=== PATIENT | female | born 1970 | race Caucasian/White ===

== ENCOUNTER 2021-10-16 03:15 | Day surgery (SDC) | payer BC, OTHER, SELFPAY ==
[2021-09-29 10:38] VITALS: BMI 32.3
[2021-10-16 08:16] VITALS: BMI 32.6
--- NOTE | 2021-10-16 08:34 | WPDANESEPPF ---
Anes - Initial Pre Proc Eval Procedure: Operation Date: 10/16/21 09:30 Proposed Procedures p Screening Colonoscopy - Naren Mcgill MD Date/Time: 10/16/21 08:34 Surgeon: Naren Mcgill MD Pre Op Diagnosis: neoplasm screening Patient Data Age: 51 Gender: F Height: 1.65 m Weight: 89 kg Allergies Allergy/AdvReac Type Severity Reaction Status Date / Time Penicillins Allergy Unknown Other Verified 09/29/21 10:35 Home Medications Medication Instructions Recorded Confirmed Type cetirizine 10 mg tablet (Zyrtec) 10 mg PO DAILY 09/29/21 09/29/21 History drospirenone (contraceptive) 4 mg 1 tablet PO DAILY 09/29/21 09/29/21 History (28) tablet (Slynd) ergocalciferol (vitamin D2) 1,250 1 cap PO USEASDIRECTD 09/29/21 09/29/21 History mcg (50,000 unit) capsule fluoxetine 20 mg capsule 20 mg PO DAILY 09/29/21 09/29/21 History ibuprofen 600 mg tablet 600 mg PO Q6H PRN Pain 09/29/21 09/29/21 History lisinopril 20 mg tablet 20 mg PO DAILY 09/29/21 09/29/21 History multivitamin with minerals-folic 1 tablet PO DAILY 09/29/21 09/29/21 History acid 0.4 mg tablet omega-3 fatty acids-fish oil 684 1 cap PO DAILY 09/29/21 10/16/21 History mg-1,200 mg capsule,delayed release rosuvastatin 10 mg tablet 10 mg PO DAILY 09/29/21 09/29/21 History Patient hx anesthesia problems: none Family hx anesthesia problems: none Results Review: All pre-operative results and documents have been reviewed as part of the pre-operative evaluation. [facility] Past Medical History Medical History (Updated 10/16/21 @ 08:54 by Naren Mcgill MD) Depression Hyperlipidemia Hypertension Family History Family History (Updated 06/27/17 @ 08:38 by DOCTOR UNKNOWN) Father Hypertension Family history of arthritis Family history of malignant neoplasm Family history of mental disorder Mother Hypertension Social History Social History Smoking status: Former smoker Tobacco type: cigarettes Smoking end date: 04/29/09 Alcohol intake: current Drinks per week: 10 Living arrangements: with family Spiritual care concerns: No Anes - Eval Final PreProcedure Day of Procedure 10/16/21 08:34 Patient weight: obese Heart: regular rate and rhythm Lungs: clear to auscultation Airway: Mallampati scale class II Neurological: alert and oriented Last oral intake: >/= 8 hours ASA classification: III Emergent: no Anesthetic plan: proceed Anesthesia type and monitoring: general GIVS and standard monitoring Results Review: All pre-operative results and documents have been reviewed as part of the pre-operative evaluation. Informed Consent: The patient's anesthetic plan and its attendant risks and benefits were discussed with the patient/family/POA. Questions were solicited and answers provided to the satisfaction of the patient/family/POA.
[2021-10-16 08:38] VITALS: BP 119/82; PULSE 74; RESP 18; TEMP 36.3; O2SAT 100; BMI 32.6
--- NOTE | 2021-10-16 08:52 | PM.IMHP ---
H&P: HPI History of Present Illness Date/Time: 10/16/21 08:52 Chief Complaint: Family history of colon polyps. Neoplasia screening. Narrative: This is a 51-year-old white female patient presents for screening colonoscopy. Patient's current Weight, appetite and bowel movements are normal. She denies abdominal pain. Family history is significant that her mother had colon polyps. Patient has a previous colonoscopy 2012 that was unremarkable. Review of Systems Review of Systems: review of systems noncontributory. [facility] Past Medical History Medical History (Updated 10/16/21 @ 08:54 by Naren Mcgill MD) Depression Hyperlipidemia Hypertension Family History Family History (Updated 06/27/17 @ 08:38 by DOCTOR UNKNOWN) Father Hypertension Family history of arthritis Family history of malignant neoplasm Family history of mental disorder Mother Hypertension Social History Social History Smoking status: Former smoker Tobacco type: cigarettes Smoking end date: 04/29/09 Alcohol intake: current Drinks per week: 10 Living arrangements: with family Spiritual care concerns: No Meds Home Medications and Allergies Home Medications Medication Instructions Recorded Confirmed Type cetirizine 10 mg tablet (Zyrtec) 10 mg PO DAILY 09/29/21 09/29/21 History drospirenone (contraceptive) 4 mg 1 tablet PO DAILY 09/29/21 09/29/21 History (28) tablet (Slynd) ergocalciferol (vitamin D2) 1,250 1 cap PO USEASDIRECTD 09/29/21 09/29/21 History mcg (50,000 unit) capsule fluoxetine 20 mg capsule 20 mg PO DAILY 09/29/21 09/29/21 History ibuprofen 600 mg tablet 600 mg PO Q6H PRN Pain 09/29/21 09/29/21 History lisinopril 20 mg tablet 20 mg PO DAILY 09/29/21 09/29/21 History multivitamin with minerals-folic 1 tablet PO DAILY 09/29/21 09/29/21 History acid 0.4 mg tablet omega-3 fatty acids-fish oil 684 1 cap PO DAILY 09/29/21 10/16/21 History mg-1,200 mg capsule,delayed release rosuvastatin 10 mg tablet 10 mg PO DAILY 09/29/21 09/29/21 History Allergies Allergy/AdvReac Type Severity Reaction Status Date / Time Penicillins Allergy Unknown Other Verified 09/29/21 10:35 Vital Signs Vital Signs - 24 hr 10/16/21 08:38 Temperature 97.3 F L Pulse Rate 74 Respiratory Rate 18 Blood Pressure 119/82 Pulse Oximetry 100 Oxygen Delivery Room Air Exam Narrative: Physical exam reveals patient to be alert. Vital signs stable. HEENT exam is unremarkable. Patient is anicteric. Lungs are clear to auscultation and to percussion. Heart is without murmur or extra sounds. Abdominal exam bowel sounds are present soft nontender with no organomegaly. Digital external rectal exam is normal. Assessment and Plan Assessment and plan (1) Family history of colonic polyps: Code(s): Z83.71 - Family history of colonic polyps Status: Acute Assessment and Plan: Patient's mother has had colon polyps. For this reason as well as her age screening colonoscopy is advised. Further recommendations will be given after colonoscopy.
[2021-10-16] MEDS: SIMETHICONE ORAL SUSPENSION 20 MG/0.3 ML 30 ML BOTTLE 0.6 ML IRRIGATION (09:14)
[2021-10-16] MEDS: LACTATED RINGERS 1,000 ML 150 ML IV CONT (09:21)
[2021-10-16 09:24] VITALS: BP 120/81; PULSE 59; RESP 23; O2SAT 100
[2021-10-16 09:34] VITALS: BP 133/93; PULSE 59; RESP 20; O2SAT 100
[2021-10-16 09:44] VITALS: BP 141/94; PULSE 64; RESP 20; O2SAT 100
== END 2021-10-16 09:46 | disposition home or self-care (01) ==
PROVIDERS: PCP Physician Assistant; Visit Provider Internal Medicine Gastroenterology
PROC: 0DJD8ZZ Inspection of Lower Intestinal Tract, Via Natural or Artificial Opening Endoscopic (ICD-10-PCS; CPT 45378; principal; 2021-10-16 09:30)
DX: Z12.11 Encounter for screening for malignant neoplasm of colon (principal); K63.5 Polyp of colon; Z83.71 Family history of colonic polyps; K64.8 Other hemorrhoids; F32.A Depression, unspecified; E78.5 Hyperlipidemia, unspecified; I10 Essential (primary) hypertension; Z87.891 Personal history of nicotine dependence; E66.8 Other obesity; Z68.32 Body mass index [BMI] 32.0-32.9, adult
CPT/HCPCS: 45385; 88305; J2704; J7120

== ENCOUNTER → 2021-12-15 07:57 | Outpatient (CLI) | payer BC, OTHER, SELFPAY ==
--- NOTE | ~2021-12-15 | US_ITS ---
EXAMINATION: US right upper quadrant DATE: 12/15/2021 08:23 INDICATION: Right upper quadrant pain TECHNIQUE: Multiple grayscale and Doppler ultrasound images of the abdomen were obtained. COMPARISON: None available FINDINGS: Bowel gas obscures visualization of the pancreas. The visualized portions of the pancreas a re unremarkable. The liver is normal with normal echogenicity and echotexture. No surface nodularity. Normal hepatopetal flow in the main portal vein. There appears to be a stone near the neck of the ga llbladder. There is no gallbladder wall thickening or pericholecystic fluid. The normal common bile d uct measures 4 mm. There was no sonographic [place] sign. IMPRESSION: 1. Probable stone near the gallbladder neck without findings to suggest cholecystitis. Reviewed, dictated and finalized at location A. IMPRESSION: 1. Probable stone near the gallbladder neck without findings to suggest cholecy stitis.
== END ==
PROVIDERS: PCP Physician Assistant; Visit Provider Physician Assistant
DX: R10.11 Right upper quadrant pain (principal)
CPT/HCPCS: 76705

== ENCOUNTER 2021-12-22 07:42 | Outpatient (CLI) | payer BC, OTHER, SELFPAY ==
--- NOTE | 2021-12-22 07:49 | ECG_ITS ---
Measurements Intervals [place] Rate: 63 P: 3 MD: 162 QRS: 13 QRSD: 85 T: 4 QT: 394 QTc: 406 Interpretive Statements SINUS RHYTHM LOW VOLTAGE IN THE LIMB LEADS OTHERWISE WITHIN NORMAL LIMITS NO PREVIOUS ECG AVAILABLE FOR COMPARISON Electronically Signed On 12-22-2021 12:48:09 CDT by Rogerio Reynolds M.D.
[2021-12-22 08:18] LABS: Basophils Absolute Auto 0.1 K/mm3 (0.0-0.1); Basophils Percent Auto 0.7 % (0.2-1.2); Eosinophils Absolute Auto 0.6 K/mm3 (0-0.3); Hematocrit 39.1 % (37.0-47.0); Hemoglobin 13.1 g/dL (12.0-15.0); Immature Granulocyte Absolute 0.02 K/mm3 (0.00-0.031); Immature Granulocyte Percent A 0.3 % (0-0.5); Lymphocytes Absolute Auto 1.54 K/mm3 (0.9-3.2); Lymphocytes Percent Auto 22.1 % (18.3-44.2); Mean Corpuscular HGB Conc 33.5 g/dl (32-36); Mean Corpuscular Hemoglobin 31.7 pg (26-34); Mean Corpuscular Volume 94.7 fl (80-100); Mean Platelet Volume 9.6 fl (7.4-10.4); Monocytes Absolute Auto 0.5 K/mm3 (0.1-0.6); Monocytes Percent Auto 7.4 % (2.6-8.5); Neutrophils Absolute Auto 4.3 K/mm3 (1.3-6.7); Neutrophils Percent Auto 61.5 % (45.5-73.1); Platelet Count Result 216 k/mm3 (150-375); Red Blood Count 4.13 M/mm3 (4.2-5.4)
[2021-12-22 08:32] LABS: Alanine Aminotransferase 25 U/L (6-35); Albumin Level 4.6 g/dL (3.5-5.1); Alkaline Phosphatase 52 U/L (38-126); Amylase 68 U/L (30-110); Aspartate Amino Transferase 27 U/L (14-36); Bilirubin,Total 0.5 mg/dL (0.2-1.3); Lipase 85 U/L (23-300)
== END 2021-12-22 07:43 | disposition home or self-care (01) ==
LOC: ANHSURGERY 07:46
PROVIDERS: PCP Physician Assistant; Visit Provider Surgery
DX: K80.10 Calculus of gallbladder with chronic cholecystitis without obstruction (principal)
CPT/HCPCS: 36415; 80076; 82150; 83690; 85025; 93005

== ENCOUNTER 2021-12-25 02:06 | Day surgery (SDC) | payer BC, OTHER, SELFPAY ==
[2021-12-20 12:12] VITALS: BMI 33.3
--- NOTE | 2021-12-20 12:23 | PC.NURSE ---
Report to the Outpatient Waiting Room, entrance under the green pavilion located off [facility], at time 7:30 on date 12/25/21. OR Time: 9:30. - You and your visitor will be asked to self-screen and do not enter if you have any COVID symptoms. - Only one visitor and NO children visitors are allowed at this time. - The patient visitor is requested to leave or wait in car when not with patient due to restrictions. - A mask is required within the hospital. Patients may have clear liquids (water, carbonated beverages, clear teas, apple juice) until 3 hours prior to surgery (6:30) with a maximum of 20 ounces. - No food from midnight until time of surgery Take the following medications with a SIP of water the morning of surgery: FLUOXETINE Medications to discontinue per physician: VITAMINS/SUPPLEMENTS Date to take last dose: 12/21/21 Please no make-up, nail finnish, hairspray, perfume, deodorant, or body powder the day of surgery. No jewelry (including any body piercings) or valuables the day of surgery, leave them at home. Please take a shower or bath the night before, or the morning of, surgery with an antibacterial soap (HIBICLENS). Wear comfortable, loose fitting clothing. - Jewelry must be removed prior to entering the operating room. Rings and piercings that are not removed may be cut off. - The hospital will not accept responsibility for valuables. - Please leave all valuables, including medications, at home the day of surgery. If you are going home after surgery, a licensed class c truck driver must drive you home. - NO public transportation without another adult. - We recommend that an adult stay with you for 24 hours following discharge. - We also recommend that you do not drive, make important decision, drink alcoholic beverages, or take any drugs that were not prescribed by your health care provider for at least 24 hours after your discharge time. Follow any additional instructions given to you from your surgeon. If you or anyone in your household have experienced Covid symptoms in the past week, please notify your surgeon or the nurse liaison at the phone number below for possible testing. Telephone instructions given to PT Jeff VILLAR and asked if any additional questions and then verbalized understanding. Patient advised to call surgeon office or pre surgery nurse liaison [phone] if any additional questions.
[2021-12-25] VITALS (8 sets, daily range): BP systolic 130–161; BP diastolic 79–99; PULSE 54–67; RESP 10–20; TEMP 36.3; O2SAT 98–100
[2021-12-25] MEDS: ACETAMINOPHEN 500 MG TABLET 1000 MG PO (08:00)
[2021-12-25] MEDS: LACTATED RINGERS 1,000 ML 30 ML IV CONT ×2 (08:06→10:16)
[2021-12-25] MEDS: KETOROLAC 15 MG/ML VIAL (*BKC) IV PUSH (08:31)
--- NOTE | 2021-12-25 08:37 | WPDANESEPPF ---
Anes - Initial Pre Proc Eval Procedure: Operation Date: 12/25/21 09:30 Proposed Procedures p Laparoscopic Cholecystectomy, Possible Intraoperative Cholangiogram, Possible Open - Julio Allen MD Date/Time: 12/25/21 08:37 Surgeon: Julio Allen MD Pre Op Diagnosis: chronic cholecystitis with cholelithiasis Patient Data Age: 51 Gender: F Height: 1.65 m Weight: 89.85 kg Last Vital Signs Temp 36.3 C L 12/25/21 08:11 Pulse 67 12/25/21 08:11 Resp 16 12/25/21 08:11 BP 155/84 H 12/25/21 08:11 Pulse Ox 99 12/25/21 08:11 O2 Del Method Room Air 12/25/21 08:11 Allergies Allergy/AdvReac Type Severity Reaction Status Date / Time Penicillins Allergy Unknown Other Verified 12/25/21 07:48 Home Medications Medication Instructions Recorded Confirmed Type cetirizine 10 mg tablet (Zyrtec) 10 mg PO DAILY 09/29/21 12/25/21 History drospirenone (contraceptive) 4 mg 1 tablet PO DAILY 09/29/21 12/25/21 History (28) tablet (Slynd) ergocalciferol (vitamin D2) 1,250 1 cap PO USEASDIRECTD 09/29/21 12/25/21 History mcg (50,000 unit) capsule fluoxetine 20 mg capsule 20 mg PO DAILY 09/29/21 12/25/21 History ibuprofen 600 mg tablet 600 mg PO Q6H PRN Pain 09/29/21 12/25/21 History lisinopril 20 mg tablet 20 mg PO DAILY 09/29/21 12/25/21 History multivitamin with minerals-folic 1 tablet PO DAILY 09/29/21 12/25/21 History acid 0.4 mg tablet omega-3 fatty acids-fish oil 684 1 cap PO DAILY 09/29/21 12/25/21 History mg-1,200 mg capsule,delayed release rosuvastatin 10 mg tablet 10 mg PO DAILY 09/29/21 12/25/21 History Patient hx anesthesia problems: none and other (motion sickness) Family hx anesthesia problems: none Results Review: All pre-operative results and documents have been reviewed as part of the pre-operative evaluation. [facility] Past Medical History Medical History Anxiety Arthritis Depression Hyperlipidemia Hypertension Surgical History Surgical History H/O section Hx of tonsillectomy Family History Family History Father Hypertension Family history of arthritis Family history of malignant neoplasm Family history of mental disorder Mother Hypertension Social History Social History Smoking status: Former smoker Tobacco type: cigarettes Smoking end date: 04/29/10 Additional smoking assessment comments: SOCIAL SMOKER - ONLY ON WEEKENDS - QUIT 2010 Alcohol intake: current Drinks per week: 6 Substance use: never Substance use type: does not use Living arrangements: with family Spiritual care concerns: No Anes - Eval Final PreProcedure Day of Procedure 12/25/21 08:37 Patient weight: obese Heart: regular rate and rhythm Lungs: decreased breath sounds Airway: Mallampati scale class II Neurological: alert and oriented Last oral intake: >/= 8 hours ASA classification: III Emergent: no Anesthetic plan: proceed Anesthesia type and monitoring: general ETT and standard monitoring Results Review: All pre-operative results and documents have been reviewed as part of the pre-operative evaluation. Informed Consent: The patient's anesthetic plan and its attendant risks and benefits were discussed with the patient/family/POA. Questions were solicited and answers provided to the satisfaction of the patient/family/POA.
--- NOTE | 2021-12-25 08:42 | WPDHPUPDATE1 ---
History and Physical Update Update Date/Time: 12/25/21 08:42 History and Physical has been reviewed, including an updated exam of the patient. There are NO changes in the patient's condition. Risks, benefits, and alternatives have been discussed and questions answered. Patient agrees to proceed with procedure.
[2021-12-25] MEDS: SCOPOLAMINE 1.5 MG PATCH TRANSDERM (08:50)
[2021-12-25] MEDS: ceFAZolin 2 GM/D5W 50 ML 2 GM/50 ML BAG IVPB (08:58)
--- NOTE | 2021-12-25 10:24 | W.PM.PROC2 ---
Procedure Note - Detailed Date of Procedure 12/25/21 Pre-op Diagnosis chronic cholecystitis with cholelithiasis Post-op Diagnosis Same Procedure Performed Laproscopic Cholecystectomy Surgeon Julio Allen MD Compounding Assistant Mary [email or web address].OR assistant director of public works Anesthesia General Indications Patient has been having intermittent episodes of right upper quadrant epigastric pain. (See H&P for further details). Patient has cholelithiasis by ultrasound. Findings Unremarkable gallbladder. Upon removal with careful palpation there does seem to be at least 1 small stone in the gallbladder. Description of Procedure Patient was seen preoperatively in the holding area and risks, benefits and alternatives confirmed. Patient was taken to the operating room and general anesthesia was induced. A time out was then preformed with the surgery team confirming patient and site of surgery. The abdomen was prepped and draped in the usual sterile fashion. Incision was made just below the umbilicus with an 11 blade knife. I placed 2 stay sutures of O- Vicryl on either side of the mid-line fascia beneath the umbilicus and was then able to slide in the [place] cannula through the fascial defect into the peritoneum. First under low flow and then under high flow the abdomen was insufflated with carbon dioxide never exceeding a pressure of 14. Three 5 mm trocars were then introduced under direct vision. The following trocars were introduced under direct vision: a 5 mm in the epigastrium and two 5 mm trocars along the right costal margin laterally in the subcostal area. There were not any adhesions to the underside of the gallbladder. I then carefully used the L-shaped cautery and the [place] dissector to dissect out the triangle of [place]. I then was able to dissect out both the cystic duct and cystic artery and identify a window of safety. The gall bladder was grasped and the cystic duct and artery were dissected free and clipped with an 5 mm endo-clip cut plug packer. The cystic duct and artery were clipped with use of 2 clips on the patient's side 1 on the gallbladder side utilizing a 5 mm endoclip-cut plug packer. The cystic duct was then transected. The cystic artery was also transected at this point. The gall bladder was removed using electrocautery and then removed from the abdomen using a large 10 mm grasper via the umbilical incision. The trocars were removed visualizing hemostasis and the remaining gas evacuated. The large trocar site at the umbilicus was closed with use of the 2 stay sutures of 0 Vicryl mentioned above and also a figure of 8 O-Vicryl suture. The 2 stay sutures mentioned above on either side of the fascia were also tied together to help approximate this midline fascia. Further local anesthetic was placed into each incision for postop pain control. The skin incisions were closed with subcuticular suture of 4-0 Monocryl. Surgical glue then was applied to all the incisions. Patient tolerated the procedure well was taken to the recovery room in good condition. Implants none Estimated Blood Loss -5.0 Drains No Packing No Pathology Yes (Gallbladder) Complications No immediate complications Condition Stable Disposition PACU [facility] Billing Surgery - Charge Forward: Surgery Billing ( Laparoscopic cholecystectomy only)
[2021-12-25] MEDS: fentaNYL CITRATE INJ (*CRX) 100 MCG/2 ML VIAL 25 MCG IV PUSH (10:38)
--- NOTE | 2021-12-25 10:50 | SUR.OPER ---
1039: Simple mask removed.
--- NOTE | 2021-12-25 10:51 | SUR.PHASEI ---
1039: Simple mask removed.
[2021-12-25] MEDS: oxyCODONE HCL (*CRX) 5 MG TAB IR PO (11:19)
== END 2021-12-25 12:15 | disposition home or self-care (01) ==
PROVIDERS: PCP Physician Assistant; Visit Provider Surgery
PROC: 0FT44ZZ Resection of Gallbladder, Percutaneous Endoscopic Approach (ICD-10-PCS; CPT 47562; principal; 2021-12-25 09:30)
DX: K80.10 Calculus of gallbladder with chronic cholecystitis without obstruction (principal); I10 Essential (primary) hypertension; E78.5 Hyperlipidemia, unspecified; F41.9 Anxiety disorder, unspecified; F32.A Depression, unspecified; Z87.891 Personal history of nicotine dependence; E66.9 Obesity, unspecified; Z68.33 Body mass index [BMI] 33.0-33.9, adult
CPT/HCPCS: 47562; 88304; A9270; J0330; J0690; J1100; J1170; J1885; J2210; J2250; J2405; J2704; J2710; J2765; J3010; J7030; J7120

== ENCOUNTER 2022-03-12 08:37 | Emergency (ER) | payer BC, OTHER, SELFPAY ==
--- NOTE | 2022-03-12 08:40 | ED.EAR ---
HPI - Ear Problem General Chief complaint: Ear Stated complaint: Left Ear Pain Time Seen by Provider: 03/12/22 08:40 History of Present Illness HPI Narrative: patient is a 51-year-old female who presents to urgent care complaints of left ear pain. Patient states it started after having sinus congestion, cough and a lot of runny nose for the last 10 days. Patient denies any fevers. States that she has been using [id number] medications for relief. States that it here had a bloody drainage today. No other acute complaints. No acute distress noted. Patient aware the plan of care. Some parts of this dictation were generated by voice recognition software and may contain typographical and/or grammatical inaccuracies. Related Data Home Medications Medication Instructions Recorded Confirmed cetirizine 10 mg tablet (Zyrtec) 10 mg PO DAILY 09/29/21 03/12/22 drospirenone (contraceptive) 4 mg 1 tablet PO DAILY 09/29/21 03/12/22 (28) tablet (Slynd) ergocalciferol (vitamin D2) 1,250 1 cap PO USEASDIRECTD 09/29/21 03/12/22 mcg (50,000 unit) capsule fluoxetine 20 mg capsule 20 mg PO DAILY 09/29/21 03/12/22 ibuprofen 600 mg tablet 600 mg PO Q6H PRN Pain 09/29/21 01/10/22 lisinopril 20 mg tablet 20 mg PO DAILY 09/29/21 03/12/22 multivitamin with minerals-folic 1 tablet PO DAILY 09/29/21 03/12/22 acid 0.4 mg tablet omega-3 fatty acids-fish oil 684 1 cap PO DAILY 09/29/21 03/12/22 mg-1,200 mg capsule,delayed release rosuvastatin 10 mg tablet 10 mg PO DAILY 09/29/21 03/12/22 Allergies Allergy/AdvReac Type Severity Reaction Status Date / Time Penicillins Allergy Unknown Other Verified 03/12/22 08:54 Review of Systems Review of Systems: CONSTITUTIONAL: Denies fever, chills, or sweats. EYES: Denies visual changes, redness, or discharge. ENT: Reports of sinus congestion, postnasal drainage, rhinorrhea and left otalgia CARDIOVASCULAR: Denies chest pain, palpitations, or edema. RESPIRATORY: reports a nonproductive cough without dyspnea GASTROINTESTINAL: Denies abdominal pain, nausea, vomiting, or diarrhea. GENITOURINARY: Denies dysuria or hematuria. SKIN: Denies rash or itching. MUSCULOSKELETAL: Denies back pain, joint pain, or myalgia. NEUROLOGIC: Denies headache, numbness, or weakness. All other systems reviewed are negative, except as documented in HPI. [facility] Past Medical History Medical History (Updated 03/12/22 @ 08:59 by DENNY Cervantes) Anxiety Arthritis Depression Hyperlipidemia Hypertension Surgical History Surgical History (Updated 01/10/22 @ 08:33 by Cindy Hartmann) H/O section Hx laparoscopic cholecystectomy Performed by Dr. Allen on 12/25/21 Hx of tonsillectomy Family History Family History Father Hypertension Family history of arthritis Family history of malignant neoplasm Family history of mental disorder Mother Hypertension Social History Social History Smoking status: Former smoker Tobacco type: cigarettes Smoking end date: 04/29/10 Additional smoking assessment comments: SOCIAL SMOKER - ONLY ON WEEKENDS - QUIT 2010 Alcohol intake: current Drinks per week: 6 Substance use: never Substance use type: does not use Spiritual care concerns: No Comments At the time of my signature, I reviewed and agree with the nursing past medical, surgical, social, and family history. There is no relevant family history pertinent to the patient complaint. Exam Narrative: GENERAL: This is a well-nourished, well-developed patient, in no apparent distress. HEAD: normocephalic, atraumatic. EYES: PERRL. Sclera clear/white. Vision is grossly intact. EARS: External ears normal, right auditory canals clear and without drainage, spontaneous rupture with clear drainage to the left. Right TM normal without perforation. Hearing grossly intact. NOSE: Exte
[2022-03-12 08:42] VITALS: BP 141/90; PULSE 77; RESP 20; TEMP 36.7; O2SAT 98
== END 2022-03-12 09:04 | disposition home or self-care (01) ==
PROVIDERS: Emergency Provider Nurse Practitioner Family; PCP Physician Assistant
DX: H72.92 Unspecified perforation of tympanic membrane, left ear (principal); J32.9 Chronic sinusitis, unspecified; Z87.891 Personal history of nicotine dependence; M19.90 Unspecified osteoarthritis, unspecified site; E78.5 Hyperlipidemia, unspecified; I10 Essential (primary) hypertension; F41.9 Anxiety disorder, unspecified; F32.A Depression, unspecified
CPT/HCPCS: 99213; G0463

== ENCOUNTER → 2022-11-12 13:26 | Outpatient (CLI) | payer BC, OTHER, SELFPAY ==
--- NOTE | ~2022-11-12 | MM_ITS ---
EXAMINATION: MM screening elda BI w porter HISTORY: Screening TECHNIQUE: Craniocaudal and mediolateral oblique 3-D tomosynthesis images were obtained and synthetic 2-D images were generated. CAD analysis was submitted and interpreted. COMPARISON: No prior mammogram is available for comparison at this institution. BREAST PARENCHYMAL COMPOSITION: There are scattered areas of fibroglandular density. FINDINGS: There is focal asymmetry medially in the right breast on CC view. There is no mammographic evidence for malignancy in the left breast. IMPRESSION: 1. Focal right breast asymmetry. 2. Additional mammographic views and possible breast ultrasound are recommended. BI-RADS Category 0: Incomplete: Needs additional imaging evaluation. Reviewed, dictated and finalized at location A. IMPRESSION: 1. Focal right breast asymmetry. 2. Additional mammographic views and possible breast ultrasound are recommended . BI-RADS Category 0: Incomplete: Needs additional imaging evaluation.
== END ==
PROVIDERS: PCP Physician Assistant; Visit Provider Physician Assistant
DX: Z12.31 Encounter for screening mammogram for malignant neoplasm of breast (principal); R92.8 Other abnormal and inconclusive findings on diagnostic imaging of breast
CPT/HCPCS: 77063; 77067

== ENCOUNTER 2023-03-24 18:49 | Emergency (ER) | payer BC, OTHER, SELFPAY ==
[2023-03-24 18:55] VITALS: BP 171/95; PULSE 77; RESP 16; TEMP 36.4; O2SAT 99
--- NOTE | 2023-03-24 18:58 | ED.EAR ---
HPI - Ear Problem General Chief complaint: Ear Stated complaint: Ear Pain Source: patient and RN notes reviewed History of Present Illness HPI Narrative: 52 yo F presents to urgent care with complaints of left ear pain starting today. Denies any fevers, chills, N/V/D, chest pain, SOB, or sore throat. Pt states she is prone to ear infections this time of year. Pt did take ibuprofen and Tylenol earlier today with minimal relief. Related Data Home Medications Medication Instructions Recorded Confirmed cetirizine 10 mg tablet (Zyrtec) 10 mg PO DAILY 09/29/21 03/12/22 drospirenone (contraceptive) 4 mg 1 tablet PO DAILY 09/29/21 03/12/22 (28) tablet (Slynd) ergocalciferol (vitamin D2) 1,250 1 cap PO USEASDIRECTD 09/29/21 03/12/22 mcg (50,000 unit) capsule ibuprofen 600 mg tablet 600 mg PO Q6H PRN Pain 09/29/21 01/10/22 lisinopril 20 mg tablet 20 mg PO DAILY 09/29/21 03/12/22 multivitamin with minerals-folic 1 tablet PO DAILY 09/29/21 03/12/22 acid 0.4 mg tablet omega-3 fatty acids-fish oil 684 1 cap PO DAILY 09/29/21 03/12/22 mg-1,200 mg capsule,delayed release rosuvastatin 10 mg tablet 10 mg PO DAILY 09/29/21 03/12/22 Allergies Allergy/AdvReac Type Severity Reaction Status Date / Time Penicillins Allergy Unknown Other Verified 03/12/22 08:54 Review of Systems Review of Systems: CONSTITUTIONAL: Denies fever, chills, or sweats. EYES: Denies visual changes, redness, or discharge. ENT: Denies sore throat CARDIOVASCULAR: Denies chest pain, palpitations, or edema. RESPIRATORY: Denies cough or dyspnea. GASTROINTESTINAL: Denies abdominal pain, nausea, vomiting, or diarrhea. GENITOURINARY: Denies dysuria or hematuria. SKIN: Denies rash or itching. MUSCULOSKELETAL: Denies back pain, joint pain, or myalgia. NEUROLOGIC: Denies headache, numbness, or weakness. Pertinent positives per HPI. [facility] Past Medical History Medical History (Updated 03/24/23 @ 19:02 by Evelia Ortega APRN) Anxiety Arthritis Depression Hyperlipidemia Hypertension Surgical History Surgical History (Updated 01/10/22 @ 08:33 by Cindy Hartmann) H/O section Hx laparoscopic cholecystectomy Performed by Dr. Allen on 12/25/21 Hx of tonsillectomy Family History Family History Father Hypertension Family history of arthritis Family history of malignant neoplasm Family history of mental disorder Mother Hypertension Social History Social History Smoking status: Former smoker Tobacco type: cigarettes Smoking end date: 04/29/10 Additional smoking assessment comments: SOCIAL SMOKER - ONLY ON WEEKENDS - QUIT 2010 Alcohol intake: current Drinks per week: 6 Substance use: never Substance use type: does not use Living arrangements: with family Spiritual care concerns: No Comments At the time of my signature, I reviewed and agree with the nursing past medical, surgical, social, and family history. There is no relevant family history pertinent to the patient complaint. Exam Narrative: GENERAL: This is a well-nourished, well-developed patient, in no apparent distress. HEAD: normocephalic, atraumatic. EYES: Sclera clear/white. Vision is grossly intact. EARS: External ears normal, auditory canals clear and without drainage, Right TM normal without perforation. Hearing grossly intact. left TM erythremic and bulging. NOSE: External nose normal with no obvious nasal discharge, nares without redness, no rhinorrhea. THROAT: Mucous membranes moist, posterior pharynx clear. NECK: Neck supple, non-tender without lymphadenopathy, masses or thyromegaly. CARDIOVASCULAR: Regular rate and rhythm without murmurs, gallops, or rubs. RESPIRATORY: Clear to auscultation. Breath sounds equal bilaterally. No wheezes, rales, or rhonchi. GASTROINTESTINAL: Abdomen soft, non-tender, nondistended. Bowel sounds are a
== END 2023-03-24 19:10 | disposition home or self-care (01) ==
PROVIDERS: Emergency Provider Nurse Practitioner Family; PCP Physician Assistant
DX: H66.90 Otitis media, unspecified, unspecified ear (principal); E78.5 Hyperlipidemia, unspecified; I10 Essential (primary) hypertension; Z87.891 Personal history of nicotine dependence
CPT/HCPCS: 99213; G0463

== ENCOUNTER 2023-12-06 07:43 | Outpatient (CLI) | payer BC, OTHER, SELFPAY ==
--- NOTE | ~2023-12-06 | XR_ITS ---
XR lumbar spine 2-3V 12/06/2023 08:05 Indication: Low back pain Procedure: 3 views lumbar spine Comparison: No prior studies for comparison. Findings: There is disc narrowing at all lumbar levels. Vertebral body heights are maintained. Normal lumbar lordosis. No evidence for spondylolysis or spondylolisthesis. There is facet hypertrophy at L 3-4, L4-5 and L5-S1. There are calcific densities overlying the right colon, possibly bowel content. There are cholecystec samantha clips. Impression: 1: Moderate lumbar spondylosis. Reviewed, dictated and finalized at location B. Impression: 1: Moderate lumbar spondylosis.
== END 2023-12-06 07:44 | disposition home or self-care (01) ==
PROVIDERS: PCP Physician Assistant; Visit Provider Physician Assistant
DX: M47.896 Other spondylosis, lumbar region (principal)
CPT/HCPCS: 72100

== ENCOUNTER 2023-12-31 09:36 | Outpatient (CLI) | payer BC, OTHER, SELFPAY ==
--- NOTE | 2023-12-31 11:30 | NEURO_ITS ---
Impression: # Complains of paresthesia of lower extremities. Non-diabetic. # Normal motor and sensory Nerve Conduction Study. # Normal needle/EMG exam. # Clinical correlation recommended. Nerve Conduction Studies Anti Sensory Summary Table Stim Site NR Peak (ms) P-T Amp (?V) Site1 Site2 Delta-P (ms) Dist (cm) Solomon (m/s) Left Sup Fibular Anti Sensory (Ant Lat Mall) 14 cm 3.2 7.6 14 cm Ant Lat Mall 3.2 16.0 50 Right Sup Fibular Anti Sensory (Ant Lat Mall) 14 cm 3.8 8.6 14 cm Ant Lat Mall 3.8 16.0 42 Left Sural Anti Sensory (Lat Mall) Calf 3.8 8.4 Calf Lat Mall 3.8 16.0 42 Right Sural Anti Sensory (Lat Mall) Calf 3.9 1.2 Calf Lat Mall 3.9 16.0 41 Motor Summary Table Stim Site NR Onset (ms) O-P Amp (mV) Site1 Site2 Delta-0 (ms) Dist (cm) Solomon (m/s) Left Peroneal Motor (Vastus Med) Ankle 4.4 2.8 Popit Ankle 8.1 40.0 49 Popit 12.5 3.1 Right Peroneal Motor (Vastus Med) Ankle 4.3 1.5 Popit Ankle 7.6 36.0 47 Popit 11.9 1.8 Left Tibial Motor (Abd Bentley Brev) Ankle 4.5 7.1 Knee Ankle 8.2 40.0 49 Knee 12.7 4.2 Right Tibial Motor (Abd Bentley Brev) Ankle 4.4 3.2 Knee Ankle 7.7 36.0 47 Knee 12.1 2.6 F Wave Studies NR F-Lat (ms) L-R F-Lat (ms) Left Peroneal (Mrkrs) (EDB) 48.91 0.15 Right Peroneal (Mrkrs) (EDB) 48.76 0.15 Left Tibial (Mrkrs) (Abd Hallucis) 50.35 0.35 Right Tibial (Mrkrs) (Abd Hallucis) 50.01 0.35 EMG Side Muscle Nerve Root Ins Act Fibs Amp Dur Recrt Comment Right AntTibialis Dp Br Fibular L4-5 Nml Nml Nml Nml Nml Right Gastroc Tibial S1-2 Nml Nml Nml Nml Nml Right Fibularis Long Sup Br Fibular L5-S1 Nml Nml Nml Nml Nml Right Flex Dig Long Tibial L5-S2 Nml Nml Nml Nml Nml Right Ext Dig Brev Dp Br Fibular L5, S1 Nml Nml Nml Nml Nml Right QuadratusFem QuadFemoris L4-5, S1 Nml Nml Nml Nml Nml Left AntTibialis Dp Br Fibular L4-5 Nml Nml Nml Nml Nml Left Gastroc Tibial S1-2 Nml Nml Nml Nml Nml Left Fibularis Long Sup Br Fibular L5-S1 Nml Nml Nml Nml Nml Left Flex Dig Long Tibial L5-S2 Nml Nml Nml Nml Nml Left Ext Dig Brev Dp Br Fibular L5, S1 Nml Nml Nml Nml Nml Left QuadratusFem QuadFemoris L4-5, S1 Nml Nml Nml Nml Nml MTDD
== END 2023-12-31 09:37 | disposition home or self-care (01) ==
LOC: ANHNEURO 09:38
PROVIDERS: PCP Physician Assistant; Visit Provider Physician Assistant
DX: R20.2 Paresthesia of skin (principal)
CPT/HCPCS: 95886; 95910

== ENCOUNTER 2024-07-24 10:34 | Outpatient (CLI) | payer BC, OTHER, SELFPAY ==
--- NOTE | ~2024-07-24 | MM_ITS ---
EXAMINATION: MM screening [facility] BI w porter HISTORY: Screening TECHNIQUE: Craniocaudal and mediolateral oblique 3-D tomosynthesis images were obtained and synthetic 2-D images were generated. CAD analysis was submitted and interpreted. COMPARISON: 11/12/2022 and dating back to 07/29/2018 BREAST PARENCHYMAL COMPOSITION: There are scattered areas of fibroglandular density. FINDINGS: Redemonstration of asymmetry within the lower inner right breast, unchanged from prior. Punctate and bulky calcifications are detected bilaterally, stable and benign in appearance. Stable parenchymal pattern without suspicious microcalcifications, architectural distortion, discrete masses or significant asymmetry. IMPRESSION: 1. No mammographic evidence of malignancy. 2. Recommend routine screening mammography in one year. BI-RADS Category 2: Benign finding(s). Reviewed, dictated and finalized at location A.
== END 2024-07-24 10:35 | disposition home or self-care (01) ==
LOC: MICIMG 10:35
PROVIDERS: PCP Physician Assistant; Visit Provider Obstetrics & Gynecology Gynecology
DX: Z12.31 Encounter for screening mammogram for malignant neoplasm of breast (principal)
CPT/HCPCS: 77063; 77067

== ENCOUNTER 2024-08-06 12:44 | Outpatient (CLI) | payer BC, OTHER, SELFPAY ==
--- NOTE | ~2024-08-06 | US_ITS ---
US transvaginal Ordering provider: Wen Moura, GEOTECHNICAL DEPARTMENT MANAGER History: . abn uterine and vaginal bleeding . Comparison: None. Technique: endovaginal ultrasound of the pelvis (Doppler ultrasound interrogation techniques used as needed for this exam.) FINDINGS: CERVIX: Normal. UTERUS: Measures 9.8x 5.2x 7.1 cm in length which is within normal limits and is anteverted. Heterog eneous area seen in the uterus measuring 3.4 x 3.4 x 3.6 cm. This may represent a fibroid. Follow-up advised. ENDOMETRIUM: Normal in thickness measuring 12.6 mm. No endometrial masses, cysts or fluid. CUL DE SAC: No free fluid. RIGHT OVARY: Normal in size measuring 2.3x 1.1x 1.9 cm. Normal echotexture. Doppler vascular flow pre sent. LEFT OVARY: Normal in size measuring 4.4x 2.6x 3.6 cm Normal echotexture. Doppler vascular flow prese nt. Simple cyst measuring 3.8 x 1.8 x 2.9 cm. ADNEXA: Normal. No mass. IMPRESSION: Fibroid uterus. Slightly thickened endometrium. Follow-up and further evaluation advised. Right ovari an cyst. Otherwise, normal pelvic ultrasound. Reviewed, dictated and finalized at location A. IMPRESSION: Fibroid uterus. Slightly thickened endometrium. Follow-up and further evaluatio n advised. Right ovarian cyst. Otherwise, normal pelvic ultrasound.
== END 2024-08-06 12:45 | disposition home or self-care (01) ==
PROVIDERS: PCP Physician Assistant; Visit Provider Nurse Practitioner
DX: N93.8 Other specified abnormal uterine and vaginal bleeding (principal); D25.9 Leiomyoma of uterus, unspecified
CPT/HCPCS: 76830

== ENCOUNTER 2024-09-01 08:27 | Outpatient (CLI) | payer BC, OTHER, SELFPAY ==
--- OUTSIDE RECORDS SUMMARY | 2024-09-01 08:43 | XMS_ITS | Clinical Summary ---
Author Organization [facility] Address [address] [place] [phone] Phone Care Team Providers Care Woven Label Designer Name Role Phone Unavailable Primary Care Provider Unavailabl e Encounters Date Type Department Care Team Description 08/11/2024 External Device Data [facility] ABSTRACTION Provider, Abstract 07/15/2024 External Device Data [facility] ABSTRACTION Provider, Abstract 07/04/2024 External Device Data [facility] ABSTRACTION Provider, Abstract 07/03/2024 External Device Data [facility] ABSTRACTION Provider, Abstract 06/30/2024 External Device Data [facility] ABSTRACTION Provider, Abstract 06/16/2024 External Device Data [facility] ABSTRACTION Provider, Abstract from Last 3 Months Immunizations Immunization Administration Dates Next Due INFLUENZA VACCINE QUADRIVALE NT 3 YR UP PF IM 02/10/2018 INFLUENZA VACCINE QUADRIVALE NT 6 MOS UP PF IM 02/06/2023,01/24/2022,02/08/2021,2019 INFLUENZA VACCINE TRIVALENT SPLIT VIRUS, (6 MOS UP), 0.5ML (PF), IM 02/05/2024 Social History Tobacco Use Types Packs/Day Years Used Date Smoking Tobacco: Never Assessed Comments Unknown Sex and Gender Information Value Date Recorded Sex Assigned at Not on file Legal Sex Female 2:37 PM [employer] Gender Identity Not on file Sexual Orientation Not on file Plan of Treatment Health Maintenance Due Date Last Done Comments DTAP/TDAP/TD VACCINES (1 - Tdap) 1991 HEPATITIS B VACCINES (1 of 3 - 19+ 3-dose series) 1991 HPV/Cotest (21-29) 1993 CERVICAL CANCER SCREENING 2002 HPV/Cotest (30-65) 2002 PAP SMEAR 2002 BREAST CANCER SCREENING 2012 FIT-DNA Q 3 years 2017 FIT/FOBT Q 1 year 2017 Flex Sig/CT Colonography Q 5 years 2017 ZOSTER VACCINE (1 of 2) 2022 COLORECTAL SCREENING 04/28/2024 04/28/2014 Colorectal Cancer Screening 04/28/2024 INFLUENZA VACCINE Completed 02/05/2024, , 01/24/2022, Additional history exists Insurance [facility] [employer] CHOICE
--- OUTSIDE RECORDS SUMMARY | 2024-09-01 08:44 | XMS_ITS | Data Portability ---
Author Organization [place] - [email or web address], Main Office Address [address] [place] [address] Assessment Encounter Date Assessment Date Assessment LastModified by Organization Details LastModified Time 08/30/2022 08/30/2022 colonoscopy dec 2021, sessile polyp repeat 5 years. [email or web address] Not available 08/30/2022 09:24:45 Plan of Treatment Reminders Order Date Submit Date Provider Last Modified By Organization Details Last Modified Time Details Appointments None recorded. Lab vitamin D, 25-hydroxy, total, serum 2022 023 [employer] [facility], [address], [place], [address], 3 09:13:43 CMP, serum or plasma 2022 023 [employer] [facility], [address], [place], [address], 3 09:13:41 CBC w/ auto diff 2022 023 [employer] [facility], [address], [place], [address], 3 09:13:44 TSH + free T4, serum 2022 023 [employer] [facility], [address], [place], [address], 3 09:13:39 HbA1c (hemoglobin A1c), blood 2022 023 [employer] [facility], [address], [place], [address], 3 09:13:42 lipid panel, serum 2022 023 [employer] [facility], [address], [place], [address], 3 09:13:41 Referral None recorded. Procedures None recorded. Surgeries None recorded. Imaging MAMMO, screening, digital, bilateral 2022 023 [email or web address], [address], [address] [address], [place], [address], 3 12:50:15 Medication Orders phentermine 37.5 mg capsule 2022 023 [id number], [address], [place], [place], [id number], 3 14:17:58 phentermine 37.5 mg capsule 2022 023 [id number], [address], [place], [place], [id number], 3 15:04:46 Patient TargetsNo targets recorded. Patient InstructionsNo instructions recorded. Reason for Referral None Reported. Results Created Date Observation Date Name Description Value Unit Range Abnormal Flag Note LastModifiedBy Organization Detail LastModifiedTime 09/06/19 23 09/06/2022 TSH+F REE T4 TSH 4.51 mIU/L high Refer ence Range > or = 20 Years 0.40- 4.50 Pregn gunnar Range s First trime ster 0.26- 2.66 Secon d trime ster 0.55- 2.73 Third trime ster 0.43- 2.91 Not Available [facility] [address] [place], [address], 09/06/2022 09:13:39 09/06/19 23 09/06/2022 TSH+F REE T4 T4, free 1.0 NG/dL 0.8-1. 8 normal Not Available [address], [address], 09/06/2022 09:13:39 09/06/19 23 09/06/2022 LIPID PANEL WITH RATIO S cholesterol, total 177 mg/dL <200 normal Not Available [address], [address], 09/06/2022 09:13:41 09/06/1909/06/2022 LIPID PANEL WITH RATIO S HDL cholesterol 55 mg/dL > or = 50 normal Not Available [address], [address], 09/06/2022 09:13:41 09/06/1909/06/2022 LIPID PANEL WITH RATIO S triglyceride s 114 mg/dL <150 normal Not Available [address], [address], 09/06/2022 09:13:41 09/06/1909/06/2022 LIPID PANEL WITH RATIO S LDL-choleste rol 101 mg/dL _(dania c) high Refer ence range : <100 Mitch able range <100 mg/dL for prima ry preve ntion ; <70 mg/dL for patie nts with CHD or diabe tic patie nts with > or = 2 CHD risk facto rs. LDL-C is now calcu lated using the Katie n-Hop kins calcu mikayla n, which is a valid ated novel tez gaona than the Fried efra equat ion in the estim ation of LDL-C . Katie herrera SS et al. SHAYNA. 2013; 310(1 9): 2061- 2068 (http ://ed ucati on.Qu estDi agnos tics. com/f aq/FA Q164) Not Available [address] [place], [address], 09/06/2022 09:13:41 09/06/1909/06/2022 LIPID PANEL WITH RATIO S chol/HDLC ratio 3.2 (calc ) <5.0 normal Not Available [facility] [address], [address], 09/06/2022 09:13:41 09/06/1909/06/2022 LIPID PANEL WITH RATIO S LDL/HDL ratio 1.8 (calc ) Below avera ge Risk: <2.34 Hannacroix ge Risk: 2.35- 4.12 Moder ate Risk: 4.13- 5.56 High Risk: >5.57 Not Available [facility] [address], [address], 09/06/2022 09:13:41 09/06/1909/06/2022 LIPID PANEL WITH RATIO S non HDL cholesterol 122 mg/dL _(dania c) <130 normal For patie nts with diabe aditi plus 1 major ASCVD risk facto r, treat ing to a non-H DL-C goal of <100 mg/dL (LDL- C of <70 mg/dL ) is consi lela das pemere c optio n. Not Available [address], [address], 09/06/2022 09:13:41 09/06/1909/06/2022 COMPR EHENS BEVERLEY METAB OLIC PANEL glucose 82 mg/dL 65-99 normal Fasti ng refer ence inter jeffrey Not Available [facility] [address], [address], 09/06/2022 09:13:41 09/06/1909/06/2022 COMPR EHENS BEVERLEY METAB OLIC PANEL urea nitrogen (BUN) 14 mg/dL 7-25 normal Not Available [facility] [address] [place], [address], 09/06/2022 09:13:41 09/06/19 23 09/06/2022 COMPR EHENS BEVERLEY METAB OLIC PANEL creatinine 0.97 mg/dL 0.50-1 .03 normal Not Available [address], [address], 09/06/2022 09:13:41 09/06/19 23 09/06/2022 COMPR EHENS BEVERLEY METAB OLIC PANEL eGFR 71 mL/mi n/1.7 3m2 > or = 60 normal The eGFR is based on the CKD-E PI 2020 equat ion. To calcu late the new eGFR from a previ ous Creat inine or Cysta tin C resul t, go to https ://maira echevarria/darien lima s/ kdoqi /gfr% 5Fcal culat or Not Available [address], [address], 09/06/2022 09:13:41 09/06/19 23 09/06/2022 COMPR EHENS BEVERLEY METAB OLIC PANEL BUN/creatini ne ratio NOT APPLIC ABLE (calc ) 6-22 Not Available [address], [address], 09/06/2022 09:13:41 09/06/19 23 09/06/2022 COMPR EHENS BEVERLEY METAB OLIC PANEL sodium 138 mmol/ L 135-14 6 normal Not Available [address], [address], 09/06/2022 09:13:41 09/06/19 23 09/06/2022 COMPR EHENS BEVERLEY METAB OLIC PANEL potassium 4.6 mmol/ L 3.5-5. 3 normal Not Available [address], [address], 09/06/2022 09:13:41 09/06/19 23 09/06/2022 COMPR EHENS BEVERLEY METAB OLIC PANEL chloride 102 mmol/ L 98-110 normal Not Available [address], [address], 09/06/2022 09:13:41 09/06/19 23 09/06/2022 COMPR EHENS BEVERLEY METAB OLIC PANEL carbon dioxide 27 mmol/ L 20-32 normal Not Available [address], [address], 09/06/2022 09:13:41 09/06/19 23 09/06/2022 COMPR EHENS BEVERLEY METAB OLIC PANEL calcium 10.2 mg/dL 8.6-10 .4 normal Not Available [address], [address], 09/06/2022 09:13:41 09/06/19 23 09/06/2022 COMPR EHENS BEVERLEY METAB OLIC PANEL protein, total 7.0 g/dL 6.1-8. 1 normal Not Available [address], [address], 09/06/2022 09:13:41 09/06/19 23 09/06/2022 COMPR EHENS BEVERLEY METAB OLIC PANEL albumin 5.0 g/dL 3.6-5. 1 normal Not Available [address], [address], 09/06/2022 09:13:41 09/06/19 23 09/06/2022 COMPR EHENS BEVERLEY METAB OLIC PANEL globulin 2.0 g/dL_ (calc ) 1.9-3. 7 normal Not Available [address], [address], 09/06/2022 09:13:41 09/06/19 23 09/06/2022 COMPR EHENS BEVERLEY METAB OLIC PANEL albumin/glob ulin ratio 2.5 (calc ) 1.0-2. 5 normal Not Available [address], [address], 09/06/2022 09:13:41 09/06/19 23 09/06/2022 COMPR EHENS BEVERLEY METAB OLIC PANEL bilirubin, total 0.5 mg/dL 0.2-1. 2 normal Not Available [address] [address] [place], [address], 09/06/2022 09:13:41 09/06/19 23 09/06/2022 COMPR EHENS BEVERLEY METAB OLIC PANEL alkaline phosphatase 45 U/L 37-153 normal Not Available [address] [address] [place], [address], 09/06/2022 09:13:41 09/06/19 23 09/06/2022 COMPR EHENS BEVERLEY METAB OLIC PANEL AST 21 U/L 10-35 normal Not Available [address], [address], 09/06/2022 09:13:41 09/06/19 23 09/06/2022 COMPR EHENS BEVERLEY METAB OLIC PANEL ALT 23 U/L 6-29 normal Not Available [address], [address], 09/06/2022 09:13:41 09/06/1909/06/2022 HEMOG LOBIN A1C hemoglobin A1C 4.9 %_of_ total _HGB <5.7 normal For the purpo se of jesus marshall for the prese nce of diabe aditi: <5.7% Consi stent with the absen ce of diabe aditi 5.7-6 .4% Consi stent with incre ased risk for diabe aditi (pred iabet es) > or =6.5% Consi stent with diabe aditi This assay resul t is consi stent with a decre ased risk of diabe aditi. Curre ntly, no conse nsus exist s mona kramer use of hemog lobin A1c for diagn osis of diabe aditi in child casey. Accor ding to Ameri can Diabe aditi Assoc iatio n (ADA) guide lines , hemog lobin A1c <7.0% repre sents optim al contr ol in non-p regna nt diabe tic patie nts. Diffe rent ri cs may apply to speci fic patie nt popul ation s. Stand ards of Medic al Care in Diabe aditi(A DA). Not Available [facility] [address] [address] [place], [address], 09/06/2022 09:13:42 09/06/1909/06/2022 VITAM IN D,25- OH,TO MANDY,I A vitamin D,25-oh,tota l,ia 104 NG/mL 30-100 high Vitam in D Statu s 25-OH Vitam in D: Defic iency : <20 ng/mL Insuf ficie ncy: 20 - 29 ng/mL Optim al: > or = 30 ng/mL For 25-OH Vitam in D testi ng on patie nts on D2-you pplem entat ion and patie nts for whom quant itati on of D2 and D3 fract ions is requi red, the [facility] e[facility](TM ) 25-OH VIT D, (D2,D 3), LC/MS /MS is recom juan d: order code 82944 (sue ents >2yrs ). See Note 1 Note 1 For addit ional infor colin gaspar refer to http: //robert herrera.Joseph stDia gnost ics.c om/fa q/FAQ 199 (This link is being provi ded for infor garo swift/ allen wooten purpo ses only. ) Not Available [facility] [address] [address] [place], [address], 09/06/2022 09:13:43 09/06/1909/06/2022 CBC (INCL UDES DIFF/ PLT) white blood cell count 5.2 thous and/u L 3.8-10 .8 normal Not Available [facility] [address] [address] [place], [address], 09/06/2022 09:13:44 09/06/19 23 09/06/2022 CBC (INCL UDES DIFF/ PLT) red blood cell count 4.16 phoebe on/uL 3.80-5 .10 normal Not Available [address], [address], 09/06/2022 09:13:44 09/06/19 23 09/06/2022 CBC (INCL UDES DIFF/ PLT) hemoglobin 13.3 g/dL 11.7-1 5.5 normal Not Available [address], [address], 09/06/2022 09:13:44 09/06/1909/06/2022 CBC (INCL UDES DIFF/ PLT) hematocrit 40.5 % 35.0-4 5.0 normal Not Available [address], [address], 09/06/2022 09:13:44 09/06/19 23 09/06/2022 CBC (INCL UDES DIFF/ PLT) MCV 97.4 fL 80.0-1 00.0 normal Not Available [address], [address], 09/06/2022 09:13:44 09/06/1909/06/2022 CBC (INCL UDES DIFF/ PLT) MCH 32.0 pg 27.0-3 3.0 normal Not Available [address], [address], 09/06/2022 09:13:44 09/06/1909/06/2022 CBC (INCL UDES DIFF/ PLT) MCHC 32.8 g/dL 32.0-3 6.0 normal Not Available [address], [address], 09/06/2022 09:13:44 09/06/1909/06/2022 CBC (INCL UDES DIFF/ PLT) RDW 12.5 % 11.0-1 5.0 normal Not Available [facility] [address], [address], 09/06/2022 09:13:44 09/06/1909/06/2022 CBC (INCL UDES DIFF/ PLT) platelet count 237 thous and/u L 140-40 0 normal Not Available [address], [address], 09/06/2022 09:13:44 09/06/19 23 09/06/2022 CBC (INCL UDES DIFF/ PLT) MPV 10.4 fL 7.5-12 .5 normal Not Available [address], [address], 09/06/2022 09:13:44 09/06/19 23 09/06/2022 CBC (INCL UDES DIFF/ PLT) absolute neutrophils 3333 cells /uL 1500-7 800 normal Not Available [address], [address], 09/06/2022 09:13:44 09/06/19 23 09/06/2022 CBC (INCL UDES DIFF/ PLT) absolute lymphocytes 1414 cells /uL 850-39 00 normal Not Available [address], [address], 09/06/2022 09:13:44 09/06/1909/06/2022 CBC (INCL UDES DIFF/ PLT) absolute monocytes 354 cells /uL 200-95 0 normal Not Available [facility] [address], [address], 09/06/2022 09:13:44 09/06/1909/06/2022 CBC (INCL UDES DIFF/ PLT) absolute eosinophils 78 cells /uL 15-500 normal Not Available [facility] [address], [address], 09/06/2022 09:13:44 09/06/19 23 09/06/2022 CBC (INCL UDES DIFF/ PLT) absolute basophils 21 cells /uL 0-200 normal Not Available [address], [address], 09/06/2022 09:13:44 09/06/19 23 09/06/2022 CBC (INCL UDES DIFF/ PLT) neutrophils 64.1 % normal Not Available [facility] [address], [address], 09/06/2022 09:13:44 09/06/19 23 09/06/2022 CBC (INCL UDES DIFF/ PLT) lymphocytes 27.2 % normal Not Available [facility] [address], [address], 09/06/2022 09:13:44 09/06/19 23 09/06/2022 CBC (INCL UDES DIFF/ PLT) monocytes 6.8 % normal Not Available [address], [address], 09/06/2022 09:13:44 09/06/19 23 09/06/2022 CBC (INCL UDES DIFF/ PLT) eosinophils 1.5 % normal Not Available [address], [address], 09/06/2022 09:13:44 09/06/19 23 09/06/2022 CBC (INCL UDES DIFF/ PLT) basophils 0.4 % normal Not Available [address], [address], 09/06/2022 09:13:44 11/13/19 23 11/12/2022 MAMMO , jesus marshall, digit al, bilat eral No observ ation record ed. [email or web address] [facility] [address], [place], [address], 04/30/2023 13:42:22 11/21/1911/12/2022 MAMMO , scree rolando, digit al, bilat eral No observ ation record ed. [email or web address] [facility] [address], [place], [address], 04/30/2023 13:42:22 Result Notes None recorded. Problems Name Problem SNOMED Code Status Onset Date Resolution Date Notes Provider Name and Address Organization Details Recorded Time Benign hypertensi on 47478461 Active Not Available [facility] 3 17:44:46 Dysfunctio n of left eustachian tube 4481747582877 106 Active 2022 Not Available [facility] 3 17:44:46 Serous otitis media of left ear 8872097493833 103 Active 2022 Not Available [facility] 3 17:44:46 Benign essential hypertensi on 3161086 Active 2021 Not Available [facility] 3 17:44:46 Lumbar radiculopa thy 793633089 Active Not Available [facility] 3 17:44:46 Gallstone 986589420 Active 2021 Not Available [facility] 3 17:44:46 Mixed hyperlipid emia 687729254 Active 2021 Not Available [facility] 3 17:44:46 Right upper quadrant pain 624983783 Active 2021 Not Available [facility] 3 17:44:46 Lower urinary tract symptoms 972655227 Active 2021 Not Available [facility] 3 17:44:46 Vitamin D deficiency 15431857 Active Not Available [facility] 3 17:44:46 Pain of hip region 00893551 Active Not Available [facility] 3 17:44:46 Cough 78470883 Active 2021 Not Available [facility] 3 17:44:46 Hyperlipid emia 52237964 Active Not Available [facility] 3 17:44:47 Liver enzymes level above reference range 037474773 Active Not Available [facility] 17:44:47 Neck pain 13934976 Active Not Available [facility] 17:44:47 Upper respirator y infection 01207561 Active 2022 AKIKO Lov[address] [facility], [address], [place], [address] , [facility] [employer] [facility] 15:48:45 Problem Notes None recorded. Procedures Surgical History Date Name Laterality Status Provider Name and Address Organization Details Recorded Time 12/26/19 22 Cholecystectomy completed Not Available [facility] 06/27/2022 17:43:23 04/29/19 15 Date of Last Colonoscopy completed Not Available [facility] 06/27/2022 17:43:23 Orthopedic Surgery completed Not Available [facility] 06/27/2022 17:43:23 completed Not Available [facility] 06/27/2022 17:43:23 Imaging Results Imaging Date Name Status LastModified by Organiz ation Details LastModified Time 11/12/2022 MAMMO, screening, digital, bilateral completed [email or web address] [facility] [address], [place], [address], 04/30/2023 13:42:22 11/12/2022 MAMMO, screening, digital, bilateral completed [email or web address] [facility] [address], [place], [address], 04/30/2023 13:42:22 Procedure Notes None recorded. Medical Equipment None Reported. Allergies Allergen ID Allergen Name Allergen Category Reaction Reaction Severity Criticality Documentation Date Start Date Code Code System Note Provider Name and Address Organization Details Recorded Time 13592 Product containin g penicilli n (product) medicatio n Not available Not available Not available 06/27/2022 57938 8001 SNOMED Not Available [facility] 17:46:17 Medications Name Sig Start Date Stop Date Status Note LastModified by Organization Details LastModified Time multivitami n tablet Take 1 tablet every day by oral route. 12/25 completed Not Available Not Available Not Available amoxicillin 500 mg capsule TAKE 1 CAPSULE BY MOUTH EVERY 12 HOURS active Not Available Not Available No t Available Mirena 21 mcg/24 hr (up to 8 years) 52 mg intrauterin e device Take by intrauter ine route. 07/02 completed Not Available Not Available Not Available doxycycline hyclate 100 mg capsule active Not Available Not Available N ot Available azithromyci n 250 mg tablet TAKE 2 TABLETS BY MOUTH FOR 1 DAY THEN TAKE 1 TABLET BY MOUTH DAILY FOR 4 DAYS 05/15 completed Not Available Not Available Not Available hydrocodone 5 mg-acetamin ophen 325 mg tablet TAKE 1 TABLET BY MOUTH EVERY 6 HOURS NEEDED FOR PAIN 08/30 completed Not Available Not Available Not Available phenazopyri dine 200 mg tablet TK 1 T PO TID PRF BLADDER SPASMS FOR UP TO 2 DAYS 10/07 completed Not Available Not Available Not Available lisinopril 20 mg tablet TAKE 1 TABLET DAILY active Not Available Not Available No t Available prednisone 20 mg tablet TAKE 2 TABLETS BY MOUTH EVERY DAY FOR 5 DAYS active Not Available Not Available No t Available valacyclovi r 500 mg tablet TAKE 1 TABLET BY MOUTH TWICE DAILY FOR 3 DAYS WITH EACH OUTBREAK active Not Available Not Available No t Available ciprofloxac in 500 mg tablet TK 1 T PO Q 12 H active Not Available Not Available No t Available methocarbam ol 750 mg tablet Take 1 tablet 3 times a day by oral route as needed. active Not Available Not Available No t Available meclizine 25 mg tablet 05/17 completed Not Available Not Available Not Available lisinopril 10 mg tablet TAKE 1 TABLET DAILY 08/18 completed Not Available Not Available Not Available prednisone 50 mg tablet Take 1 tablet every day by oral route for 5 days. 08/29 completed Not Available Not Available Not Available fluoxetine 10 mg capsule TAKE 1 CAPSULE BY MOUTH EVERY DAY active Not Available Not Available No t Available codeine 10 mg-guaifene sin 100 mg/5 mL oral liquid TAKE 10 ML BY MOUTH EVERY 4 TO 6 HOURS NEEDED 06/11 completed Not Available Not Available Not Available pravastatin 20 mg tablet TAKE 1 TABLET BY MOUTH EVERY EVENING 08/30 completed Not Available Not Available Not Available ergocalcife rol (vitamin D2) 1,250 mcg (50,000 unit) capsule TAKE 1 CAPSULE BY MOUTH 2 TIMES A MONTH 10/10 completed Not Available Not Available Not Available methylpredn isolone 4 mg tablets in a dose pack FOLLOW PACKAGE DIRECTION S 05/15 completed Not Available Not Available Not Available cefdinir 300 mg capsule TAKE 1 CAPSULE BY MOUTH EVERY 12 HOURS active Not Available Not Available No t Available fluoxetine 20 mg capsule TAKE ONE CAPSULE BY MOUTH EVERY DAY 08/30 completed Not Available Not Available Not Available phentermine 37.5 mg capsule TAKE 1 CAPSULE BY MOUTH EVERY DAY 2022 active Not Available Not Available Not Avai lable rosuvastati n 10 mg tablet 1 tablet by mouth daily active Not Available Not Available No t Available nitrofurant oin monohydrate /macrocryst als 100 mg capsule TAKE 1 CAPSULE BY MOUTH EVERY 12 HOURS 05/15 completed Not Available Not Available Not Available Zyrtec takes daily 2015 active Not Available Not Available Not Avai lable Wharton 3 470 mg daily, otc 2020 active Not Available Not Available Not Avai lable Wharton 3 Fish Oil takes one daily 12/25 completed Not Available Not Available Not Available Mucinex takes as needed. 11/13 completed Not Available Not Available Not Available ProAir HFA 90 mcg/actuati on aerosol inhaler Inhale by inhalatio n route as needed for 16 days. active Not Available Not Available No t Available diclofenac 1 % topical gel APPLY 2 GRAMS TO RIGHT CALF QID 01/14 completed Not Available Not Available Not Available Calcium Magnesium takes daily, otc 10/10 completed Not Available Not Available Not Available Slynd 4 mg (28) tablet TAKE 1 TABLET BY MOUTH EVERY DAY active Not Available Not Available No t Available Probiotic (with Vitamin D3) otc, takes daily 2020 active Not Available Not Available Not Avai lable BinaxNOW COVID-19 Ag Self Test kit TEST DIRECTED TODAY 05/15 completed Not Available Not Available Not Available Vitals Date Recorded Body mass index (BMI) Body height Oxygen saturation Oxygen saturation in Arterial blood by Pulse oximetry Heart rate Body temperature Body weight Systolic blood pressure Diastolic blood pressure Provider Name and Address Organization Details Last Updated DateTime 3 34.1 kg/m2 165.1 cm 99 % 99 % 67 /min 97.8 [degF] 34316.4 4 g 124 mm[Hg] 80 mm[Hg] Not Available [facility] 3 17:44:21 Date Recorded Body mass index (BMI) Body height Oxygen saturation Oxygen saturation in Arterial blood by Pulse oximetry Heart rate Body temperature Body weight Systolic blood pressure Diastolic blood pressure Provider Name and Address Organization Details Last Updated DateTime 3 33.9 kg/m2 165.1 cm 99 % 99 % 70 /min 96.8 [degF] 82614.8 4 g 124 mm[Hg] 70 mm[Hg] Not Available [facility] 3 17:44:21 Date Recorded Body height Body temperature Body mass index (BMI) Body weight Respiratory rate Oxygen saturation Oxygen saturation in Arterial blood by Pulse oximetry Heart rate Systolic blood pressure Diastolic blood pressure Provider Name and Address Organization Details Last Updated DateTime 3 165.1 cm 97.8 [degF] 33.4 kg/m2 30434.0 7 g 16 /min 98 % 98 % 93 /min 122 mm[Hg] 80 mm[Hg] BOLIVAR Mclaughlin [place] [employer] [facility] [email or web address] 3 09:22:22 Date Recorded Body height Body temperature Body mass index (BMI) Body weight Respiratory rate Oxygen saturation Oxygen saturation in Arterial blood by Pulse oximetry Heart rate Systolic blood pressure Diastolic blood pressure Provider Name and Address Organization Details Last Updated DateTime 3 165.1 cm 97.2 [degF] 32.4 kg/m2 67144.5 1 g 16 /min 98 % 98 % 84 /min 128 mm[Hg] 80 mm[Hg] BOLIVAR Mclaughlin [employer] [facility] [employer] [facility] 3 14:45:51 Date Recorded Systolic blood pressure Diastolic blood pressure Provider Name and Address Organization Details Last Updated DateTime 10/10/2022 118 mm[Hg] 80 mm[Hg] AKIKO Lovell [address] [place] [address], [address], [place] [employer] [facility] [email or web address] 10/10/2022 15:04:50 Date Recorded Body height Body mass index (BMI) Body weight Body temperature Heart rate Oxygen saturation Oxygen saturation in Arterial blood by Pulse oximetry Systolic blood pressure Diastolic blood pressure Provider Name and Address Organization Details Last Updated DateTime 165.1 cm 32 kg/m2 12243.7 4 g 98.3 [degF] 86 /min 99 % 99 % 130 mm[Hg] 86 mm[Hg] Maria Victoria Ward RN [facility] [employer] [facility] 14:03:11 Social History Question Answer Notes LastModified by Organizat ion Details LastModified Time Tobacco Smoking Status Former Smoker Maria Victoria Ward RN null, [facility] [employer] [facility] 11/12/2022 13:58:15 What Is Your Level Of Alcohol Consumption? Occasional [id number] Information not available 06/27/2022 What Is Your Level Of Caffeine Consumption? Heavy [id number] Information not available 06/27/2022 How Much Tobacco Do You Chew? None [id number] Information not available 06/27/2022 In The 14 Days Before Symptom Onset, Have You Had Close Contact With A Laboratory-confir med COVID-19 While That Case Was Ill? No [email or web address] Information not available 11/12/2022 In The 14 Days Before Symptom Onset, Have You Had Close Contact With A Person Who Is Under Investigation For COVID-19 While That Person Was Ill? No Information not available 11/12/2022 Are You Currently Employed? Yes [email or web address] Information not available 11/12/2022 What Type Of Diet Are You Following? REGULAR [id number] Information not available 06/27/2022 Which Illicit Or Recreational Drugs Have You Used? None [email or web address] Information not available 11/12/2022 Do You Or Have You Ever Used E-cigarettes Or Vape? 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 No [email or web address] Information no t available 11/12/2022 Do You Use Insect Repellent Routinely? No [email or web address] Information not available 11/12/2022 What Was The Date Of Your Most Recent Tobacco Screening? 08/18/2020 [email or web address] Information not available 11/12/2022 What Is Your Relationship Status? [id number] Information not available 06/27/2022 Do You Use Your Seat Belt Or Car Seat Routinely? Yes [email or web address] Information not available 11/12/2022 Do You Have Smoke And Carbon Monoxide Detectors In Your Home? Yes [email or web address] Information not available 11/12/2022 At What Age Did You Start Smoking Tobacco? 17 [email or web address] Information not available 11/12/2022 Do You Or Have You Ever Used Smokeless Tobacco? Never Used Smokeless Tobacco [id number] Information not available 06/27/2022 How Much Tobacco Do You Smoke? 1 PPW [id number] Information not available 06/27/2022 Do You Use Any Illicit Or Recreational Drugs? No [email or web address] Information not available 11/12/2022 Do You Use Sunscreen Routinely? Yes Information not available 11/12/2022 Have You Recently Traveled Abroad? No [email or web address] Information not available 11/12/2022 Do You Have Any Dietary Restrictions? No [email or web address] Information not available 11/12/2022 Do You Or Have You Ever Used Any Other Forms Of Tobacco Or Nicotine? No [email or web address] Information not available 11/12/2022 Sex: Unknown Functional Status Question Answer Note LastModified by Organizat ion Details LastModified Time What is your exercise level? Occasional [id number] Information not available 06/27/2022 Mental Status None recorded. Family History Relationship Description Onset Age of this Age Resolved Age Notes LastModified by Organization Details LastModified Time Mother Hypertensive disorder [id number] Not available 06/27/2022 17:43:25 Medical History Condition Response HEADACHES/MIGRAINES Y DIZZINESS Y HYPERTENSION Y HIGH CHOLESTEROL / HYPERLIPIDEMIA Y BRONCHITIS Y BACK / NECK PROBLEMS Y Gynecological History Statement/Question Response Date of Last Mammogram 05/30/2018 Date of Last Colonoscopy 04/29/2014 Date of LMP 12/29/2018 Most Recent Bone Density Sexually Active? Y Date of Last Pap 05/30/2019 Current Control Method Condoms Obstetrics History GPAL:G 2 P 0 0 0 1 Type Value Living 1 Total 2 Immunizations Vaccine Type Date Status Note Provider Nam e and Address Organization Details Recorded Time influenza, unspecified formulation 5 completed Not Available [facility] 06/27/2022 17:46:15 influenza, unspecified formulation 6 completed Not Available [facility] 06/27/2022 17:46:16 Past Encounters Encounter ID Performer Location Encounter Start Date Encounter Closed Date Diagnosis/Indication Diagnosis SNOMED-CT Code Diagnosis ICD10 Code Diagnosis Note [id number] AKIKO Lovell [facility] [place] [address] [place] [address] 08/18/2020 00:00:00 08/24/2020 13:35:08 [id number] Rogerio Olea MD [facility] [place] [address] [place] [address] 08/18/2021 00:00:00 08/18/2021 09:37:08 [id number] AKIKO Lovell [facility] [place] [address], [address] [place] [address] [place] [address] 05/15/2022 00:00:00 05/29/2022 20:47:33 [id number] AKIKO Lovell [facility] [place] [address] [facility] [place] [address] 06/12/2022 00:00:00 06/26/2022 19:40:13 [id number] AKIKO Lovell [facility] [place] [address], [address] [place] [address] [place] [address] 08/30/2022 09:16:57 08/30/2022 09:38:33 Adult health examination 344773503 Z00.01 annual wellness exam completed Benign hypertension 1072 5009 I10 stable on lisinopril 20mg daily Hyperlipidemia 04236954 E78.5 stable on crestor 10mg daily. due for fasting lipids. Diabetes m ellitus screening 066002815 Z13.1 screening diabetes due. Long-term drug therapy [id number] Z79.899 routine CMP, CBC, TFTs Vitamin D deficiency 347 18758 E55.9 screening vit D lab is due and requested. on supplement . [id number] AKIKO Lovell [facility] [place] [address] [facility] [place] [address] 10/10/2022 14:37:55 10/10/2022 15:07:45 Benign hypertension 40617401 I10 stable on lisinopril 20mg daily . blood pressure is normal today without concern. Body mass index 30+ - obesity 644405899 Z68.32 refill phentermin e and will take over management [id number] AKIKO Lovell [facility] [place] [address] [place] [address] 11/12/2022 13:57:16 11/12/2022 14:20:01 Benign hypertension 40627325 I10 stable on lisinopril 20mg daily . blood pressure is normal today without concern. Body mass index 30+ - obesity 419973142 Z68.32 refill phentermin e and will take over management Screening mammography 24 661523 Z12.31 mammogram is due Health Concerns Section Related Observation LastModified by Organization Detai ls LastModified Time None Recorded Concern Status LastModified by Organization Details LastModified Time None Recorded Advance Directives Directive None Recorded Payers Encounter Date Sequence Insurance Name Policy Number Policy Ibrahim Covered Member ID Ibrahim Member ID Guarantor Name 08/30/2022 1 [place] [id number] Eura K Menezes [id number] Eura K Menezes 08/30/[address] [facility] [id number] [facility] [id number] Eura K Menezes 10/10/2022 1 [place] [id number] Eura K Menezes [id number] Eura K Menezes 10/10/[address] [facility] [id number] [facility] [id number] Eura K Menezes 11/12/2022 1 [place] [id number] Eura K Menezes [id number] Eura K Menezes 11/12/[address] [facility] [id number] [facility] [id number] Eura K Menezes Notes Date Note Type Note Provider Name and Address Organization Details Recorded Time 3 text/html EaracheReported bypatient.Location:left Quality:aching; sharp Severity:same Duration:intermittent Context:no sick contacts; no recent swimming/water in ear; no exposure to second hand smoke; no head trauma; not grinding teeth; no recent air travel; ruptured ear drum in 03/20 Modifying Factors:does not hurt to lie on, or pull on ear; nothing makes it worse Associated Symptoms:hearing loss;popping noise in the ears Not Available [employer] 05/29/2022 20:47:33 3 text/html EaracheReported bypatient.Location:left Quality:aching; sharp Severity:same; moderate Duration:intermittent Context:no sick contacts; no recent swimming/water in ear; no exposure to second hand smoke; no head trauma; not grinding teeth; no recent air travel; ruptured ear drum in 03/20 Modifying Factors:hurts to lie on, or pull on ear Associated Symptoms:hearing loss;discharge from the ears;popping noise in the ears;ears feel full;itching (pruritus) Not Available [employer] 06/26/2022 19:40:13 3 text/html HyperlipidemiaReported bypatient.Duration:chronic Control:usually well controlled Current Therapy:currently taking: (rosuvastatin 10mg) Compliance:compliant; compliant with diet; exercises Complications:no coronary artery disease; no peripheral artery disease; no cardiovascular disease Risk Factors:hypertensionHypert ensionReported bypatient.Duration:has noted for years Onset/Timing:better Alleviating Factors:medication Associated Symptoms:no shortness of breath; no fatigue; no palpitations; no decline in exercise capacity; no snoring Wellness AKIKO Lovell [address], [place], [address], [employer] 09/26/2022 00:12:54 3 text/html Generic HPI TemplateReported bypatient.Notes:Pt states she was at the weight clinic and her BP was elevated so they wouldn't fill her weight loss med. She wants to know if you will increase her BP med and sign off that she's ok to continue med. AKIKO Lovell [address], [place], [address], [facility] 10/26/2022 22:11:40 3 text/html Elevated Blood PressureReported bypatient.Onset/Timing:bet ter Alleviating Factors:medication Associated Symptoms:no shortness of breath; no fatigue; no palpitations; no decline in exercise capacity; no snoring pt here for bp f/u AKIKO Lovell [address] [facility], [facility] [address], [place], [address], [facility] 11/26/2022 00:39:00 OBGyn Episode No OBEpisode recorded.
--- OUTSIDE RECORDS SUMMARY | 2024-09-01 08:44 | XMS_ITS | Clinical Summary ---
Author Organization [facility] Address [address] [place] [address] Care Team Providers Care Robotics Systems Engineer Name Role Phone Delphinejanene Ayanna WHARTON Primary Care Pr ovider Allergies Active Allergy Reactions Criticality Noted Date Comments Penicillins Unknown 02/05/2018 Pt has reaction as a young child Medications rosuvastatin (CRESTOR) 10 mg tablet 0 01/27/2018 Active ergocalciferol (VITAMIN D) 50,000 unit capsule TK ONE C PO 3 TIMES A MONTH 3 01/27/2018 Active lisinopril (PRINIVIL,ZESTRI L) 10 mg tablet Take 10 mg by mouth daily. Active cetirizine (ZyrTEC) 10 mg tablet Take 10 mg by mouth daily. Active Active Problems No known active problems Surgical History Surgery Date Site/Laterality Comments TONSILLECTOMY 04/29/1979 - 04/28/1980 SECTION 04/29/2001 - 04/28/2002 Medical History Medical History Date Comments Hypertension Environmental allergies Elevated cholesterol Vitamin D deficiency 01/2018 Family History Medical History Relation Name Comments Cancer Father Lung cancer Father Prostate cancer Father Breast cancer Maternal Grandmother Cancer Maternal Grandmother Breast cancer Mother's Sister Cancer Mother's Sister Relation Name Status Comments Father Maternal Grandmother Mother Alive Mother's Sister Social History Tobacco Use Types Packs/Day Years Used Date Smoking Tobacco: Former Cigarettes Q uit: 03/02/2011 Smokeless Tobacco: Never Alcohol Use Standard Drinks/Week Comments Yes 0 (1 standard drink = 0.6 oz pur e alcohol) Personal Safety Answer Date Recorded Getting School Help Needed Not on file 07/12 Comments Unknown Sex and Gender Information Value Date Recorded Sex Assigned at Not on file Legal Sex Female 6:17 PM UPHOLSTERY TECH Gender Identity Not on file Sexual Orientation Not on file Obstetrics History Last Filed Vital Signs Vital Sign Reading Time Taken Comments Blood Pressure 154/96 04/26/2019 11:32 AM UPHOLSTERY TECH Pulse 92 04/26/2019 11:32 AM UPHOLSTERY TECH Temperature 36.8 C (98.3 F) 04/26/2019 11:32 AM UPHOLSTERY TECH Respiratory Rate 16 04/26/2019 11:32 AM UPHOLSTERY TECH Oxygen Saturation 97% 04/26/2019 11:32 AM UPHOLSTERY TECH Inhaled Oxygen Concentration - - Weight 83.5 kg (184 lb) 04/26/2019 11:32 AM UPHOLSTERY TECH Height 166.4 cm (5' 5.5 ) 04/26/2019 11:32 AM CS T Body Mass Index 30.15 04/26/2019 11:32 AM UPHOLSTERY TECH Plan of Treatment Not on [place] [address] [facility] ACCESS CHOICE [facility] Care Teams Robotics Systems Engineer Relationship Specialty Start Date End Date Ayanna Ford PA PCP - General Physician Legal Stenographer 01/30/18
--- OUTSIDE RECORDS SUMMARY | 2024-09-01 08:44 | XMS_ITS | Referral Summary ---
Author Organization [facility] Address [address] [place] [address] Care Team Providers Care Plastic Sheets Supervisor Name Role Phone Delphinejanene Ayanna WHARTON Primary [...] Active Active Problems No known active problems Social History Tobacco Use Types Packs/Day Years [...] on file Legal Sex Female 6:17 PM MEAT PACKER Gender Identity Not on file Sexual Orientation Not on file Last Filed Vital Signs Vital Sign Reading Time Taken Comments Blood Pressure 154/96 04/26/2019 11:32 AM MEAT PACKER Pulse 92 04/26/2019 11:32 AM MEAT PACKER Temperature 36.8 C (98.3 F) 04/26/2019 11:32 AM MEAT PACKER Respiratory Rate 16 04/26/2019 11:32 AM MEAT PACKER Oxygen Saturation 97% 04/26/2019 11:32 AM MEAT PACKER Inhaled Oxygen Concentration - - Weight 83.5 kg (184 lb) 04/26/2019 11:32 AM MEAT PACKER Height 166.4 cm (5' 5.5 ) 04/26/2019 11:32 AM CS T Body Mass Index 30.15 04/26/2019 11:32 AM MEAT PACKER Plan of Treatment Not on file Insurance [facility] ACCESS CHOICE Member Subscriber Plan / Payer ( fective 2017-Present) Name:Stanton Menezes Relation to Subscriber:Self Name:Stanton Menezes Payer ID:[id number] (NAIC) Type:[facility] Address: [id number] [place] [id number] [facility] Care Teams Plastic Sheets Supervisor Relationship Specialty Start Date End Date Ayanna Ford PA PCP - General Physician Protection Engineer 10/4/18
--- OUTSIDE RECORDS SUMMARY | 2024-09-01 08:44 | XMS_ITS | Data Portability ---
[facility] Address [address] [place] [address] Care Team Providers Care Word Processor Name Role Phone ERNESTO REAL Primary Care Provider Assessment No assessment recorded. Plan of Treatment Reminders Order Date Submit Date Provider Last Modified By Organization Details Last Modified Time Details Appointments ANY 15 2024 08:15A M AKIKO Lovell Not available Not available Not available Lab urinalysi s, dipstick 2023 [email or web address] In-Office Order, Internal Use Only DO Not Attach Compendium DO Not Attach Compendium, Do Not Delete/merge, [id number] 03/04/2024 15:31:23 TSH + free T4, serum 2023 [employer] [facility], [address], [place], [address], 04/08/2024 11:42:13 T3, free, serum or plasma 2023 [employer] [facility], [address], [place], [address], 04/08/2024 11:42:13 Referral None recorded. Procedures nerve conductio n study/EMG , lower extremity (PROC) 2023 [facility] (Cardiology & Emg), [address], [place], [address], 01/10/2024 11:44:09 Surgeries None recorded. Imaging CT, abdomen + pelvis, w/o contrast 2023 024 [email or web address] [facility], [address], [place], [address], 06/10/2024 13:20:19 CT, abdomen + pelvis, w/o contrast 2023 024 [email or web address] [facility], [address], [place], [address], 05/08/2024 16:42:54 XR, lumbosacr al spine, 2 or 3 view 2023 024 [facility] (Imaging), [address], [place], [address], 12/06/2023 14:50:33 Medication Orders Macrobid 100 mg capsule 2023 025 [place] [id number], [address], [place], [place], [id number], 06/09/2024 09:14:01 lisinopri l 30 mg tablet 2023 [facility]24 [id number], [address], [place], [place], [id number], 04/20/2024 11:24:47 Macrobid 100 mg capsule 2023 024 [email or web address] [facility] #[id number], [address], [place], [place], [id number], 06/09/2024 09:13:51 Wegovy 0.25 mg/0.5 mL subcutane ous pen injector [address] [facility] #[id number], [address], [place], [place], [id number], 06/09/2024 09:14:09 hydrochlo rothiazid e 12.5 mg tablet 2023 024 [email or web address] #[id number], [address] , [place], [place], [id number], 06/09/2024 09:06:51 Patient TargetsNo targets recorded. Patient Instructions Encounter Date Encounter Id Patient Instructions Last Modified By Organization Details Last Modified Time 10/21/2023 [id number] A healthy lifestyle: care instructions Not available 10/21/2023 11:32:18 03/04/2024 [id number] A healthy lifestyle: care instructions Not available 03/04/2024 15:20:47 04/20/2024 [id number] A healthy lifestyle: care instructions Not available 04/20/2024 11:24:41 Reason for Referral None Reported. Results Created Date Observation Date Name Description Value Unit Range Abnormal Flag Note LastModifiedBy Organization Detail LastModifiedTime 03/04/2003/04/2024 urina lysis , dipst ick Leukocytes Trace Not Available In-Offi ce Order Internal Use Only DO Not Attach Compendium DO Not Attach Compendium, Do Not Delete/merge, [id number] 03/04/2024 15:30:39 03/04/2003/04/2024 urina lysis , dipst ick Nitrite negati ve Not Available In-Office Order Internal Use Only DO Not Attach Compendium DO Not Attach Compendium, Do Not Delete/merge, [id number] 03/04/2024 15:30:39 03/04/2003/04/2024 urina lysis , dipst ick Urobilinogen .2 Not Available In-Of fice Order Internal Use Only DO Not Attach Compendium DO Not Attach Compendium, Do Not Delete/merge, [id number] 03/04/2024 15:30:39 03/04/2003/04/2024 urina lysis , dipst ick Protein 30 Not Available In-Office Order Internal Use Only DO Not Attach Compendium DO Not Attach Compendium, Do Not Delete/merge, [id number] 03/04/2024 15:30:39 03/04/20 24 03/04/2024 urina lysis , dipst ick pH 8.5 Not Available In-Office Order Internal Use Only DO Not Attach Compendium DO Not Attach Compendium, Do Not Delete/merge, 03/04/2024 15:30:39 03/04/20 24 03/04/2024 urina lysis , dipst ick Blood Non-He molyze d: Trace Not Available In-Office Order Internal Use Only DO Not Attach Compendium DO Not Attach Compendium, Do Not Delete/merge, [id number] 03/04/2024 15:30:39 03/04/20 24 03/04/2024 urina lysis , dipst ick Specific [place] 1.015 Not Available In-Off ice Order Internal Use Only DO Not Attach Compendium DO Not Attach Compendium, Do Not Delete/merge, 03/04/2024 15:30:39 03/04/20 24 03/04/2024 urina lysis , dipst ick Ketone Negati ve Not Available In-Office Order Internal Use Only DO Not Attach Compendium DO Not Attach Compendium, Do Not Delete/merge, [id number] 03/04/2024 15:30:39 03/04/20 24 03/04/2024 urina lysis , dipst ick Bilirubin Negati ve Not Available In-Office Order Internal Use Only DO Not Attach Compendium DO Not Attach Compendium, Do Not Delete/merge, 03/04/2024 15:30:39 03/04/20 24 03/04/2024 urina lysis , dipst ick Glucose Negati ve Not Available In-Office Order Internal Use Only DO Not Attach Compendium DO Not Attach Compendium, Do Not Delete/merge, [id number] 03/04/2024 15:30:39 03/04/20 24 03/04/2024 urina lysis , dipst ick Appearance Clear Not Available In-Offi ce Order Internal Use Only DO Not Attach Compendium DO Not Attach Compendium, Do Not Delete/merge, 03/04/2024 15:30:39 03/04/20 24 03/04/2024 urina lysis , dipst ick Color Yellow Not Available In-Office Order Internal Use Only DO Not Attach Compendium DO Not Attach Compendium, Do Not Delete/merge, [id number] 03/04/2024 15:30:39 12/06/19 24 12/06/2023 XR, lumbo sacra l spine , 2 or 3 view No observ ation record ed. [facility] [address], [place], [address], 12/09/2023 16:12:34 01/10/20 24 12/31/2023 nerve condu ction study /EMG, lower extre mity (PROC ) No observ ation record ed. [facility] (Cardiology [facility] Em[facility]) [address], [place], [address], 01/14/2024 11:17:24 05/07/19 25 11/12/2022 MAMMO , scree rolando, digit al, bilat eral No observ ation record ed. BARCODE Not Available 2024 19:59:42 07/25/19 25 07/24/2024 MAMMO , scree rolando, digit al, bilat eral No observ ation record ed. [email or web address] [facility] [address], [place], [address], 07/25/2024 20:30:18 08/08/19 25 08/06/2024 US, trans vagin al No observ ation record ed. [email or web address] [facility] [address], [place], [address], 08/18/2024 14:23:23 Result Notes None recorded. Problems Name Problem SNOMED Code Status Onset Date Resolution Date Notes Provider Name and Address Organization Details Recorded Time Body mass index 30+ - obesity 458924842 Active 2023 AKIKO Lovell Attn: Paul dallas,[address] [facility], [place], [address], [facility] 11:18:16 Obesity 726424675 Active 2023 AKIKO Lovell Attn: Accountporsche g,[address] [facility], [place], [address], [facility] - [facility] 4 11:18:17 Hyperlipide maggi 66466197 Active 2023 AKIKO Lovell Attn: Accountporsche g,[address] [facility], [place], [address], [place] - [facility] 4 11:18:55 Benign essential hypertensio n 0681750 Active 2023 AKIKO Lovell Attn: Accountin g,[address] [facility], [place], [address], [facility] - [facility] 4 11:18:56 Hypothyroid ism 09404734 Active 2023 AKIKO Lovell Attn: Paul g,[address] [place], [address], [facility] - [facility] 4 11:18:58 Long-term drug therapy Active 2023 AKIKO Lovell Attn: Accountporsche g,[address] [facility], [place], [address], [facility] - [facility] 4 11:18:59 Positive screening for depression on PHQ-9 (Patient Health Questionnai re 9) 3279524383101 00 Active 2023 AKIKO Lovell Attn: Kulwinderporsche g,[address] [place], [address], [facility] - [facility] 4 16:32:16 Lower urinary tract symptoms 966652009 Active 2023 AKIKO Lovell Attn: Accountporsche g,[address] [place], [address], [facility] - [facility] 4 11:21:24 Problem Notes None recorded. Procedures Surgical History Date Name Laterality Status Provider Name and Address Organization Details Recorded Time 04/29/19 Cholecystectomy completed Swathi Hernandez [place] - [place] 10/21/2023 11:03:07 04/29/19 04 Knee Surgery completed Swathi Hernandez [place] - [facility] 10/21/2023 11:03:00 04/29/19 02 section completed Swathi Hernandez MA [place] - [place] 10/21/2023 11:03:16 04/29/19 02 colonoscopy completed Swathi Hernandez [place] - [facility] 10/21/2023 11:06:52 Imaging Results Imaging Date Name Status LastModified by Organization Details LastModified Time 12/06/2023 XR, lumbosacral spine, 2 or 3 view completed [facility] [address], [place], [address], 12/09/2023 16:12:34 12/31/2023 nerve conduction study/EMG, lower extremity (PROC) completed [facility] (Cardiology [facility] Emg) [address], [place], [address], 01/14/2024 11:17:24 11/12/2022 MAMMO, screening, digital, bilateral completed [facility] Information not available 05/07/2024 19:59:42 07/24/2024 MAMMO, screening, digital, bilateral completed [email or web address] [facility] [address], [place], [address], 07/25/2024 20:30:18 08/06/2024 US, transvaginal completed [email or web address] [facility] [address], [place], [address], 08/18/2024 14:23:23 Procedure Notes None recorded. Medical Equipment None Reported. Allergies Allergen ID Allergen Name Allergen Category Reaction Reaction Severity Criticality Documentation Date Start Date Code Code System Note Provider Name and Address Organization Details Recorded Time 853270 Product containin g penicilli n (product) medicatio n other mild low 10/21/2023 60713 9281 SNOMED Don't remem sade OSMAN Hawkins, [place] - [place] 10:56:22 Medications Name Sig Start Date Stop Date Status Note LastModified by Organization Details LastModified Time amoxicill in 500 mg capsule TAKE 1 CAPSULE BY MOUTH EVERY 12 HOURS 10/20 completed Patient stated she is not taking this medicati on. Not Available Not Available Not Available aspirin 325 mg tablet Take 1 tablet every day by oral route. active otc, before bed Not Available Not Available Not Available lisinopri l 20 mg tablet Take 1 tablet every day by oral route. 04/20 completed Not Available Not Available Not Available prednison e 20 mg tablet TAKE 2 TABLETS BY MOUTH EVERY DAY FOR 5 DAYS 10/20 completed Patient stated she is not taking this medicati on. Not Available Not Available Not Available valacyclo vir 500 mg tablet Take by oral route for 15 days. active Not Available Not Available No t Available levothyro xine 50 mcg tablet Take 1 tablet every day by oral route for 90 days. active Not Available Not Available No t Available fluoxetin e 10 mg capsule TAKE 1 CAPSULE BY MOUTH EVERY DAY 10/20 completed Not Available Not Available Not Available lisinopri l 30 mg tablet Take 1 tablet every day by oral route. active Not Available Not Available No t Available cefdinir 300 mg capsule TAKE 1 CAPSULE BY MOUTH EVERY 12 HOURS 10/20 completed Patient stated she is not taking this medicati on. Not Available Not Available Not Available phentermi ne 37.5 mg capsule TAKE 1 CAPSULE BY MOUTH EVERY DAY 10/20 completed Not Available Not Available Not Available rosuvasta tin 10 mg tablet Take 1 tablet every day by oral route for 90 days. active Not Available Not Available No t Available nitrofura ntoin monohydra te/macroc rystals 100 mg capsule Take 1 capsule every 12 hours by oral route. 06/09 completed Not Available Not Available Not Available magnesium active otc Not Available Not Arlene ilable Not Available B Complex active otc Not Available Not Arlene ilable Not Available zinc active otc Not Available Not Availa ble Not Available fiber active otc Not Available Not Availa ble Not Available Vitamin D3 active otc Not Available Not Available Not Available [employer] 3 Fish Oil active otc Not Available Not Available Not Available Desiccate d Liver-Vit salcedo B12 active otc Not Available Not Available Not Available hydrochlo rothiazid e 12.5 mg tablet Take 1 tablet every day by oral route for 90 days. active Not Available Not Available No t Available Slynd 4 mg (28) tablet TAKE 1 TABLET BY MOUTH EVERY DAY 10/20 completed Patient stated she is not taking this medicati on. Not Available Not Available Not Available Wegovy 0.25 mg/0.5 mL subcutane ous pen injector Inject 0.25 mg every week by subcutan eous route. 06/09 completed Not Available Not Available Not Available Vitals Date Recorded Body weight Body mass index (BMI) Body height Heart rate Oxygen saturation Oxygen saturation in Arterial blood by Pulse oximetry Systolic blood pressure Diastolic blood pressure Provider Name and Address Organization Details Last Updated DateTime 4 83131.9 2 g 35.7 kg/m2 165.1 cm 71 /min 97 % 97 % 132 mm[Hg] 74 mm[Hg] Swathi Hernandez MA [facility] 4 11:09:24 Date Recorded Respiratory rate Systolic blood pressure Diastolic blood pressure Provider Name and Address Organization Details Last Updated DateTime 10/21/2023 18 /min 140 mm[Hg] 90 mm[Hg] AKIKO Lovell Attn: Accounting, [address] [place], [address], [facility] 10/21/2023 11:30:14 Date Recorded Body height Body mass index (BMI) Body weight Respiratory rate Oxygen saturation Oxygen saturation in Arterial blood by Pulse oximetry Heart rate Systolic blood pressure Diastolic blood pressure Provider Name and Address Organization Details Last Updated DateTime 4 165.1 cm 33.9 kg/m2 51299.8 4 g 18 /min 98 % 98 % 72 /min 138 mm[Hg] 88 mm[Hg] Jaylin Moses MA [facility] 4 09:40:51 Date Recorded Systolic blood pressure Diastolic blood pressure Provider Name and Address Organization Details Last Updated DateTime 11/19/2023 140 mm[Hg] 90 mm[Hg] AKIKO Lovell Attn: Accounting, [place], [address], [facility] 11/19/2023 09:57:15 Date Recorded Body height Body mass index (BMI) Body weight Respiratory rate Oxygen saturation Oxygen saturation in Arterial blood by Pulse oximetry Heart rate Systolic blood pressure Diastolic blood pressure Provider Name and Address Organization Details Last Updated DateTime 4 165.1 cm 34.4 kg/m2 67870.6 2 g 18 /min 97 % 97 % 84 /min 142 mm[Hg] 80 mm[Hg] Jaylin Moses MA [facility] 4 15:01:13 Date Recorded Systolic blood pressure Diastolic blood pressure Provider Name and Address Organization Details Last Updated DateTime 03/04/2024 150 mm[Hg] 90 mm[Hg] AKIKO Lovell Attn: Accounting,[address] [place], [address], [facility] 03/04/2024 15:15:27 Date Recorded Body height Body mass index (BMI) Body weight Oxygen saturation Oxygen saturation in Arterial blood by Pulse oximetry Heart rate Systolic blood pressure Diastolic blood pressure Provider Name and Address Organization Details Last Updated DateTime 4 165.1 cm 33.6 kg/m2 65279.6 6 g 98 % 98 % 84 /min 146 mm[Hg] 82 mm[Hg] Jaylin Moses MA [facility] 4 11:09:25 Date Recorded Systolic blood pressure Diastolic blood pressure Provider Name and Address Organization Details Last Updated DateTime 04/20/2024 138 mm[Hg] 90 mm[Hg] AKIKO Lovell Attn: Accounting,[address] [place], [address], [facility] 04/20/2024 11:19:33 Date Recorded Body height Body mass index (BMI) Body weight Oxygen saturation Oxygen saturation in Arterial blood by Pulse oximetry Heart rate Systolic blood pressure Diastolic blood pressure Provider Name and Address Organization Details Last Updated DateTime 5 165.1 cm 34.1 kg/m2 59643.0 8 g 99 % 99 % 68 /min 130 mm[Hg] 82 mm[Hg] Jaylin Moses MA [facility] 5 09:09:24 Date Recorded Respiratory rate Systolic blood pressure Diastolic blood pressure Provider Name and Address Organization Details Last Updated DateTime 06/09/2024 16 /min 122 mm[Hg] 80 mm[Hg] AKIKO Lovell Attn: [address]ing[address] , [place], [address], [place] - [place] 06/09/2024 09:15:35 Social History Question Answer Notes LastModified by Organizat ion Details LastModified Time Tobacco Smoking Status Former Smoker Swathi BirchOSMAN singh [facility], [place] - [place] 10/21/2023 11:00:28 Do You Have An Advance Directive? No Information not available 10/21/2023 What Is Your Level Of Alcohol Consumption? Moderate Information not available 10/21/2023 How Many Years Have You Consumed Alcohol? 30 Information not available 10/21/2023 Are You Blind Or Do You Have Difficulty Seeing? No Information not available 10/21/2023 What Is Your Level Of Caffeine Consumption? Heavy Coffee Information not available 10/21/2023 In The 14 Days Before Symptom Onset, Have You Had Close Contact With A Laboratory-confi rmed COVID-19 While That Case Was Ill? No Information not available 10/18/2023 In The 14 Days Before Symptom Onset, Have You Had Close Contact With A Person Who Is Under Investigation For COVID-19 While That Person Was Ill? No Information not available 10/18/2023 Have You Been To An Area Known To Be High Risk For COVID-19? No Information not available 10/18/2023 Are You Currently Employed? Yes Information not available 10/21/2023 Are You Deaf Or Do You Have Serious Difficulty Hearing? No Information not available 10/21/2023 What Type Of Diet Are You Following? REGULAR Information not available 10/21/2023 What Is The Highest Grade Or Level Of School You Have Completed Or The Highest Degree You Have Received? 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 No Information not available 10/21/2023 What Was The Date Of Your Most Recent Tobacco Screening? 06/09/2024 Information not available 06/09/2024 What Is Your Current Pack Years? 10packyears Information not available 10/21/2023 What Is Your Relationship Status? Information not available 10/21/2023 Do You Use Your Seat Belt Or Car Seat Routinely? Yes Information not available 10/18/2023 Do You Have Smoke And Carbon Monoxide Detectors In Your Home? Yes Information not available 10/18/2023 How Much Tobacco Do You Smoke? 1 PPW Information not available 10/21/2023 Do You Feel Stressed (tense, Restless, Nervous, Or Anxious, Or Unable To Sleep At Night)? [id number] Information not available 10/21/2023 Do You Use Any Illicit Or Recreational Drugs? No Information not available 10/21/2023 Do You Use Sunscreen Routinely? Yes Information not available 10/21/2023 Has Tobacco Cessation Counseling Been Provided? Yes Information not available 10/18/2023 On What Date Was Tobacco Cessation Counseling Provided? 06/09/2024 Information not available 06/09/2024 How Many Years Have You Smoked Tobacco? 25 Information not available 10/21/2023 Do You Or Have You Ever Used Any Other Forms Of Tobacco Or Nicotine? No Information not available 10/21/2023 Sex: Female Functional Status Question Answer Note LastModified by Organization D etails LastModified Time Are you able to care for yourself? Yes Information not available 10/21/2023 What is your exercise level? Moderate Information not available 10/21/2023 Mental Status None recorded. Family History Relationship Description Onset Age of this Age Resolved Age Notes LastModified by Organization Details LastModified Time Father Depressive disorder mebyma Not available 2023 11:05:49 Father Hypertensive disorder mebyma Not available 2023 11:06:01 Father Hypercholest erolemia mebyma Not available 2023 11:06:09 Father Malignant neoplasm of prostate mebyma Not available 2023 11:06:17 Mother Hypertensive disorder mebyma Not available 2023 11:06:01 Mother Hypercholest erolemia mebyma Not available 2023 11:06:09 Brother Hypertensive disorder mebyma Not available 2023 11:06:01 Medical History Condition Response High Blood Pressure Y Depression Y Muscle, Joint, or Bone Problems Y High Cholesterol Y Thyroid Problems Y Allergies Y Gynecological History Statement/Question Response Menses Monthly N Date of LMP Obstetrics History GPAL:G 1 P 1 0 0 1 Type Value Full Term 1 Living 1 Total 1 Immunizations Vaccine Type Date Status Note Provider Nam e and Address Organization Details Recorded Time COVID-19, mRNA, LNP-S, PF, 100 mcg/0.5mL dose or 50 mcg/0.25mL dose 04/30/2021 completed OSMAN [place], [place] [facility] 11/18/2023 13:27:35 COVID-19, mRNA, LNP-S, PF, 30 mcg/0.3 mL dose 08/12/2020 [place] O[place]AN [place] [facility] 11/18/2023 13:27:35 COVID-19, mRNA, LNP-S, PF, 30 mcg/0.3 mL dose 09/02/2020 [place] OSMAN [place] [facility] 11/18/2023 13:27:35 Influenza, split virus, quadrivalent, PF 01/24/2022 [place] O[place]AN [place] [facility] 11/18/2023 13:27:35 Influenza, split virus, quadrivalent, PF 02/06/2023 [place] OSMAN [place] [facility] 11/18/2023 13:27:35 Influenza, split virus, trivalent, PF 02/05/2024 completed OSMAN Parker, [place] - [facility] 04/20/2024 11:07:16 Past Encounters Encounter ID Performer Location Encounter Start Date Encounter Closed Date Diagnosis/Indication Diagnosis SNOMED-CT Code Diagnosis ICD10 Code Diagnosis Note [id number] Rogerio Olea MD [facility] [place] [address] [place] [address] 10/21/2023 10:45:53 10/21/2023 11:37:29 Body mass index 30+ - obesity 645566966 Z68.35 BMI is 35.7 Obesity 732912418 E66.8 discussed healthy diet, exercise, controllin g carbohydra aditi and added sugars in the diet Adult [facility] th examination 885635216 Z00.01 Annual wellness exam completed Benign ess ential hypertension 2768024 I10 Start hydrochlor othiazide 12.5 mg daily for blood pressure control. Blood pressure is 140/90 on exam today Hyperlipidemia 83817644 E78.5 Patient is stable on rosuvastat in 10 mg daily and labs are currently up-to-date and stable. We will check to see if gynecology ordered a fasting lipid panel or if that is still to complete. Hypothyroidism 60046118 E03.9 Patient is now taking levothyrox ine 50 mcg daily that was initiated and ordered by gynecology when her TSH was elevated above 6.00 Long-term drug therapy 417227401 Z79.899 Positive s creening for depression on PHQ-9 (Patient Health Questionnaire 9) 2870458710 61242 Z13.31 patient was on fluoxetine in the past and does not want to take medication any more , she feels fine and stable. [id number] Rogerio Olea MD [facility] [employer] [address] [place] [address] 11/19/2023 09:29:51 11/19/2023 10:00:24 Paresthesia of lower extremity 499128810 R20.2 Patient is having paresthesi as of the lower extremity with some pain and discomfort as well. We will refer her for bilateral lower extremity nerve conduction study. Lumbar radiculopathy 128 829649 M54.16 Paresthesi as of the lower extremitie s could potentiall y be from lumbar radiculopa thy. Low back pain 042445704 M54.50 We will check an x-ray of the lumbar sacral spine to evaluate for lumbar radiculopa thy causes Benign ess ential hypertension 0426029 I10 Blood pressure is borderline but stable at 1 40/90 today. She is on lisinopril 20 mg daily and hydrochlor othiazide 12.5 mg daily. [id number] Rogerio Olea MD [facility] [employer] [address] [place] [address] 03/04/2024 14:40:44 03/09/2024 16:13:55 Body mass index 30+ - obesity 971245657 Z68.35 BMI is 34.4. start Wegovy injectable therapy. no personal or family hx of Medullary thyroid cancer or MEN conditions . Obesity 493882370 E66.9 discussed healthy diet, exercise, controllin g carbohydra aditi and added sugars in the diet Benign ess ential hypertension 0136204 I10 now on hydrochlor othiazide 12.5 mg daily for blood pressure control. still elevated today. Patient will need to work on decreasing sodium in the diet and increasing exercise. Continue hydrochlor othiazide 12.5 mg daily and lisinopril 20 mg daily and monitor home blood pressures. She would like to try and manage this with lifestyle modificati ons versus increased medicine. Hyperlipidemia 02905303 E78.5 lipid panel on statin Hypothyroidism 08156004 E03.9 Patient is now taking levothyrox ine 50 mcg daily due for updated labs Long-term drug therapy [id number] Z79.899 Lower urin vinny tract symptoms [id number] R39.9 Some positive findings on urine dipstick today we will start Macrobid 100 mg twice daily for 7 days Right flank pain 7840111 [address]10[address] scan abdomen and pelvis without contrast to rule out any renal stone. [id number] Rogerio Olea MD [facility] [place] [address] [place] [address] 04/20/2024 10:58:47 04/20/2024 15:10:07 Benign essential hypertension 7408152 I10 boost to lisinopril 30mg daily. continue hctz 12.5mg daily. Lower urin vinny tract symptoms [id number] R39.9 Patient has lower urinary tract symptoms of frequency and some dysuria. We will empiricall y treat her with Macrobid 100 mg daily Right flank pain 0175975 [address] scan abdomen and pelvis without contrast to rule out any renal stone. Hyperlipidemia 38555586 E78.5 Continue rosuvastat in 10 mg daily. Labs are up-to-date with her gynecologi st she will get us a copy Body mass index 30+ - obesity 157699029 Z68.35 BMI is 34.4. Hypothyroidism 84489210 E03.9 Patient is now taking levothyrox ine 50 mcg daily . Labs are up-to-date and reviewed today Obesity 109797194 E66.9 discussed healthy diet, exercise, controllin g carbohydra aditi and added sugars in the diet Long-term drug therapy 675184187 Z79.157 [id number] Rogerio Olea MD [facility] - Brittanie Martin [address] [place] [address] 06/09/2024 08:57:23 06/09/2024 09:27:12 Benign essential hypertension 5119824 I10 Continue lisinopril 30 mg daily and hydrochlor othiazide 12.5 mg daily. Blood pressure is 122/80 today and she is feeling very good with his improvemen t in blood pressure. We will see her in 6 months for her annual wellness. Long-term drug therapy 159815279 Z79.899 Body mass index 30+ - obesity 420892800 Z68.35 BMI is 34.1 Obesity 023464551 E66.9 discussed healthy diet, exercise, controllin g carbohydra aditi and added sugars in the diet Health Concerns Section Related Observation LastModified by Organization Detai ls LastModified Time None Recorded Concern Status LastModified by Organization Details LastModified Time None Recorded Advance Directives Directive N: Payers Encounter Date Sequence Insurance Name Policy Number Policy Ibrahim Covered Member ID Ibrahim Member ID Guarantor Name 10/21/2023 1 [place] [id number] Eura K Menezes [id number] Eura Menezes 10/21/2023 2 UMR [id number] Eura Menezes [id number] Eura Menezes 11/19/2023 1 [place] [id number] Eura K Menezes [id number] Eura Menezes 11/19/2023 2 UMR [id number] Eura Menezes [id number] Eura Menezes 03/04/2024 1 [place] [id number] Eura K Menezes [id number] Eura Menezes 03/04/2024 2 UMR [id number] Eura Menezes [id number] Eura Menezes 04/20/2024 1 [place] [id number] Stanton Menezes [id number] Brendaa Menezes 04/20/2024 2 UMR [id number] Brendaa Menezes [id number] Brendaa Menezes 06/09/[address] [facility]: (PPO) [id number] Stanton Menezes [id number] Stanton Choetes 06/09/2024 2 UMR [id number] Stanton Menezes [id number] Brendaa Menezes Notes Date Note Type Note Provider Name and Address Organization Details Recorded Time 024 text/ht ml Anxiety/DepressionReported bypatient.Notes:History of fluoxetine use but she is now off of medication and feeling quite fine and stable without any complaints in her mood.HyperlipidemiaReported bypatient.Notes:Patient is taking rosuvastatin 10 mg daily and is not sure but thinks that Gynecology may have ordered cholesterol lab work.HypertensionReported bypatient.Notes:Patient is taking lisinopril 20 mg daily with borderline blood pressure control today.ThyroidReported bypatient.Notes:Patient is newly placed on levothyroxine 50 mcg daily from Gynecology upon lab review that they ordered. AKIKO Lovell Attn: Accounting, [address] [place], [address], [facility] [place] 11/02/2023 16:33:52 024 text/ht ml HypertensionReported bypatient.Notes:Patient is taking lisinopril 20 mg daily with borderline blood pressure control today. pt. states that she started the New bp med prescribed to her on her last visit it has helped with the swelling; states that she is still in Pain; states that it has gone into her back as well as her butt. States that its also sensitive the touch states that it is much better today but over the week it was hard; is still having some numbness/tingling in both feet/legs AKIKO Lovell Attn: Accounting, [address] [facility], [place], [address], [facility] [place] 11/28/2023 00:25:07 024 text/ht ml Abdominal PainReported bypatient.Location:Right flank Quality:pain;dull Severity:mild Duration:intermittent Onset/Timing:wax/wane Modifying Factors:nothing gives relief Associated Symptoms:no fever; no chills; no blood in the urine; no heartburn; no shortness of breath; Some lower urinary tract symptoms that seem like a UTI Other:denies possible pregnancyHyperlipidemiaReported bypatient.Notes:Patient is taking rosuvastatin 10 mg daily and is not sure but thinks that Gynecology may have ordered cholesterol lab work.HypertensionReported bypatient.Notes:Patient is taking lisinopril 20 mg daily with borderline blood pressure control today.ThyroidReported bypatient.Notes:Patient is newly placed on levothyroxine 50 mcg daily from Gynecology upon lab review that they ordered. AKIKO Lovell Attn: Accounting, [address] [place], [address], [facility] [place] 03/23/2024 09:04:30 024 text/ht ml Abdominal PainReported bypatient.Location:RUQ; Right flank Quality:pain;dull Severity:mild Duration:intermittent Onset/Timing:wax/wane Modifying Factors:nothing gives relief Associated Symptoms:no fever; no chills; no blood in the urine; no heartburn; no shortness of breath; Some lower urinary tract symptoms that seem like a UTI Other:denies possible pregnancyHyperlipidemiaReported bypatient.Notes:Patient is taking rosuvastatin 10 mg daily and is not sure but thinks that Gynecology may have ordered cholesterol lab work.HypertensionReported bypatient.Notes:Patient is taking lisinopril 20 mg daily with borderline blood pressure control today.ThyroidReported bypatient.Notes:Patient is newly placed on levothyroxine 50 mcg daily from Gynecology upon lab review that they ordered. AKIKO Lovell Attn: Accounting, [address] [place], [address], [facility] [place] 04/28/2024 22:55:56 025 text/ht ml HypertensionReported bypatient.Notes:Patient is now taking higher dose lisinopril 30 mg daily and hydrochlorothiazide 12.5 mg daily and is here specifically for blood pressure follow-up. She has been feeling really well overall AKIKO Lovell Attn: Accounting, [address] [facility], [place], [address], [place] [facility] 06/09/2024 09:20:41 OBGyn Episode No OBEpisode recorded.
[2024-09-01 09:01] LABS: Anion Gap 6 mmol/L (4-12); Blood Urea Nitrogen 19 mg/dL (7-17); Calcium 9.3 mg/dL (8.4-10.2); Carbon Dioxide 30 mmol/L (22-30); Chloride 100 mmol/L (98-107); Estimated Glomerular Filt Rate 60; Glucose 126 mg/dL (65-110); Sodium 136 mmol/L (137-145)
== END 2024-09-01 08:28 | disposition home or self-care (01) ==
LOC: ANHSURGERY 08:31
PROVIDERS: Anesthesiology; PCP Physician Assistant; Visit Provider Obstetrics & Gynecology Gynecology
DX: Z79.899 Other long term (current) drug therapy (principal); Z01.818 Encounter for other preprocedural examination
CPT/HCPCS: 36415; 80048

== ENCOUNTER 2024-09-07 01:02 | Day surgery (SDC) | payer BC, OTHER, SELFPAY ==
[2024-08-27 10:25] VITALS: BMI 33.3
--- NOTE | 2024-08-27 10:25 | PC.NURSE ---
Report to the Outpatient Waiting Room, entrance under the green pavilion located off [facility], at time _1015_ on date _[id number]_. Planned Procedure Time: _1215_.? Time changes happen often and if your time is changed the preop area will call you the afternoon before. - You and your visitor will be asked to self-screen and do not enter if you have any COVID symptoms. Please call surgeon if you need to reschedule. - A mask is optional within the hospital at this time. Patients may have clear liquids (water, carbonated beverages, clear teas, apple juice) until 3 hours prior to surgery with a maximum of 20 ounces. - No food from midnight until time of surgery and no smoking, or chewing tobacco (or any form of nicotine). No chewing gum, candy or mints. Take only the following medications with a SIP of water on the morning of surgery: ___Levothyroxine__ DO NOT STOP ANY OF YOUR OTHER PRESCRIPTION MEDICATIONS PRIOR TO SURGERY EXCEPT THE FOLLOWING Hold all vitamins and supplements for 3 days per anesthesiologist. Medications to discontinue per physician Date to take last felr___[id number]___ Please no make-up, nail english, hairspray, perfume, deodorant, or body powder the day of surgery.? No jewelry (including any body piercings) or valuables the day of surgery, leave them at home.? Please take a shower or bath the night before, or the morning of, surgery with an antibacterial soap.? Wear comfortable, loose fitting clothing. - Jewelry must be removed prior to entering the operating room.? Rings and piercings that are not removed may be cut off. - The hospital will not accept responsibility for valuables.? - Please leave all valuables, including medications, at home the day of surgery. If you are going home after surgery, a licensed commercial driver's license driver must drive you home.? - NO public transportation without another adult if you receive anesthesia. - We recommend that an adult stay with you for 24 hours following discharge. - We also recommend that you do not drive, make important decision, drink alcoholic beverages, or take any drugs that were not prescribed by your health care provider for at least 24 hours after your discharge time. Follow any additional instructions given to you from your surgeon. Telephone instructions given to __Kay__and asked if any additional questions and then verbalized understanding. Patient advised to call surgeon office or pre surgery nurse liaison [phone] if any additional questions.
--- OUTSIDE RECORDS SUMMARY | 2024-09-07 01:06 | XMS_ITS | Referral Summary ---
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 Gender Identity Not on file Sexual Orientation Not on file Last Filed Vital Signs Vital Sign Reading Time Taken Comments Blood Pressure 154/96 04/26/2019 11:32 AM ESE TEACHER Pulse 92 04/26/2019 11:32 AM ESE TEACHER Temperature 36.8 C (98.3 F) 04/26/2019 11:32 AM ESE TEACHER Respiratory Rate 16 04/26/2019 11:32 AM ESE TEACHER Oxygen Saturation 97% 04/26/2019 11:32 AM ESE TEACHER Inhaled Oxygen Concentration - - Weight 83.5 kg (184 lb) 04/26/2019 11:32 AM ESE TEACHER Height 166.4 cm (5' 5.5 ) 04/26/2019 11:32 AM CS T Body Mass Index 30.15 04/26/2019 11:32 AM ESE TEACHER Plan of Treatment Not on file Insurance [facility] ACCESS CHOICE Member Subscriber Plan / Payer ( fective 2017-Present) Name:Stanton Menezes Relation to Subscriber:Self Name:Stanton Menezes Payer ID:[id number] (NAIC) Type:[facility] Address: [address] [place] [phone] [facility] Care Teams Machinist Mate Relationship Specialty Start Date End Date Ayanna Ford PA PCP - General Physician Associate Media Planner 10/4/18
--- OUTSIDE RECORDS SUMMARY | 2024-09-07 01:06 | XMS_ITS | Data Portability ---
Author Organization [facility], Main Office Address [address] [place] [address] Assessment Encounter Date Assessment Date Assessment LastModified by Organization Details LastModified Time 08/30/2022 08/30/2022 colonoscopy dec 2021, sessile polyp repeat 5 years. [email or web address] Not available 08/30/2022 09:24:45 Plan of Treatment Reminders Order Date Submit Date Provider Last Modified By Organization Details Last Modified Time Details Appointments None recorded. Lab vitamin D, 25-hydroxy, total, serum 2022 023 [employer] [facility], [address], [place], [address], 3 09:13:43 CMP, serum or plasma 2022 023 [employer] [facility], [address], [place], [address], 3 09:13:41 CBC w/ auto diff 2022 023 [employer] [facility], [address], [place], [address], 3 09:13:44 TSH + free T4, serum 2022 023 [employer] [facility], [address], [place], [address], 3 09:13:39 HbA1c (hemoglobin A1c), blood 2022 023 [employer] [facility], [address], [place], [address], 3 09:13:42 lipid panel, serum 2022 023 [employer] [facility], [address], [place], [address], 3 09:13:41 Referral None recorded. Procedures None recorded. Surgeries None recorded. Imaging MAMMO, screening, digital, bilateral 2022 023 [email or web address], [address], [place] [address], [place], [address], 3 12:50:15 Medication Orders phentermine 37.5 mg capsule 2022 023 JACHIN [id number], [address], [place], [place], [id number], 3 14:17:58 phentermine 37.5 mg capsule 2022 023 JACHIN [id number], [address], [place], [place], [id number], 3 15:04:46 Patient TargetsNo targets recorded. Patient [...] Third trime ster 0.43- 2.91 Not Available [facility] [address] [place], [address], 09/06/2022 09:13:39 09/06/19 23 09/06/2022 TSH+F REE T4 T4, free 1.0 NG/dL 0.8-1. 8 normal Not Available [address], [address], 09/06/2022 09:13:39 09/06/19 23 09/06/2022 LIPID PANEL WITH RATIO S cholesterol, total 177 mg/dL <200 normal Not Available [address], [address], 09/06/2022 09:13:41 09/06/1909/06/2022 LIPID PANEL WITH RATIO S HDL cholesterol 55 mg/dL > or = 50 normal Not Available [address], [address], 09/06/2022 09:13:41 09/06/1909/06/2022 LIPID PANEL WITH RATIO S triglyceride s 114 mg/dL <150 normal Not Available [address], [address], 09/06/2022 09:13:41 09/06/1909/06/2022 LIPID PANEL WITH RATIO [...] agnos tics. com/f aq/FA Q164) Not Available [address] [place], [address], 09/06/2022 09:13:41 09/06/1909/06/2022 LIPID PANEL WITH RATIO S chol/HDLC ratio 3.2 (calc ) <5.0 normal Not Available [facility] [address], [address], 09/06/2022 09:13:41 09/06/1909/06/2022 LIPID PANEL WITH RATIO S LDL/HDL ratio 1.8 (calc ) Below avera ge Risk: <2.34 [place] ge Risk: 2.35- 4.12 Moder ate Risk: 4.13- 5.56 High Risk: >5.57 Not Available [facility] [address], [address], 09/06/2022 09:13:41 09/06/1909/06/2022 LIPID PANEL WITH RATIO S non HDL cholesterol 122 mg/dL _(dania c) <130 normal For patie nts with diabe aditi plus 1 major ASCVD risk facto r, treat ing to a non-H DL-C goal of <100 mg/dL (LDL- C of <70 mg/dL ) is consi lela das pemere c optio n. Not Available [address], [address], 09/06/2022 09:13:41 09/06/1909/06/2022 COMPR EHENS BEVERLEY METAB OLIC PANEL glucose 82 mg/dL 65-99 normal Fasti ng refer ence inter jeffrey Not Available [facility] [address], [address], 09/06/2022 09:13:41 09/06/1909/06/2022 COMPR EHENS BEVERLEY METAB OLIC PANEL urea nitrogen (BUN) 14 mg/dL 7-25 normal Not Available [facility] [address] [place], [address], 09/06/2022 09:13:41 09/06/19 23 09/06/2022 COMPR EHENS BEVERLEY METAB OLIC PANEL creatinine 0.97 mg/dL 0.50-1 .03 normal Not Available [address], [address], 09/06/2022 09:13:41 09/06/19 23 09/06/2022 COMPR EHENS [...] kdoqi /gfr% 5Fcal culat or Not Available [address], [address], 09/06/2022 09:13:41 09/06/19 23 09/06/2022 COMPR EHENS BEVERLEY METAB OLIC PANEL BUN/creatini ne ratio NOT APPLIC ABLE (calc ) 6-22 Not Available [address], [address], 09/06/2022 09:13:41 09/06/19 23 09/06/2022 COMPR EHENS BEVERLEY METAB OLIC PANEL sodium 138 mmol/ L 135-14 6 normal Not Available [address], [address], 09/06/2022 09:13:41 09/06/19 23 09/06/2022 COMPR EHENS BEVERLEY METAB OLIC PANEL potassium 4.6 mmol/ L 3.5-5. 3 normal Not Available [address], [address], 09/06/2022 09:13:41 09/06/19 23 09/06/2022 COMPR EHENS BEVERLEY METAB OLIC PANEL chloride 102 mmol/ L 98-110 normal Not Available [address], [address], 09/06/2022 09:13:41 09/06/19 23 09/06/2022 COMPR EHENS BEVERLEY METAB OLIC PANEL carbon dioxide 27 mmol/ L 20-32 normal Not Available [address], [address], 09/06/2022 09:13:41 09/06/19 23 09/06/2022 COMPR EHENS BEVERLEY METAB OLIC PANEL calcium 10.2 mg/dL 8.6-10 .4 normal Not Available [address], [address], 09/06/2022 09:13:41 09/06/19 23 09/06/2022 COMPR EHENS BEVERLEY METAB OLIC PANEL protein, total 7.0 g/dL 6.1-8. 1 normal Not Available [address], [address], 09/06/2022 09:13:41 09/06/19 23 09/06/2022 COMPR EHENS BEVERLEY METAB OLIC PANEL albumin 5.0 g/dL 3.6-5. 1 normal Not Available [address], [address], 09/06/2022 09:13:41 09/06/19 23 09/06/2022 COMPR EHENS BEVERLEY METAB OLIC PANEL globulin 2.0 g/dL_ (calc ) 1.9-3. 7 normal Not Available [address], [address], 09/06/2022 09:13:41 09/06/19 23 09/06/2022 COMPR EHENS BEVERLEY METAB OLIC PANEL albumin/glob ulin ratio 2.5 (calc ) 1.0-2. 5 normal Not Available [address], [address], 09/06/2022 09:13:41 09/06/19 23 09/06/2022 COMPR EHENS BEVERLEY METAB OLIC PANEL bilirubin, total 0.5 mg/dL 0.2-1. 2 normal Not Available [address] [address] [place], [address], 09/06/2022 09:13:41 09/06/19 23 09/06/2022 COMPR EHENS BEVERLEY METAB OLIC PANEL alkaline phosphatase 45 U/L 37-153 normal Not Available [address] [address] [place], [address], 09/06/2022 09:13:41 09/06/19 23 09/06/2022 COMPR EHENS BEVERLEY METAB OLIC PANEL AST 21 U/L 10-35 normal Not Available [address], [address], 09/06/2022 09:13:41 09/06/19 23 09/06/2022 COMPR EHENS BEVERLEY METAB OLIC PANEL ALT 23 U/L 6-29 normal Not Available [address], [address], 09/06/2022 09:13:41 09/06/1909/06/2022 HEMOG LOBIN A1C hemoglobin [...] Care in Diabe aditi(A DA). Not Available [facility] [employer] [address] [address] [place], [address], 09/06/2022 09:13:42 09/06/1909/06/2022 VITAM IN D,25- [place],TO [...] /MS is recom juan d: order code 61954 (sue ents >2yrs ). See Note 1 Note 1 For addit ional infor colin gaspar refer to http: //robert [email or web address].Joseph stDia gnost ics.c om/fa q/FAQ 199 (This link is being provi ded for infor garo swift/ allen wooten purpo ses only. ) Not Available [facility] [address] [address] [place], [address], 09/06/2022 09:13:43 09/06/1909/06/2022 CBC (INCL UDES DIFF/ PLT) white blood cell count 5.2 thous and/u L 3.8-10 .8 normal Not Available [facility] [address] [address] [place], [address], 09/06/2022 09:13:44 09/06/19 23 09/06/2022 CBC (INCL UDES DIFF/ PLT) red blood cell count 4.16 phoebe on/uL 3.80-5 .10 normal Not Available [address], [address], 09/06/2022 09:13:44 09/06/19 23 09/06/2022 CBC (INCL UDES DIFF/ PLT) hemoglobin 13.3 g/dL 11.7-1 5.5 normal Not Available [address], [address], 09/06/2022 09:13:44 09/06/1909/06/2022 CBC (INCL UDES DIFF/ PLT) hematocrit 40.5 % 35.0-4 5.0 normal Not Available [address], [address], 09/06/2022 09:13:44 09/06/19 23 09/06/2022 CBC (INCL UDES DIFF/ PLT) MCV 97.4 fL 80.0-1 00.0 normal Not Available [address], [address], 09/06/2022 09:13:44 09/06/1909/06/2022 CBC (INCL UDES DIFF/ PLT) MCH 32.0 pg 27.0-3 3.0 normal Not Available [address], [address], 09/06/2022 09:13:44 09/06/1909/06/2022 CBC (INCL UDES DIFF/ PLT) MCHC 32.8 g/dL 32.0-3 6.0 normal Not Available [address], [address], 09/06/2022 09:13:44 09/06/1909/06/2022 CBC (INCL UDES DIFF/ PLT) RDW 12.5 % 11.0-1 5.0 normal Not Available [facility] [address], [address], 09/06/2022 09:13:44 09/06/1909/06/2022 CBC (INCL UDES DIFF/ PLT) platelet count 237 thous and/u L 140-40 0 normal Not Available [address], [address], 09/06/2022 09:13:44 09/06/19 23 09/06/2022 CBC (INCL UDES DIFF/ PLT) MPV 10.4 fL 7.5-12 .5 normal Not Available [address], [address], 09/06/2022 09:13:44 09/06/19 23 09/06/2022 CBC (INCL UDES DIFF/ PLT) absolute neutrophils 3333 cells /uL 1500-7 800 normal Not Available [address], [address], 09/06/2022 09:13:44 09/06/19 23 09/06/2022 CBC (INCL UDES DIFF/ PLT) absolute lymphocytes 1414 cells /uL 850-39 00 normal Not Available [address], [address], 09/06/2022 09:13:44 09/06/1909/06/2022 CBC (INCL UDES DIFF/ PLT) absolute monocytes 354 cells /uL 200-95 0 normal Not Available [facility] [address], [address], 09/06/2022 09:13:44 09/06/1909/06/2022 CBC (INCL UDES DIFF/ PLT) absolute eosinophils 78 cells /uL 15-500 normal Not Available [facility] [address], [address], 09/06/2022 09:13:44 09/06/19 23 09/06/2022 CBC (INCL UDES DIFF/ PLT) absolute basophils 21 cells /uL 0-200 normal Not Available [address], [address], 09/06/2022 09:13:44 09/06/19 23 09/06/2022 CBC (INCL UDES DIFF/ PLT) neutrophils 64.1 % normal Not Available [facility] [address], [address], 09/06/2022 09:13:44 09/06/19 23 09/06/2022 CBC (INCL UDES DIFF/ PLT) lymphocytes 27.2 % normal Not Available [facility] [address], [address], 09/06/2022 09:13:44 09/06/19 23 09/06/2022 CBC (INCL UDES DIFF/ PLT) monocytes 6.8 % normal Not Available [address], [address], 09/06/2022 09:13:44 09/06/19 23 09/06/2022 CBC (INCL UDES DIFF/ PLT) eosinophils 1.5 % normal Not Available [address], [address], 09/06/2022 09:13:44 09/06/19 23 09/06/2022 CBC (INCL UDES DIFF/ PLT) basophils 0.4 % normal Not Available [address], [address], 09/06/2022 09:13:44 11/13/19 23 11/12/2022 MAMMO , jesus marshall, digit al, bilat eral No observ ation record ed. [email or web address] [facility] [address], [place], [address], 04/30/2023 13:42:22 11/21/1911/12/2022 MAMMO , scree rolando, digit al, bilat eral No observ ation record ed. [email or web address] [facility] [address], [place], [address], 04/30/2023 13:42:22 Result Notes None recorded. Problems Name Problem SNOMED Code Status Onset Date Resolution Date Notes Provider Name and Address Organization Details Recorded Time Benign hypertensi on 48670115 Active Not Available [facility] 3 17:44:46 Dysfunctio n of left eustachian tube 2276104966092 106 Active 2022 Not Available [facility] 3 17:44:46 Serous otitis media of left ear 9586146040885 103 Active 2022 Not Available [facility] 3 17:44:46 Benign essential hypertensi on 1582011 Active 2021 Not Available [facility] 3 17:44:46 Lumbar radiculopa thy 768629283 Active Not Available [facility] 3 17:44:46 Gallstone 429930289 Active 2021 Not Available [facility] 3 17:44:46 Mixed hyperlipid emia 169299411 Active 2021 Not Available [facility] 3 17:44:46 Right upper quadrant pain 993338233 Active 2021 Not Available [facility] 3 17:44:46 Lower urinary tract symptoms 656684771 Active 2021 Not Available [facility] 3 17:44:46 Vitamin D deficiency 51377048 Active Not Available [facility] 3 17:44:46 Pain of hip region 12631236 Active Not Available [facility] 3 17:44:46 Cough 88420119 Active 2021 Not Available [facility] 3 17:44:46 Hyperlipid emia 36061348 Active Not Available [facility] 3 17:44:47 Liver enzymes level above reference range 817294684 Active Not Available [facility] 17:44:47 Neck pain 60509203 Active Not Available [facility] 17:44:47 Upper respirator y infection 81380578 Active 2022 AKIKO Lovell [address] [facility], [place], [address] , [facility] [employer] [facility] 15:48:45 Problem Notes None recorded. Procedures Surgical History Date Name Laterality Status Provider Name and Address Organization Details Recorded Time 12/26/19 22 Cholecystectomy completed Not Available [facility] 06/27/2022 17:43:23 04/29/19 15 Date of Last Colonoscopy completed Not Available [facility] 06/27/2022 17:43:23 Orthopedic Surgery completed Not Available [facility] 06/27/2022 17:43:23 completed Not Available [facility] 06/27/2022 17:43:23 Imaging Results Imaging Date Name Status LastModified by Organiz ation Details LastModified Time 11/12/2022 MAMMO, screening, digital, bilateral completed [email or web address] [facility] [address], [place], [address], 04/30/2023 13:42:22 11/12/2022 MAMMO, screening, digital, bilateral completed [email or web address] [facility] [address], [place], [address], 04/30/2023 13:42:22 Procedure Notes None recorded. Medical Equipment None Reported. Allergies Allergen ID Allergen Name Allergen Category Reaction Reaction Severity Criticality Documentation Date Start Date Code Code System Note Provider Name and Address Organization Details Recorded Time 89236 Product containin g penicilli n (product) medicatio n Not available Not available Not available 06/27/2022 49297 8001 SNOMED Not Available [facility] 17:46:17 Medications Name Sig Start Date Stop [...] Not Available Not Available Not Avai lable Poca 3 470 mg daily, otc 2020 active Not Available Not Available Not Avai lable Poca 3 Fish Oil takes one daily 12/25 [...] % 99 % 67 /min 97.8 [degF] 88308.4 4 g 124 mm[Hg] 80 mm[Hg] Not Available [facility] 3 17:44:21 Date Recorded Body mass index (BMI) Body height Oxygen saturation Oxygen saturation in Arterial blood by Pulse oximetry Heart rate Body temperature Body weight Systolic blood pressure Diastolic blood pressure Provider Name and Address Organization Details Last Updated DateTime 3 33.9 kg/m2 165.1 cm 99 % 99 % 70 /min 96.8 [degF] 94009.8 4 g 124 mm[Hg] 70 mm[Hg] Not Available [facility] 3 17:44:21 Date Recorded Body height Body temperature Body mass index (BMI) Body weight Respiratory rate Oxygen saturation Oxygen saturation in Arterial blood by Pulse oximetry Heart rate Systolic blood pressure Diastolic blood pressure Provider Name and Address Organization Details Last Updated DateTime 3 165.1 cm 97.8 [degF] 33.4 kg/m2 38861.0 7 g 16 /min 98 % 98 % 93 /min 122 mm[Hg] 80 mm[Hg] BOLIVAR Mclaughlin [place] [facility] [employer] 3 09:22:22 Date Recorded Body height Body temperature Body mass index (BMI) Body weight Respiratory rate Oxygen saturation Oxygen saturation in Arterial blood by Pulse oximetry Heart rate Systolic blood pressure Diastolic blood pressure Provider Name and Address Organization Details Last Updated DateTime 3 165.1 cm 97.2 [degF] 32.4 kg/m2 43652.5 1 g 16 /min 98 % 98 % 84 /min 128 mm[Hg] 80 mm[Hg] BOLIVAR Mclaughlin Working [employer] [facility] [employer] [facility] 3 14:45:51 Date Recorded Systolic blood pressure Diastolic blood pressure Provider Name and Address Organization Details Last Updated DateTime 10/10/2022 118 mm[Hg] 80 mm[Hg] AKIKO Lovell [address] [place] [address], [address], [place] [facility] 10/10/2022 15:04:50 Date Recorded Body height Body mass index (BMI) Body weight Body temperature Heart rate Oxygen saturation Oxygen saturation in Arterial blood by Pulse oximetry Systolic blood pressure Diastolic blood pressure Provider Name and Address Organization Details Last Updated DateTime 165.1 cm 32 kg/m2 51784.7 4 g 98.3 [degF] 86 /min 99 % 99 % 130 mm[Hg] 86 mm[Hg] Maria Victoria Ward RN [facility] 14:03:11 Social History Question Answer Notes LastModified by Organizat ion Details LastModified Time Tobacco Smoking Status Former Smoker Maria Victoria Ward RN null, [facility] 11/12/2022 13:58:15 What Is Your Level Of Caffeine Consumption? Heavy [id number] Information not available 06/27/2022 How Much Tobacco Do You Chew? None [id number] Information not available 06/27/2022 In The 14 Days Before Symptom Onset, Have You Had Close Contact With A Laboratory-confirm ed COVID-19 While That Case Was Ill? No [email or web address] Information n ot available 11/12/2022 In The 14 Days Before Symptom Onset, Have You Had Close Contact With A Person Who Is Under Investigation For COVID-19 While That Person Was Ill? No [email or web address] Information not available 11/12/2022 What Type Of Diet Are You Following? REGULAR [id number] 026 Information not available 06/27/2022 Which Illicit Or Recreational Drugs Have You Used? None [email or web address] Information not available 11/12/2022 Have There Been Any Changes To Your Family Or Social Situation? No [email or web address] Information no t available 11/12/2022 Do You Use Insect Repellent Routinely? No [email or web address] Information not available 11/12/2022 What Was The Date Of Your Most Recent Tobacco Screening? 08/18/2020 Information not available 11/12/2022 What Is Your Relationship Status? [id number] Information not available 06/27/2022 Do You Use Your Seat Belt Or Car Seat Routinely? Yes [email or web address] Information not available 11/12/2022 Do You Have Smoke And Carbon Monoxide Detectors In Your Home? Yes [email or web address] Information not available 11/12/2022 At What Age Did You Start Smoking Tobacco? 17 [email or web address] Information not available 11/12/2022 How Much Tobacco Do You Smoke? 1 PPW [id number] 026 Information not available 06/27/2022 Do You Use Sunscreen Routinely? Yes [email or web address] Information not available 11/12/2022 Have You Recently Traveled Abroad? No [email or web address] Information not available 11/12/2022 Do You Have Any Dietary Restrictions? No [email or web address] Information not available 11/12/2022 Sex: Unknown Functional Status Question Answer Note LastModified by Organizat ion Details LastModified Time Do you use any illicit or recreational drugs? No [email or web address] Information not available 11/12/2022 Do you or have you ever used any other forms of tobacco or nicotine? No [email or web address] Information not available 11/12/2022 What is your level of alcohol consumption? Occasional [id number] Information not available 06/27/2022 Do you or have you ever used smokeless tobacco? Never used smokeless tobacco [id number].[id number] 8006 Information not available 06/27/2022 Are you currently employed? 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 Never used electronic cigarettes [email or web address] Information not available 11/12/2022 What is your exercise level? Occasional [id number] Information not available 06/27/2022 Mental Status None recorded. Family History Relationship Description Onset Age of this Age Resolved Age Notes LastModified by Organization Details LastModified Time Mother Hypertensive disorder [id number] Not available 06/27/2022 17:43:25 Medical History Condition Response HIGH CHOLESTEROL / HYPERLIPIDEMIA Y BACK / NECK PROBLEMS Y HEADACHES/MIGRAINES Y DIZZINESS Y HYPERTENSION Y BRONCHITIS Y Gynecological History Statement/Question Response Date of [...] influenza, unspecified formulation 5 completed Not Available [facility] 06/27/2022 17:46:15 influenza, unspecified formulation 6 completed Not Available [facility] 06/27/2022 17:46:16 Past Encounters Encounter ID Performer Location Encounter Start Date Encounter Closed Date Diagnosis/Indication Diagnosis SNOMED-CT Code Diagnosis ICD10 Code Diagnosis Note [id number] AKIKO Lovell [facility] [address] [place] [address] 08/18/2020 00:00:00 08/24/2020 13:35:08 [id number] Rogerio Olea MD [facility] [place] [address] [facility] [place] [address] 08/18/2021 00:00:00 08/18/2021 09:37:08 [id number] AKIKO Lovell [facility] [place] [address], [address] [place] [address] [place] [address] 05/15/2022 00:00:00 05/29/2022 20:47:33 [id number] AKIKO Lovell [facility] [place] [address] [facility] [place] [address] 06/12/2022 00:00:00 06/26/2022 19:40:13 [id number] AKKIO Lovell [facility] [place] [address], [address] [place] [address] [place] [address] 08/30/2022 09:16:57 08/30/2022 09:38:33 Adult health examination 711905295 Z00.01 annual wellness exam completed Benign hypertension 1072 5009 I10 stable on lisinopril 20mg daily Hyperlipidemia 78160681 E78.5 stable on crestor 10mg daily. due for fasting lipids. Diabetes m ellitus screening 195138993 Z13.1 screening diabetes due. Long-term drug therapy 482405210 Z79.899 routine CMP, CBC, TFTs Vitamin D deficiency 347 77303 E55.9 screening vit D lab is due and requested. on supplement . [id number] AKIKO Lovell [facility] [address] [facility] [place] [address] 10/10/2022 14:37:55 10/10/2022 15:07:45 Benign hypertension 88220223 I10 stable on lisinopril 20mg daily . blood pressure is normal today without concern. Body mass index 30+ - obesity 699042248 Z68.32 refill phentermin e and will take over management [id number] AKIKO Lovell [facility] [place] [address] [place] [address] 11/12/2022 13:57:16 11/12/2022 14:20:01 Benign hypertension 90733628 I10 stable on lisinopril 20mg daily . blood pressure is normal today without concern. Body mass index 30+ - obesity 269249673 Z68.32 refill phentermin e and will take over management Screening mammography 24 151892 Z12.31 mammogram is due Health Concerns Section Related Observation LastModified by Organization Detai ls LastModified Time None Recorded Concern Status LastModified by Organization Details LastModified Time None Recorded Advance Directives Directive None Recorded Payers Encounter Date Sequence Insurance Name Policy Number Policy Ibrahim Covered Member ID Ibrahim Member ID Guarantor Name 08/30/2022 1 [place] [id number] Eura K Menezes [id number] Eura K Menezes 08/30/2022 2 [facility] [id number] [facility] [id number] Eura K Menezes 10/10/2022 1 [place] [id number] Eura K Menezes [id number] Eura K Menezes 10/10/2022 2 [facility] [id number] [facility] [id number] Eura K Menezes 11/12/2022 1 [place] [id number] Eura K Menezes [id number] Eura K Menezes 11/12/2022 2 [facility] [id number] [facility] [id number] Eura K Menezes Notes Date Note Type [...] loss;popping noise in the ears Not Available [facility] 05/29/2022 20:47:33 3 text/html EaracheReported bypatient.Location:left Quality:aching; [...] the ears;ears feel full;itching (pruritus) Not Available [facility] 06/26/2022 19:40:13 3 text/html HyperlipidemiaReported bypatient.Duration:chronic Control:usually well controlled Current Therapy:currently taking: (rosuvastatin 10mg) Compliance:compliant; compliant with diet; exercises Complications:no coronary artery disease; no peripheral artery disease; no cardiovascular disease Risk Factors:hypertensionHypert ensionReported bypatient.Duration:has noted for years Onset/Timing:better Alleviating Factors:medication Associated Symptoms:no shortness of breath; no fatigue; no palpitations; no decline in exercise capacity; no snoring Wellness AKIKO Lovell [address], [address], [place], [address], [employer] 09/26/2022 00:12:54 3 text/html Generic HPI TemplateReported bypatient.Notes:Pt states she was at the weight clinic and her BP was elevated so they wouldn't fill her weight loss med. She wants to know if you will increase her BP med and sign off that she's ok to continue med. AKIKO Lovell [address], [address], [place], [address], [facility] 10/26/2022 22:11:40 3 text/html Elevated Blood PressureReported bypatient.Onset/Timing:bet ter Alleviating Factors:medication Associated Symptoms:no shortness of breath; no fatigue; no palpitations; no decline in exercise capacity; no snoring pt here for bp f/u AKIKO Lovell [address] [facility], [address], [place], [address], [facility] [employer] [facility] 11/26/2022 00:39:00 OBGyn Episode No OBEpisode recorded.
--- OUTSIDE RECORDS SUMMARY | 2024-09-07 01:06 | XMS_ITS | Data Portability ---
[facility] Organization [facility] Address [address] [place] [address] Care Team Providers Care Broadcast Producer Name Role Phone ERNESTO REAL Primary Care [...] DO Not Attach Compendium, Do Not Delete/merge, [id number] 03/04/2024 15:31:23 TSH + free T4, serum 2023 [facility], [address], [place], [address], 04/08/2024 11:42:13 T3, free, serum or plasma 2023 [facility], [address], [place], [address], 04/08/2024 11:42:13 Referral None recorded. Procedures nerve conductio n study/EMG , lower extremity (PROC) 2023 [facility] (Cardiology [facility]g), [address] [facility], [place], [address], 01/10/2024 11:44:09 Surgeries None recorded. Imaging CT, abdomen + pelvis, w/o contrast 2023 024 [email or web address] [facility], [address], [address], [place], [address], 06/10/2024 13:20:19 CT, abdomen + pelvis, w/o contrast 2023 024 [email or web address] [facility], [address], [address], [place], [address], 05/08/2024 16:42:54 XR, lumbosacr al spine, 2 or 3 view 2023 024 [facility] (Imaging), [address], [place], [address], 12/06/2023 14:50:33 Medication Orders Macrobid 100 mg capsule 2023 025 [facility] #[id number], [address], [place], [place], [id number], 06/09/2024 09:14:01 lisinopri l 30 mg tablet 2023 024 [id number], [address], [place], [place], [id number], 04/20/2024 11:24:47 Macrobid 100 mg capsule 2023 024 [email or web address] [facility] #[id number], [address], [place], [place], [id number], 06/09/2024 09:13:51 Wegovy 0.25 mg/0.5 mL subcutane ous pen injector 2023 025 [facility] #[id number], [address], [place], [place], [id number], 06/09/2024 09:14:09 hydrochlo rothiazid e 12.5 mg tablet 2023 024 apolinar [facility] #30474, [address] , [place], [place], [id number], 06/09/2024 09:06:51 Patient TargetsNo targets recorded. Patient Instructions Encounter Date Encounter Id Patient Instructions Last Modified By Organization Details Last Modified Time 10/21/2023 [id number] A healthy lifestyle: care instructions Not available 10/21/2023 11:32:18 03/04/2024 [id number] A healthy lifestyle: care instructions Not available 03/04/2024 15:20:47 04/20/2024 [id number] A healthy lifestyle: care instructions Not available 04/20/2024 11:24:41 Reason for Referral None Reported. Results Created Date Observation Date Name Description Value Unit Range Abnormal Flag Note LastModifiedBy Organization Detail LastModifiedTime 03/04/2003/04/2024 urina lysis , dipst ick Leukocytes Trace Not Available In-Offi ce Order Internal Use Only DO Not Attach Compendium DO Not Attach Compendium, Do Not Delete/merge, [id number] 03/04/2024 15:30:39 03/04/2003/04/2024 urina lysis , dipst ick Nitrite negati ve Not Available In-Office Order Internal Use Only DO Not Attach Compendium DO Not Attach Compendium, Do Not Delete/merge, [id number] 03/04/2024 15:30:39 03/04/2003/04/2024 urina lysis , dipst ick Urobilinogen .2 Not Available In-Of fice Order Internal Use Only DO Not Attach Compendium DO Not Attach Compendium, Do Not Delete/merge, [id number] 03/04/2024 15:30:39 03/04/2003/04/2024 urina lysis , dipst ick Protein 30 Not Available In-Office Order Internal Use Only DO Not Attach Compendium DO Not Attach Compendium, Do Not Delete/merge, [id number] 03/04/2024 15:30:39 03/04/20 24 03/04/2024 urina lysis , dipst ick pH 8.5 Not Available In-Office Order Internal Use Only DO Not Attach Compendium DO Not Attach Compendium, Do Not Delete/merge, 03/04/2024 15:30:39 03/04/20 24 03/04/2024 urina lysis , dipst ick Blood Non-He molyze d: Trace Not Available In-Office Order Internal Use Only DO Not Attach Compendium DO Not Attach Compendium, Do Not Delete/merge, [id number] 03/04/2024 15:30:39 03/04/20 24 03/04/2024 urina lysis , dipst ick Specific [place] 1.015 Not Available In-Off ice Order Internal Use Only DO Not Attach Compendium DO Not Attach Compendium, Do Not Delete/merge, 03/04/2024 15:30:39 03/04/20 24 03/04/2024 urina lysis , dipst ick Ketone Negati ve Not Available In-Office Order Internal Use Only DO Not Attach Compendium DO Not Attach Compendium, Do Not Delete/merge, [id number] 03/04/2024 15:30:39 03/04/20 24 03/04/2024 urina lysis , dipst ick Bilirubin Negati ve Not Available In-Office Order Internal Use Only DO Not Attach Compendium DO Not Attach Compendium, Do Not Delete/merge, 03/04/2024 15:30:39 03/04/20 24 03/04/2024 urina lysis , dipst ick Glucose Negati ve Not Available In-Office Order Internal Use Only DO Not Attach Compendium DO Not Attach Compendium, Do Not Delete/merge, [id number] 03/04/2024 15:30:39 03/04/20 24 03/04/2024 urina lysis , dipst ick Appearance Clear Not Available In-Offi ce Order Internal Use Only DO Not Attach Compendium DO Not Attach Compendium, Do Not Delete/merge, 03/04/2024 15:30:39 03/04/20 24 03/04/2024 urina lysis , dipst ick Color Yellow Not Available In-Office Order Internal Use Only DO Not Attach Compendium DO Not Attach Compendium, Do Not Delete/merge, [id number] 03/04/2024 15:30:39 12/06/19 24 12/06/2023 XR, lumbo sacra l spine , 2 or 3 view No observ ation record ed. [facility] [address], [place], [address], 12/09/2023 16:12:34 01/10/20 24 12/31/2023 nerve condu ction study /EMG, lower extre mity (PROC ) No observ ation record ed. [facility]) [address], [place], [address], 01/14/2024 11:17:24 05/07/19 25 11/12/2022 MAMMO , scree rolando, digit al, bilat eral No observ ation record ed. BARCODE Not Available 2024 19:59:42 07/25/19 25 07/24/2024 MAMMO , scree rolando, digit al, bilat eral No observ ation record ed. [email or web address] [facility] [address], [place], [address], 07/25/2024 20:30:18 08/08/19 25 08/06/2024 US, trans vagin al No observ ation record ed. [email or web address] [facility] [address], [place], [address], 08/18/2024 14:23:23 Result Notes None recorded. Problems Name Problem SNOMED Code Status Onset Date Resolution Date Notes Provider Name and Address Organization Details Recorded Time Body mass index 30+ - obesity 509324400 Active 2023 AKIKO Lovell Attn: Paul dallas,[address] [facility], [place], [address], [facility] 11:18:16 Obesity 324046436 Active 2023 AKIKO Lovell Attn: Accountporsche g,[address] [facility], [place], [address], [facility] - [facility] 4 11:18:17 Hyperlipide maggi 39237455 Active 2023 AKIKO Lovell Attn: Accountporsche g,[address] [facility], [place], [address], [place] [facility] 4 11:18:55 Benign essential hypertensio n 4503234 Active 2023 AKIKO Lovell Attn: Accountin g,[address] [facility], [place], [address], [facility] - [facility] 4 11:18:56 Hypothyroid ism 80504103 Active 2023 AKIKO Lovell Attn: Paul g,[address] [place], [address], [facility] - [facility] 4 11:18:58 Long-term drug therapy Active 2023 AKIKO Lovell Attn: Accountporsche g,[address] [facility], [place], [address], [facility] - [facility] 4 11:18:59 Positive screening for depression on PHQ-9 (Patient Health Questionnai re 9) 7559151881325 00 Active 2023 AKIKO Lovell Attn: Kulwinderporsche g,[address] [place], [address], [facility] - [facility] 4 16:32:16 Lower urinary tract symptoms 674624424 Active 2023 AKIKO Lovell Attn: Accountporsche g,[address] [place], [address], [facility] - [facility] 4 11:21:24 Problem Notes None recorded. Procedures Surgical History Date Name Laterality Status Provider Name and Address Organization Details Recorded Time 04/29/19 Cholecystectomy completed Swathi Hernandez MA [place] 10/21/2023 11:03:07 04/29/19 04 Knee Surgery completed Swathi Hernandez MA [place] [facility] 10/21/2023 11:03:00 04/29/19 02 section completed Swathi Hernandez [place] 10/21/2023 11:03:16 04/29/19 02 colonoscopy completed Swathi Hernandez MA [place] [facility] 10/21/2023 11:06:52 Imaging Results Imaging Date Name Status LastModified by Organization Details LastModified Time 12/06/2023 XR, lumbosacral spine, 2 or 3 view completed [facility] [address], [place], [address], 12/09/2023 16:12:34 12/31/2023 nerve conduction study/EMG, lower extremity (PROC) completed [facility]) [address], [place], [address], 01/14/2024 11:17:24 11/12/2022 MAMMO, screening, digital, bilateral completed [facility] Information not available 05/07/2024 19:59:42 07/24/2024 MAMMO, screening, digital, bilateral completed [email or web address] [facility] [address], [place], [address], 07/25/2024 20:30:18 08/06/2024 US, transvaginal completed [facility] [address], [place], [address], 08/18/2024 14:23:23 Procedure Notes None recorded. Medical Equipment None Reported. Allergies Allergen ID Allergen Name Allergen Category Reaction Reaction Severity Criticality Documentation Date Start Date Code Code System Note Provider Name and Address Organization Details Recorded Time 315634 Product containin g penicilli n (product) medicatio n other mild low 10/21/2023 98964 6061 SNOMED Don't remem sade OSMAN [place], [place] 10:56:22 Medications Name Sig Start [...] otc Not Available Not Available Not Available [place] 3 Fish Oil active otc Not Available [...] Address Organization Details Last Updated DateTime 4 68181.9 2 g 35.7 kg/m2 165.1 cm 71 /min 97 % 97 % 132 mm[Hg] 74 mm[Hg] Swathi Hernandez MA [facility] 4 11:09:24 Date Recorded Respiratory rate Systolic blood pressure Diastolic blood pressure Provider Name and Address Organization Details Last Updated DateTime 10/21/2023 18 /min 140 mm[Hg] 90 mm[Hg] AKIKO Lovell Attn: Accounting, [address] [place], [address], [facility] 10/21/2023 11:30:14 Date Recorded Body height Body mass index (BMI) Body weight Respiratory rate Oxygen saturation Oxygen saturation in Arterial blood by Pulse oximetry Heart rate Systolic blood pressure Diastolic blood pressure Provider Name and Address Organization Details Last Updated DateTime 4 165.1 cm 33.9 kg/m2 51397.8 4 g 18 /min 98 % 98 % 72 /min 138 mm[Hg] 88 mm[Hg] Jaylin Moses MA [facility] 4 09:40:51 Date Recorded Systolic blood pressure Diastolic blood pressure Provider Name and Address Organization Details Last Updated DateTime 11/19/2023 140 mm[Hg] 90 mm[Hg] AKIKO Lovell Attn: Accounting, [place], [address], [facility] 11/19/2023 09:57:15 Date Recorded Body height Body mass index (BMI) Body weight Respiratory rate Oxygen saturation Oxygen saturation in Arterial blood by Pulse oximetry Heart rate Systolic blood pressure Diastolic blood pressure Provider Name and Address Organization Details Last Updated DateTime 4 165.1 cm 34.4 kg/m2 53866.6 2 g 18 /min 97 % 97 % 84 /min 142 mm[Hg] 80 mm[Hg] Jaylin Moses MA [facility] 4 15:01:13 Date Recorded Systolic blood pressure Diastolic blood pressure Provider Name and Address Organization Details Last Updated DateTime 03/04/2024 150 mm[Hg] 90 mm[Hg] AKIKO Lovell Attn: Accounting,[address] [place], [address], [facility] 03/04/2024 15:15:27 Date Recorded Body height Body mass index (BMI) Body weight Oxygen saturation Oxygen saturation in Arterial blood by Pulse oximetry Heart rate Systolic blood pressure Diastolic blood pressure Provider Name and Address Organization Details Last Updated DateTime 4 165.1 cm 33.6 kg/m2 39207.6 6 g 98 % 98 % 84 /min 146 mm[Hg] 82 mm[Hg] Jaylin Moses MA [facility] 4 11:09:25 Date Recorded Systolic blood pressure Diastolic blood pressure Provider Name and Address Organization Details Last Updated DateTime 04/20/2024 138 mm[Hg] 90 mm[Hg] AKIKO Lovell Attn: Accounting,[address] [place], [address], [facility] 04/20/2024 11:19:33 Date Recorded Body height Body mass index (BMI) Body weight Oxygen saturation Oxygen saturation in Arterial blood by Pulse oximetry Heart rate Systolic blood pressure Diastolic blood pressure Provider Name and Address Organization Details Last Updated DateTime 5 165.1 cm 34.1 kg/m2 60797.0 8 g 99 % 99 % 68 /min 130 mm[Hg] 82 mm[Hg] Jaylin Moses MA [facility] 5 09:09:24 Date Recorded Respiratory rate Systolic blood pressure Diastolic blood pressure Provider Name and Address Organization Details Last Updated DateTime 06/09/2024 16 /min 122 mm[Hg] 80 mm[Hg] AKIKO Lovell Attn: Accounting, [address] [facility], [place], [address], [place] 06/09/2024 09:15:35 Social History Question Answer Notes LastModified by Organizat ion Details LastModified Time Tobacco Smoking Status Former Smoker Swathi HernandezOSMAN null, [place] - [place] 10/21/2023 11:00:28 Do You Have An Advance Directive? No Information n ot available 10/21/2023 How Many Years Have You Consumed Alcohol? 30 Information not available 10/21/2023 Are You Blind Or Do You Have Difficulty Seeing? No Information n ot available 10/21/2023 What Is Your Level Of Caffeine Consumption? Heavy Coffee Information not available 10/21/2023 In The 14 Days Before Symptom Onset, Have You Had Close Contact With A Laboratory-confirm ed COVID-19 While That Case Was Ill? No Information n ot available 10/18/2023 In The 14 Days Before Symptom Onset, Have You Had Close Contact With A Person Who Is Under Investigation For COVID-19 While That Person Was Ill? No Information not available 10/18/2023 Have You Been To An Area Known To Be High Risk For COVID-19? No Information not available 10/18/2023 Are You Deaf Or Do You Have Serious Difficulty Hearing? No Information not available 10/21/2023 What Type Of Diet Are You Following? REGULAR Information n ot available 10/21/2023 What Is The Highest Grade Or Level Of School You Have Completed Or The Highest Degree You Have Received? [id number] Information not available 10/21/2023 Are There Any [...] PPW Information not available 10/21/2023 Do You Use Sunscreen Routinely? Yes Information not available 10/21/2023 Has Tobacco Cessation Counseling Been Provided? Yes Information not available 10/18/2023 On What Date Was Tobacco Cessation Counseling Provided? 06/09/2024 Information not available 06/09/2024 How Many Years Have You Smoked Tobacco? 25 Information not available 10/21/2023 Sex: Female Functional Status Question Answer Note LastModified by Organizat ion Details LastModified Time Do you use any illicit or recreational drugs? No Information not available 10/21/2023 Do you or have you ever used any other forms of tobacco or nicotine? No Information not available 10/21/2023 What is your level of alcohol consumption? Moderate Information not available 10/21/2023 Are you currently employed? Yes Information not available 10/21/2023 Are you able to care for yourself? 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 Moderate Information not available 10/21/2023 Mental Status Question Answer Note LastModified by Organization D etails LastModified Time Do you feel stressed (tense, restless, nervous, or anxious, or unable to sleep at night)? [id number] Information not available 10/21/2023 Family History Relationship Description Onset Age of [...] PF, 30 mcg/0.3 mL dose 09/02/2020 completed Loren Coulter [place], [place] [facility] 11/18/2023 13:27:35 Influenza, split virus, quadrivalent, PF 01/24/2022 completed Loren Coulter [place], [place] [facility] 11/18/2023 13:27:35 Influenza, split virus, quadrivalent, PF 02/06/2023 completed Loren Coulter [place] [facility] 11/18/2023 13:27:35 Influenza, split virus, trivalent, PF 02/05/2024 completed Jaylin Moses [place], [place] [facility] 04/20/2024 11:07:16 Past Encounters Encounter ID Performer Location Encounter Start Date Encounter Closed Date Diagnosis/Indication Diagnosis SNOMED-CT Code Diagnosis ICD10 Code Diagnosis Note [id number] Rogerio Olea MD [facility] [place] [address] [place] [address] 10/21/2023 10:45:53 10/21/2023 11:37:29 Body mass index 30+ - obesity 285953022 Z68.35 BMI is 35.7 Obesity 185998971 E66.8 discussed healthy diet, exercise, controllin g carbohydra aditi and added sugars in the diet Adult heal th examination 466925883 Z00.01 Annual wellness exam completed Benign ess ential hypertension 3697543 I10 Start hydrochlor othiazide 12.5 mg daily for blood pressure control. Blood pressure is 140/90 on exam today Hyperlipidemia 51829897 E78.5 Patient is stable on rosuvastat in 10 mg daily and labs are currently up-to-date and stable. We will check to see if gynecology ordered a fasting lipid panel or if that is still to complete. Hypothyroidism 85197043 E03.9 Patient is now taking levothyrox ine 50 mcg daily that was initiated and ordered by gynecology when her TSH was elevated above 6.00 Long-term drug therapy 065936670 Z79.899 Positive s creening for depression on PHQ-9 (Patient Health Questionnaire 9) 5646457449 86095 Z13.31 patient was on fluoxetine in the past and does not want to take medication any more , she feels fine and stable. [id number] Rogerio Olea MD [facility] [address] [place] [address] 11/19/2023 09:29:51 11/19/2023 10:00:24 Paresthesia of lower extremity 580248419 R20.2 Patient is having paresthesi as of the lower extremity with some pain and discomfort as well. We will refer her for bilateral lower extremity nerve conduction study. Lumbar radiculopathy 128 875830 M54.16 Paresthesi as of the lower extremitie s could potentiall y be from lumbar radiculopa thy. Low back pain 485008180 M54.50 We will check an x-ray of the lumbar sacral spine to evaluate for lumbar radiculopa thy causes Benign ess ential hypertension 9219934 I10 Blood pressure is borderline but stable at 1 40/90 today. She is on lisinopril 20 mg daily and hydrochlor othiazide 12.5 mg daily. [id number] Rogerio Olea MD [employer] [facility] [address] [employer] [address] 03/04/2024 14:40:44 03/09/2024 16:13:55 Body mass index 30+ - obesity 217233163 Z68.35 BMI is 34.4. start Wegovy injectable therapy. no personal or family hx of Medullary thyroid cancer or MEN conditions . Obesity 436005978 E66.9 discussed healthy diet, exercise, controllin g carbohydra aditi and added sugars in the diet Benign ess ential hypertension 6481695 I10 now on hydrochlor othiazide 12.5 mg daily for blood pressure control. still elevated today. Patient will need to work on decreasing sodium in the diet and increasing exercise. Continue hydrochlor othiazide 12.5 mg daily and lisinopril 20 mg daily and monitor home blood pressures. She would like to try and manage this with lifestyle modificati ons versus increased medicine. Hyperlipidemia 35981058 E78.5 lipid panel on statin Hypothyroidism 67283787 E03.9 Patient is now taking levothyrox ine 50 mcg daily due for updated labs Long-term drug therapy 257447109 Z79.899 Lower urin vinny tract symptoms 131664400 R39.9 Some positive findings on urine dipstick today we will start Macrobid 100 mg twice daily for 7 days Right flank pain 1144971 [address] scan abdomen and pelvis without contrast to rule out any renal stone. [id number] Rogerio Olea MD [facility] [address] [place] [address] 04/20/2024 10:58:47 04/20/2024 15:10:07 Benign essential hypertension 2308213 I10 boost to lisinopril 30mg daily. continue hctz 12.5mg daily. Lower urin vinny tract symptoms 083008240 R39.9 Patient has lower urinary tract symptoms of frequency and some dysuria. We will empiricall y treat her with Macrobid 100 mg daily Right flank pain 5154562 [address] scan abdomen and pelvis without contrast to rule out any renal stone. Hyperlipidemia 31387016 E78.5 Continue rosuvastat in 10 mg daily. Labs are up-to-date with her gynecologi st she will get us a copy Body mass index 30+ - obesity 821151965 Z68.35 BMI is 34.4. Hypothyroidism 86176477 E03.9 Patient is now taking levothyrox ine 50 mcg daily . Labs are up-to-date and reviewed today Obesity 445124846 E66.9 discussed healthy diet, exercise, controllin g carbohydra aditi and added sugars in the diet Long-term drug therapy 481602916 Z79.549 [id number] Rogerio Olea MD [facility] e - [place] [address] [place] [address] 06/09/2024 08:57:23 06/09/2024 09:27:12 Benign essential hypertension 8307453 I10 Continue lisinopril 30 mg daily and hydrochlor othiazide 12.5 mg daily. Blood pressure is 122/80 today and she is feeling very good with his improvemen t in blood pressure. We will see her in 6 months for her annual wellness. Long-term drug therapy 239649934 Z79.899 Body mass index 30+ - obesity 079694360 Z68.35 BMI is 34.1 Obesity 315922406 E66.9 discussed healthy diet, exercise, controllin g [...] ID Guarantor Name 10/21/2023 1 [place] [id number] Eura K Menezes [id number] Eura Menezes 10/21/2023 2 UMR [id number] Eura Menezes [id number] Eura Menezes 11/19/2023 1 [place] [id number] Eura K Menezes [id number] Eura Menezes 11/19/2023 2 UMR [id number] Eura Menezes [id number] Eura Menezes 03/04/2024 1 [place] [id number] Eura K Menezes [id number] Eura Menezes 03/04/2024 2 UMR [id number] Eura Menezes [id number] Eura Menezes 04/20/2024 1 [place] [id number] Stanton Menezes [id number] Eura Menezes 04/20/2024 2 UMR [id number] Brendaa Menezes [id number] Eura Menezes 06/09/2024 1 [place] [id number] Stanton Menezes [id number] Eura Menezes 06/09/2024 2 UMR [id number] Stanton Choetes [id number] Eura Menezes Notes Date Note Type Note Provider [...] they ordered. AKIKO Lovell Attn: Accounting, [address] [place], [address], [facility] 11/02/2023 16:33:52 024 text/ht ml HypertensionReported bypatient.Notes:Patient [...] both feet/legs AKIKO Lovell Attn: Accounting, [address] [facility], [place], [address], [facility] - [place] 11/28/2023 00:25:07 024 text/ht ml Abdominal PainReported [...] they ordered. AKIKO Lovell Attn: Accounting, [address] [place], [address], [facility] 03/23/2024 09:04:30 024 text/ht ml Abdominal PainReported [...] they ordered. AKIKO Lovell Attn: Accounting, [address] [place], [address], [facility] 04/28/2024 22:55:56 025 text/ht ml HypertensionReported bypatient.Notes:Patient is now taking higher dose lisinopril 30 mg daily and hydrochlorothiazide 12.5 mg daily and is here specifically for blood pressure follow-up. She has been feeling really well overall AKIKO Lovell Attn: Accounting, [address] [facility], [place], [address], [facility] - [facility] 06/09/2024 09:20:41 OBGyn Episode No OBEpisode recorded.
--- OUTSIDE RECORDS SUMMARY | 2024-09-07 01:06 | XMS_ITS | Clinical Summary ---
Author Organization [facility] Address [address] [place] [id number] Phone Care Team Providers Care Director Perioperative Name Role Phone Unavailable Primary Care Provider [...] on file Legal Sex Female 2:37 PM BLOOD TYPER Gender Identity Not on file Sexual Orientation [...] 02/05/2024, , 01/24/2022, Additional history exists Insurance [facility] [employer]
--- OUTSIDE RECORDS SUMMARY | 2024-09-07 01:06 | XMS_ITS | Clinical Summary ---
Author Organization [facility] Address [address] [place] [address] Care Team Providers Care Hydraulic Tester Name Role Phone Delphinejanene Ayanna WHARTON Primary [...] on file Legal Sex Female 6:17 PM MOLD COOLER Gender Identity Not on file Sexual Orientation Not on file Obstetrics History Last Filed Vital Signs Vital Sign Reading Time Taken Comments Blood Pressure 154/96 04/26/2019 11:32 AM MOLD COOLER Pulse 92 04/26/2019 11:32 AM MOLD COOLER Temperature 36.8 C (98.3 F) 04/26/2019 11:32 AM MOLD COOLER Respiratory Rate 16 04/26/2019 11:32 AM MOLD COOLER Oxygen Saturation 97% 04/26/2019 11:32 AM MOLD COOLER Inhaled Oxygen Concentration - - Weight 83.5 kg (184 lb) 04/26/2019 11:32 AM MOLD COOLER Height 166.4 cm (5' 5.5 ) 04/26/2019 11:32 AM CS T Body Mass Index 30.15 04/26/2019 11:32 AM MOLD COOLER Plan of Treatment Not on [place] [address] [facility] ACCESS CHOICE [facility] Care Teams Hydraulic Tester Relationship Specialty Start Date End Date Ayanna Ford PA PCP - General Physician Housekeeper And Laundry Assistant 01/30/18
--- NOTE | 2024-09-07 08:29 | WPDHPUPDATE1 ---
History and Physical Update Update Date/Time: 09/07/24 08:29 History and Physical has been reviewed, including an updated exam of the patient. There are NO changes in the patient's condition. Risks, benefits, and alternatives have been discussed and questions answered. Patient agrees to proceed with procedure.
--- NOTE | 2024-09-07 08:30 | PM.HPGS ---
History of Present Illness History of Present Illness Consent: Risks, benefits, and alternatives have been discussed and questions answered. Patient agrees to proceed with procedure. Chief complaint: irregular bleeding Narrative: Stanton Menezes is a 54 year old female who with regular cycles and intermenstrual bleeding. Patient has bleeding with lifting, exercise, or randomly. It was recommended to undergo D&C hysteroscopy for further evaluation. Risks of infection, bleeding, perforation, and possible pathology are reviewed. Patient voices understanding and agrees to proceed. Review of Systems Review of Systems: not repeated day of surgery; patient states no changes in status [facility] Past Medical History Medical History (Updated 09/07/24 @ 08:32 by Ana Garcia MD) Anxiety Arthritis Depression Hyperlipidemia Hypertension Surgical History Surgical History (Updated 09/07/24 @ 08:31 by Ana Garcia MD) History of knee surgery Hx laparoscopic cholecystectomy Performed by Dr. Allen on 12/25/21 Hx of tonsillectomy H/O section Family History Family History Father Hypertension Family history of arthritis Family history of malignant neoplasm Family history of mental disorder Mother Hypertension Social History Social History Years smoked: 20 Smoking status: Former smoker Tobacco type: cigarettes Smoking end date: 08/27/10 Additional smoking assessment comments: SOCIAL SMOKER - ONLY ON WEEKENDS - QUIT 2010 Alcohol intake: current Drinks per week: 6 Substance use: never Substance use type: does not use Living arrangements: with family Spiritual care concerns: No Meds Home Medications and Allergies Home Medications ?Medication ?Instructions ?Recorded ?Confirmed ?Type cetirizine 10 mg tablet (Zyrtec) 10 mg PO DAILY 09/29/21 08/27/24 History ibuprofen 600 mg tablet 600 mg PO Q6H PRN Pain 09/29/21 08/27/24 History omega-3 fatty acids-fish oil 684 1 cap PO DAILY 09/29/21 08/27/24 History mg-1,200 mg capsule,delayed release aspirin 81 mg tablet,delayed 81 mg PO DAILY 08/27/24 08/27/24 History release (Adult Low Dose Aspirin) cholecalciferol (vitamin D3) 25 1,000 unit PO DAILY 08/27/24 08/27/24 History mcg (1,000 unit) capsule (Vitamin D3) cyanocobalamin (vitamin B-12) 500 500 mcg PO DAILY 08/27/24 08/27/24 History mcg tablet (Vitamin B-12) hydrochlorothiazide 12.5 mg tablet 12.5 mg PO DAILY 08/27/24 08/27/24 History levothyroxine 50 mcg tablet 50 mcg PO DAILY 08/27/24 08/27/24 History (Euthyrox) lisinopril 30 mg tablet 30 mg PO DAILY 08/27/24 08/27/24 History magnesium oxide 500 mg PO HS 08/27/24 08/27/24 History rosuvastatin 20 mg tablet (Crestor) 20 mg PO HS 08/27/24 08/27/24 History vitamin E 268 mg (400 unit) capsule 268 mg PO DAILY 08/27/24 08/27/24 History Allergies Allergy/AdvReac Type Severity Reaction Status Date / Time Penicillins Allergy Unknown Other Verified 08/27/24 10:08 Exam Const: General: healthy appearing and alert Orientation/consciousness: patient oriented x3 Resp: Effort & Inspection: normal respiratory effort : External Female Exam: normal external appearance Speculum Exam - Vagina: normal appearance of the vagina and normal vaginal discharge Speculum Exam - Cervix: normal appearance of the cervix Bimanual exam- vagina & uterus: uterine size normal and consistency normal Bimanual Exam- Adnexa, other: normal adnexae and No adnexal tenderness Neuro: General: patient oriented x3 Assessment and Plan Assessment and plan (1) Intermenstrual bleeding: Code(s): N92.3 - Ovulation bleeding Status: Acute Assessment and Plan: Plan to proceed with D&C hysteroscopy
[2024-09-07 10:20] VITALS: BP 135/87; PULSE 68; RESP 16; TEMP 36.3; O2SAT 100; BMI 33.9
--- NOTE | 2024-09-07 10:40 | WPDANESEPPF ---
Anes - Initial Pre Proc Eval Procedure: Operation Date: 09/07/24 12:15 Proposed Procedures p Hysteroscopy Dilation and Curettage - Ana Garcia MD Date/Time: 09/07/24 10:40 Surgeon: Ana Garcia MD Pre Op Diagnosis: irregular bleeding Patient Data Age: 54 Gender: F Height: 1.65 m Weight: 90.9 kg Allergies Allergy/AdvReac Type Severity Reaction Status Date / Time Penicillins Allergy Unknown Other Verified 08/27/24 10:08 Home Medications ?Medication ?Instructions ?Recorded ?Confirmed ?Type cetirizine 10 mg tablet (Zyrtec) 10 mg PO DAILY 09/29/21 08/27/24 History ibuprofen 600 mg tablet 600 mg PO Q6H PRN Pain 09/29/21 08/27/24 History omega-3 fatty acids-fish oil 684 1 cap PO DAILY 09/29/21 08/27/24 History mg-1,200 mg capsule,delayed release aspirin 81 mg tablet,delayed 81 mg PO DAILY 08/27/24 08/27/24 History release (Adult Low Dose Aspirin) cholecalciferol (vitamin D3) 25 1,000 unit PO DAILY 08/27/24 08/27/24 History mcg (1,000 unit) capsule (Vitamin D3) cyanocobalamin (vitamin B-12) 500 500 mcg PO DAILY 08/27/24 08/27/24 History mcg tablet (Vitamin B-12) hydrochlorothiazide 12.5 mg tablet 12.5 mg PO DAILY 08/27/24 08/27/24 History levothyroxine 50 mcg tablet 50 mcg PO DAILY 08/27/24 08/27/24 History (Euthyrox) lisinopril 30 mg tablet 30 mg PO DAILY 08/27/24 08/27/24 History magnesium oxide 500 mg PO HS 08/27/24 08/27/24 History rosuvastatin 20 mg tablet (Crestor) 20 mg PO HS 08/27/24 08/27/24 History vitamin E 268 mg (400 unit) capsule 268 mg PO DAILY 08/27/24 08/27/24 History Patient hx anesthesia problems: none Family hx anesthesia problems: none Results Review: All pre-operative results and documents have been reviewed as part of the pre-operative evaluation. [facility] Past Medical History Medical History Anxiety Arthritis Depression Hyperlipidemia Hypertension Surgical History Surgical History History of knee surgery Hx laparoscopic cholecystectomy Performed by Dr. Allen on 12/25/21 Hx of tonsillectomy H/O section Family History Family History Father Hypertension Family history of arthritis Family history of malignant neoplasm Family history of mental disorder Mother Hypertension Social History Social History Years smoked: 20 Smoking status: Former smoker Tobacco type: cigarettes Smoking end date: 08/27/10 Additional smoking assessment comments: SOCIAL SMOKER - ONLY ON WEEKENDS - QUIT 2010 Alcohol intake: current Drinks per week: 6 Substance use: never Substance use type: does not use Living arrangements: with family Spiritual care concerns: No Anes - Eval Final PreProcedure Day of Procedure 09/07/24 10:40 Patient weight: obese Heart: regular rate and rhythm Lungs: clear to auscultation Airway: Mallampati scale class II Neurological: alert and oriented Last oral intake: >/= 8 hours ASA classification: III Emergent: no Anesthetic plan: proceed Anesthesia type and monitoring: general GIVS and standard monitoring Results Review: All pre-operative results and documents have been reviewed as part of the pre-operative evaluation. Informed Consent: The patient's anesthetic plan and its attendant risks and benefits were discussed with the patient/family/POA. Questions were solicited and answers provided to the satisfaction of the patient/family/POA.
[2024-09-07] MEDS: LACTATED RINGERS 1,000 ML 30 ML IV CONT (10:50)
[2024-09-07] MEDS: ACETAMINOPHEN 500 MG TABLET 1000 MG PO (10:52)
[2024-09-07 11:02] LABS: BEDSIDEPREGUCG Negative (Negative)
[2024-09-07] MEDS: KETOROLAC 15 MG/ML VIAL (*BKC) IV PUSH (13:01)
[2024-09-07 13:10] VITALS: BP 104/60; PULSE 69; RESP 14; O2SAT 97
--- NOTE | 2024-09-07 13:10 | P.OP_ITS ---
Procedure Note - Detailed Date of Procedure 09/07/24 Pre-op Diagnosis irregular bleeding Post-op Diagnosis Same Procedure Performed D&C hysteroscopy Surgeon Ana Garcia MD Anesthesia MAC Findings The uterus is anteverted to90?. The endometrium appears grossly normal. Description of Procedure The patient is taken to the operating room and placed under anesthesia in the dorsal lithotomy position. She was prepped draped in the usual sterile fashion. [place] speculum was placed in the vagina and the cervix was grasped on the anterior lip with a tenaculum. The uterus was noted to be quite anteverted. The sound initially only entered to 6cm. The hysteroscope was used to hydrodissect and there was quite a difficult path to get to the cavity. The cavity appeared grossly normal but due to the difficulty reaching the cavity the small resection device was used to obtain the specimen. The hysteroscope was then removed and the uterus again sounded following the path of the hysteroscope and the uterus sounds to 9cm. The sharp curette was used and minimal material obtained. A good uterine cry was noted in all areas. All instruments are removed. Sponge, needle, and instrument counts are correct per the OR staff. The patient was awakened from anesthesia and taken to recovery in stable condition. Estimated Blood Loss 5 Drains No Packing No Pathology Yes ( Endometrial shavings and curettings) Complications No immediate complications Condition Stable Disposition PACU
[2024-09-07 13:40] VITALS: BP 104/60; PULSE 64; RESP 16; O2SAT 97
[2024-09-07 13:55] VITALS: BP 122/77; PULSE 60; RESP 16
== END 2024-09-07 14:01 | disposition home or self-care (01) ==
PROVIDERS: PCP Physician Assistant; Visit Provider Obstetrics & Gynecology Gynecology
PROC: 0U5B8ZZ Destruction of Endometrium, Via Natural or Artificial Opening Endoscopic (ICD-10-PCS; CPT 58563; principal; 2024-09-07 12:15)
DX: N92.3 Ovulation bleeding (principal); Z87.891 Personal history of nicotine dependence; E66.9 Obesity, unspecified; Z68.33 Body mass index [BMI] 33.0-33.9, adult
CPT/HCPCS: 58558; 88305; A9270; J1885; J2003; J2250; J2704; J3010; J7120

== ENCOUNTER 2024-12-05 20:04 | Emergency (ER) | payer BC, SELFPAY ==
--- NOTE | ~2024-12-05 | XR_ITS ---
EXAMINATION: XR chest 2V Exam Date/Time: 12/05/2024 20:35 CDT HISTORY: syncope Comparison: None. RESULT: Lines, tubes, and devices: Cholecystectomy clips. Lungs and pleura: Clear. Cardiomediastinal silhouette: Normal. Other: No acute osseous or upper abdominal finding. IMPRESSION: No acute cardiopulmonary process. Reviewed, dictated and finalized at location K.
--- NOTE | ~2024-12-05 | CT_ITS ---
EXAMINATION: CT brain wo con DATE: 12/05/2024 21:02 INDICATION: CHI . TECHNIQUE: Computed tomography (CT) of the head was performed without intravenous contrast. The mA wa s adjusted according to patient size. Iterative reconstruction technique was employed. The dose-lengt h product was 605.33 mGy-cm. COMPARISON: MR brain 05/20/2014. FINDINGS: No acute intracranial hemorrhage or extra-axial fluid collection. No hydrocephalus, mass, or herniation. No acute ischemic infarct. Unremarkable dural venous sinus attenuation. No acute osseous abnormality. The aerated spaces are clear. IMPRESSION: No acute intracranial process. Reviewed, dictated and finalized at location K.
--- NOTE | ~2024-12-05 | CT_ITS ---
EXAMINATION: CTA chest PE protocol DATE: 12/05/2024 22:15 INDICATION: Syncope. Elevated d-dimer. TECHNIQUE: Computed tomography (CT) pulmonary angiogram of the chest was performed with 100 mL Omnipa que-350 intravenous contrast. Additional 3D reconstructions utilizing coronal maximum intensity proje ction (MIP) were performed. Automated exposure control and iterative reconstruction technique were em ployed. The dose-length product was 472.16 mGy-cm. COMPARISON: None FINDINGS: No pulmonary embolism. No pneumonia, pulmonary edema, pleural effusion or pneumothorax. Incidental an atomic variant azygos lobe and fissure. Heart size is normal. No pericardial effusion. Thoracic aorta is normal in caliber with no dissection. No pathologically enlarged thoracic lymphadenopathy. Cholec ystectomy clips the gallbladder fossa. Moderate thoracic spondylosis. IMPRESSION: 1. No pulmonary embolism or other acute cardiopulmonary disease. Reviewed, dictated and finalized at location A.
--- NOTE | 2024-12-05 20:11 | ECG_ITS ---
Test Date: 2024-12-05 20:14:23 Measurements Intervals [place] Rate: 62 P: 45 GA: 175 QRS: -6 QRSD: 164 T: 89 QT: 476 QTc: 487 Interpretive Statements SINUS RHYTHM LEFT BUNDLE BRANCH BLOCK ABNORMAL ECG No previous ECG available for comparison Electronically Signed On 12-05-2024 20:29:13 CDT by Giovanny Diez D.O.
[2024-12-05 20:13] VITALS: BP 141/95; PULSE 63; RESP 18; TEMP 36.9; O2SAT 95
[2024-12-05 20:28] LABS: Hematocrit 42.3 % (37.0-47.0); Hemoglobin 14.5 g/dL (12.0-15.0); Immature Granulocyte Percent A 0.3 % (0-0.5); Lymphocytes Absolute Auto 4.22 K/mm3 (0.9-3.2); Mean Corpuscular HGB Conc 34.3 g/dl (32-36); Mean Corpuscular Hemoglobin 30.0 pg (26-34); Mean Corpuscular Volume 87.4 fl (80-100); Nucleated Red Blood Cells Absolute Auto 0.000 K/mm3 (0.0-0.012); Nucleated Red Blood Cells Perc 0.0 % (0.0-0.2); Platelet Count Result 246 k/mm3 (150-375); Red Blood Count 4.84 M/mm3 (4.2-5.4); White Blood Count 9.8 K/mm3 (4.5-10.0)
[2024-12-05 20:38] LABS: Alanine Aminotransferase 35 U/L (6-35); Albumin Level 4.6 g/dL (3.5-5.1); Alkaline Phosphatase 65 U/L (38-126); Anion Gap 14 mmol/L (4-12); Aspartate Amino Transferase 33 U/L (14-36); Bilirubin,Total 0.6 mg/dL (0.2-1.3); Blood Urea Nitrogen 23 mg/dL (7-17); Calcium 9.8 mg/dL (8.4-10.2); Carbon Dioxide 25 mmol/L (22-30); Chloride 97 mmol/L (98-107); Estimated CRCL calculation 70 ml/min; Estimated Glomerular Filt Rate > 60; Glucose 94 mg/dL (65-110); INR 0.9; Lipase 76 U/L (23-300); Potassium 3.2 mmol/L (3.4-5.0); Prothrombin Time 12.4 Seconds (11.1-14.7); Sodium 136 mmol/L (137-145); Total Protein 7.8 g/dL (6.3-8.2)
[2024-12-05 20:39] LABS: Partial Thromboplastin Time 23.6 Seconds (22.3-36.8)
[2024-12-05 20:50] LABS: Troponin I < 0.012 ng/mL (0.000-0.034)
--- OUTSIDE RECORDS SUMMARY | 2024-12-05 20:58 | XMS_ITS | Clinical Summary ---
Author Organization [facility] Address [address] [place] [address] Care Team Providers Care Gunite Mixer Name Role Phone Delphinejanene Ayanna WHARTON Primary [...] on file Legal Sex Female 6:17 PM PEARL PELLER Gender Identity Not on file Sexual Orientation Not on file Obstetrics History Last Filed Vital Signs Vital Sign Reading Time Taken Comments Blood Pressure 154/96 04/26/2019 11:32 AM PEARL PELLER Pulse 92 04/26/2019 11:32 AM PEARL PELLER Temperature 36.8 C (98.3 F) 04/26/2019 11:32 AM PEARL PELLER Respiratory Rate 16 04/26/2019 11:32 AM PEARL PELLER Oxygen Saturation 97% 04/26/2019 11:32 AM PEARL PELLER Inhaled Oxygen Concentration - - Weight 83.5 kg (184 lb) 04/26/2019 11:32 AM PEARL PELLER Height 166.4 cm (5' 5.5) 04/26/2019 11:32 AM CS T Body Mass Index 30.15 04/26/2019 11:32 AM PEARL PELLER Plan of Treatment Not on [place] [address] [facility] ACCESS CHOICE [facility] Care Teams Gunite Mixer Relationship Specialty Start Date End Date Ayanna Ford PA PCP - General Physician Bilingual Interpreter 01/30/18
--- OUTSIDE RECORDS SUMMARY | 2024-12-05 20:58 | XMS_ITS | Clinical Summary ---
Author Organization [facility] Address [address] [place] [phone] Phone Care Team Providers Care Globe Mounter Name Role Phone Unavailable Primary Care Provider Unavailabl e Encounters Date Type Department Care Team Description 12/01/2024 External Device Data [facility] ABSTRACTION Provider, Abstract 11/11/2024 External Device Data [facility] ABSTRACTION Provider, Abstract 11/10/2024 External Device Data [facility] ABSTRACTION Provider, Abstract 10/13/2024 External Device Data [facility] ABSTRACTION Provider, Abstract 09/17/2024 External Device Data [facility] ABSTRACTION Provider, Abstract 09/15/2024 External Device Data [facility] ABSTRACTION Provider, Abstract [...] on file 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
--- OUTSIDE RECORDS SUMMARY | 2024-12-05 20:58 | XMS_ITS ---
Author Organization Unknown ENCOUNTERS Encounter Performer Location Date Diagnosis Diagnosis Status Emergency [facility] [address] [place] [address] [id number] Pre Admit [facility] [address] [place] [address] [id number] Outpatient [facility] [address] [place] [address] [id number] [place] [facility] [address] [place] [address] [id number] [place] Outpatient Ayanna Menossi [facility] [address] [place] [address] [id number] [place] Outpatient Ayanna Menossi [facility] [address] [place] [address] [id number] [place] Out[place] [facility] [address] [place] [address] [id number] [place] [facility] [address] [place] [address] [id number] [place] Outpatient [facility] [address] [place] [address] [id number] [place] *Note: Encounters from your own facility or health system may be excluded. Allergies, Adverse Reactions, Alerts Allergen Type Severity Identification Date Penicillins drug allergy 3 [id number] Medications Name Date Quantity Days Supplied GPI Number
--- NOTE | 2024-12-05 21:24 | ED_ITS ---
HPI - Syncope General Chief Complaint: Syncope Stated Complaint: syncope Time Seen by Provider: 12/05/24 20:09 History of Present Illness HPI narrative: 54-year-old female presenting to the emergency department after a syncopal event. She has a history of hypertension, hyperlipidemia. She presents after having a witnessed syncopal event while she was outside on a both throughout the day drinking mild amount of alcohol. She states she felt dehydrated, felt lightheaded dizzy and profoundly diaphoretic and had a prodrome before she passed out briefly. She had a left-sided headache as the stool but did wake up quickly thereafter and reports no symptoms at this time. She states immediately after the fall and syncope she felt a little diaphoretic but this resolved. Currently she is in symptomatic and denies any headache, fever, chills, nausea, vomiting, vision changes, headache, chest pain or shortness of breath. She states nothing like this has happened or previously. No cardiac history to her knowledge. Patient denies any weakness or fatigue or any neurological deficits. Does not take any blood thinners. Has small abrasions to the right side of her face. Related Data Home Medications ?Medication ?Instructions ?Recorded ?Confirmed ?Last Taken ?Type cetirizine 10 mg tablet (Zyrtec) 10 mg PO DAILY 09/29/21 09/07/24 09/06/24 History ibuprofen 600 mg tablet 600 mg PO Q6H PRN Pain 09/29/21 08/27/24 12/19/21 History omega-3 fatty acids-fish oil 684 1 cap PO DAILY 09/29/21 09/07/24 09/04/24 History mg-1,200 mg capsule,delayed release aspirin 81 mg tablet,delayed 81 mg PO DAILY 08/27/24 09/07/24 09/06/24 History release (Adult Low Dose Aspirin) cholecalciferol (vitamin D3) 25 1,000 unit PO DAILY 08/27/24 09/07/24 09/04/24 History mcg (1,000 unit) capsule (Vitamin D3) cyanocobalamin (vitamin B-12) 500 500 mcg PO DAILY 08/27/24 09/07/24 09/04/24 History mcg tablet (Vitamin B-12) hydrochlorothiazide 12.5 mg tablet 12.5 mg PO DAILY 08/27/24 09/07/24 09/06/24 History levothyroxine 50 mcg tablet 50 mcg PO DAILY 08/27/24 09/07/24 09/07/24 History (Euthyrox) lisinopril 30 mg tablet 30 mg PO DAILY 08/27/24 09/07/24 09/07/24 History magnesium oxide 500 mg PO HS 08/27/24 08/27/24 Unknown History rosuvastatin 20 mg tablet (Crestor) 20 mg PO HS 08/27/24 09/07/24 09/06/24 History vitamin E 268 mg (400 unit) capsule 268 mg PO DAILY 08/27/24 09/07/24 09/04/24 History Allergies Allergy/AdvReac Type Severity Reaction Status Date / Time Penicillins Allergy Unknown Other Verified 09/07/24 10:54 Review of Systems 2 Review of Systems: As reviewed above in HPI [facility] Past Medical History Medical History Anxiety Arthritis Depression Hyperlipidemia Hypertension Surgical History Surgical History History of knee surgery Hx laparoscopic cholecystectomy Performed by Dr. Allen on 12/25/21 Hx of tonsillectomy H/O section Family History Family History Father Hypertension Family history of arthritis Family history of malignant neoplasm Family history of mental disorder Mother Hypertension Social History Social History Years smoked: 20 Smoking status: Former smoker Tobacco type: cigarettes Smoking end date: 08/27/10 Additional smoking assessment comments: SOCIAL SMOKER - ONLY ON WEEKENDS - QUIT 2010 Alcohol intake: current Drinks per week: 6 Substance use: never Substance use type: does not use Living arrangements: with family Spiritual care concerns: No Exam 2 Narrative: GENERAL: [Well-appearing, well-nourished, and in no acute distress.] HEAD: Normocephalic, superficial abrasions to the right side of her face EYES: PERRLA and equal ocular movements ENT: Nares clear, no rhinorrhea or epistaxis. Mucous membranes moist. NECK: Supple. CHEST: [Clear to auscultation. No respiratory distress.] HEART: [Regular rate and rhythm]. No murmur heard. [Normal peripheral pulses.] ABDOMEN: [Soft, nondistended], [nontender], [No rigidity or guarding] EXTREMITIES: Normal range of motion. [No edema.] SKIN: Warm, dry, no rash. NEURO: [No focal deficits]. Alert and oriented [x3.] PSYCH: [Normal mood and affect.] Course Vital Signs Vital signs: Vital Signs Temperature 36.9 C 12/05/24 20:13 Pulse Rate 63 12/05/24 20:13 Respiratory Rate 18 12/05/24 20:13 Blood Pressure 141/95 H 12/05/24 20:13 Pulse Oximetry 95 12/05/24 20:13 Oxygen Delivery Room Air 12/05/24 20:13 Temperature 36.4 C 12/05/24 22:16 Pulse Rate 66 12/05/24 22:16 Respiratory Rate 18 12/05/24 22:16 Blood Pressure 160/95 H 12/05/24 22:16 Pulse Oximetry 100 12/05/24 22:16 Oxygen Delivery Room Air 12/05/24 20:13 MDM - Syncope MDM Narrative Medical decision making narrative: 54-year-old female presenting to the emergency department after a syncopal event. She has a history of hypertension, hyperlipidemia. She presents after having a witnessed syncopal event while she was outside on a both throughout the day drinking mild amount of alcohol. She states she felt dehydrated, felt lightheaded dizzy and profoundly diaphoretic and had a prodrome before she passed out briefly. She had a left-sided headache as the stool but did wake up quickly thereafter and reports no symptoms at this time. She states immediately after the fall and syncope she felt a little diaphoretic but this resolved. Currently she is in symptomatic and denies any headache, fever, chills, nausea, vomiting, vision changes, headache, chest pain or shortness of breath. She states nothing like this has happened or previously. No cardiac history to her knowledge. Patient denies any weakness or fatigue or any neurological deficits. Does not take any blood thinners. Has small abrasions to the right side of her face. Patient is not any acute physical distress now but given her concerning symptomatology and syncope with head trauma differential is broad. She did not have any syncope after the head trauma it sounds like she had a prodrome before and with lightheadedness dizziness and diaphoresis which has since resolved. She endorses not drinking enough water today and was drinking outside during the hot weather. Could be a vasovagal response, orthostatic hypotension and dehydration or potential cardiac syncope given her abnormal EKG for EMS and here in triage with a left bundle branch block. She has no cardiac history to her knowledge and previous EKG obtained 4 years ago was unremarkable with normal sinus rhythm. Patient denies any chest pain shortness of breath and has strong symmetric pulses in unremarkable cardiovascular assessment with normal vital signs. Cardiac workup was ordered this time including troponin, EKG, D-dimer, CBC, CMP. CT of the head was obtained. D-dimer did come back elevated for her age so CT angiography of the PE protocol was ordered to rule out syncope secondary to pulmonary embolism. Remaining workup pending. Patient remains hemodynamically stable and currently on pulse oximetry and telemetry monitoring. CT angiography shows no PE, no consolidations pleural effusion or pneumothorax. Heart within normal limits, vasculature within normal limits. No acute findings within the chest. EKG serially shows left bundle branch block but no scar post criteria being met for acute ACS. Troponin initial negative, delta troponin negative. Electrolytes unremarkable. Workup is unrevealing and her CT of the head and CT of the chest are normal. She remains hemodynamically stable and asymptomatic during repeat evaluations. I discussed workup findings with the patient and plan of care going forward will be for outpatient cardiology referral for the abnormal EKG but no signs or symptoms needing emergent attention or admission to the hospital. Patient and family felt comfortable with the plan and given strict return precautions for safe discharge home. Medical Records Attestation: I reviewed the patient's medical records. Lab Data Attestation: I reviewed the patient's lab results. 12/05/24 20:20 12/05/24 20:20 Labs: Lab Results 12/05/24 12/05/24 Range/Units 20:20 23:30 WBC 9.8 (4.5-10.0) K/mm3 RBC 4.84 (4.2-5.4) M/mm3 Hgb 14.5 (12.0-15.0) g/dL Hct 42.3 (37.0-47.0) % MCV 87.4 (80-100) fl MCH 30.0 (26-34) pg MCHC 34.3 (32-36) g/dl RDW 12.1 (11.5-14.5) % Plt Count 246 (150-375) k/mm3 MPV 9.3 (7.4-10.4) fl Immature Gran % (Auto) 0.3 (0-0.5) % Neut % (Auto) 46.6 (45.5-73.1) % Lymph % (Auto) 43.0 (18.3-44.2) % [place] % (Auto) 8.2 (2.6-8.5) % Eos % (Auto) 1.5 (0-4.4) % Baso % (Auto) 0.4 (0.2-1.2) % Lymph # (Auto) 4.22 H (0.9-3.2) K/mm3 [place] # (Auto) 0.8 H (0.1-0.6) K/mm3 Eos # (Auto) 0.2 (0-0.3) K/mm3 Baso # (Auto) 0.0 (0.0-0.1) K/mm3 Abs Immat Gran (auto) 0.03 (0.00-0.031) K/mm3 Absolute Neuts (auto) 4.6 (1.3-6.7) K/mm3 Absolute Nucleated RBC 0.000 (0.0-0.012) K/mm3 Nucleated RBC % 0.0 (0.0-0.2) % PT 12.4 (11.1-14.7) Seconds INR 0.9 APTT 23.6 (22.3-36.8) Seconds D-Dimer 0.68 H (<0.48) ug/mL Sodium 136 L (137-145) mmol/L Potassium 3.2 L (3.4-5.0) mmol/L Chloride 97 L (98-107) mmol/L Carbon Dioxide 25 (22-30) mmol/L Anion Gap 14 H (4-12) mmol/L BUN 23 H (7-17) mg/dL Creatinine 0.93 (0.7-1.0) mg/dL Estim Creat Clear Calc 70 ml/min Estimated GFR > 60 (59 - ) Glucose 94 (65-110) mg/dL Calcium 9.8 (8.4-10.2) mg/dL Total Bilirubin 0.6 (0.2-1.3) mg/dL AST 33 (14-36) U/L ALT 35 (6-35) U/L Alkaline Phosphatase 65 (38-126) U/L Troponin I < 0.012 < 0.012 (0.000-0.034) ng/mL Total Protein 7.8 (6.3-8.2) g/dL Albumin 4.6 (3.5-5.1) g/dL Lipase 76 (23-300) U/L Ethyl Alcohol 36 (<10) mg/dL Imaging Data Attestation: I personally reviewed and interpreted this imaging study as follows: My impression: Impressions Chest X-Ray 12/05/24 21:10 IMPRESSION: No acute cardiopulmonary process. Head CT 12/05/24 21:11 IMPRESSION: No acute intracranial process. Discharge Plan Discharge Clinical Impression: Syncope and collapse, LBBB (left bundle branch block), Acute dehydration Patient Disposition: Home Condition: Stable Instructions: Antibiotic Form, Heat Exhaustion (ED), Syncope (DC) Additional Instructions: All of your laboratory studies are normal here including your cardiac enzymes. No signs of a blood clot or any concerning findings and the CT of the chest or the CT of the head. EKG does have what is referred to as a left bundle branch block with and electrical anomaly but can safely be managed with outpatient cardiology referral in follow-up. If you experience recurrence of her symptoms or any new emergent concerns or issues please return to the emergency department otherwise follow-up with regular primary doctor and Cardiology. Patient Language: [place] Prescriptions: No Action lisinopril 30 mg tablet 30 mg PO DAILY rosuvastatin [Crestor] 20 mg tablet 20 mg PO HS hydrochlorothiazide 12.5 mg tablet 12.5 mg PO DAILY levothyroxine [Euthyrox] 50 mcg tablet 50 mcg PO DAILY cyanocobalamin (vitamin B-12) [Vitamin B-12] 500 mcg tablet 500 mcg PO DAILY vitamin E 268 mg (400 unit) capsule 268 mg PO DAILY cholecalciferol (vitamin D3) [Vitamin D3] 25 mcg (1,000 unit) capsule 1,000 unit PO DAILY magnesium oxide 500 mg magnesium tablet 500 mg PO HS aspirin [Adult Low Dose Aspirin] 81 mg tablet,delayed release (DR/EC) 81 mg PO DAILY cetirizine [Zyrtec] 10 mg Tablet 10 mg PO DAILY ibuprofen 600 mg Tablet 600 mg PO Q6H PRN (Reason: Pain) omega-3 fatty acids-fish oil 684-1,200 mg Capsule,Delayed Release(Dr/Ec) 1 cap PO DAILY Follow-up/Referrals: Rogerio Reynolds MD [Physician] - 1 Week (New onset left bundle-branch block) Liliana,MARCELLE Urena [Primary Care Provider] - Time of Disposition: 00:42
[2024-12-05 22:16] VITALS: BP 160/95; PULSE 66; RESP 18; TEMP 36.4; O2SAT 100
--- NOTE | 2024-12-05 23:29 | ECG_ITS ---
Test Date: 2024-12-05 23:37:10 Measurements Intervals [place] Rate: 61 P: 48 [place]: 172 QRS: -7 QRSD: 151 T: 107 QT: 469 QTc: 474 Interpretive Statements SINUS RHYTHM LEFT BUNDLE BRANCH BLOCK ABNORMAL ECG Compared to ECG 12/05/2024 20:14:23 No significant changes Electronically Signed On 12-06-2024 07:50:26 CDT by Giovanny Diez D.O.
[2024-12-05 23:55] LABS: Troponin I < 0.012 ng/mL (0.000-0.034)
[2024-12-06 00:53] VITALS: BP 134/68; PULSE 81; RESP 18; TEMP 36.9; O2SAT 99
== END 2024-12-06 00:54 | disposition home or self-care (01) ==
PROVIDERS: Emergency Provider Student in an Organized Health Care Education/Training Program; PCP Physician Assistant
DX: I44.7 Left bundle-branch block, unspecified (principal); E86.0 Dehydration; R55 Syncope and collapse; I10 Essential (primary) hypertension; E78.5 Hyperlipidemia, unspecified; Z87.891 Personal history of nicotine dependence
CPT/HCPCS: 36415; 70450; 71046; 71275; 80053; 82077; 83690; 84484; 85025; 85380; 85610; 85730; 93005; 99284; Q9967